=== PATIENT | female | born 1950 | race Caucasian/White ===

== ENCOUNTER → 2018-05-01 09:10 | Outpatient (CLI) | payer MEDICARE, OTHER, SELFPAY | PROVIDERS: Visit Provider Physician Assistant | DX: R30.0 Dysuria (principal) | CPT/HCPCS: 87077; 87086; 87186 ==

== ENCOUNTER → 2018-09-21 08:35 | Outpatient (CLI) | payer MEDICARE, OTHER, SELFPAY ==
[2018-09-21 09:13] LABS: Hemoglobin A1C% w Est Avg Glu 5.4 % (4.0-6.0)
[2018-09-21 09:36] LABS: BUN Creatinine Ratio 21.4 (6-22); Blood Urea Nitrogen 15 mg/dL (7-17); Calcium 9.8 mg/dL (8.4-10.2); Carbon Dioxide 29 mmol/L (22-32); Chloride 102 mmol/L (98-107); Cholesterol 143 mg/dL (140-199); Estimated Glomerular Filt Rate > 60.0 mL/min (>60); Glucose 124 mg/dL (80-110); HDL Cholesterol 60 mg/dL (40-60); HEMOLYSIS < 15 (0-50); LDL Cholesterol Calculated 63 mg/dL (<100); Potassium 4.6 mmol/L (3.4-5.1); Sodium 139 mmol/L (137-145); Triglycerides 102 mg/dL (35-150)
== END ==
PROVIDERS: PCP Internal Medicine; Visit Provider Internal Medicine
DX: E78.5 Hyperlipidemia, unspecified (principal); E11.9 Type 2 diabetes mellitus without complications; I10 Essential (primary) hypertension
CPT/HCPCS: 36415; 80048; 80061; 83036

== ENCOUNTER → 2018-10-27 18:25 | Outpatient (ROUT) | payer MEDICARE, OTHER, SELFPAY ==
[2018-10-27 18:32] LABS: Bacteria Urine None Seen
[2018-10-27 18:55] LABS: Appearance Urine UA CLEAR; Bilirubin Urine UA NEGATIVE (NEGATIVE); Color Urine UA YELLOW; Glucose Urine UA NEGATIVE (Negative); Ketones Urine UA NEGATIVE (NEGATIVE); Leukocyte Esterase Urine UA TRACE (NEGATIVE); Nitrite Urine UA NEGATIVE (Negative); Occult Blood Urine UA NEGATIVE (Negative); Protein Urine UA NEGATIVE (Negative); Urobilinogen Urine UA 0.2 E.U./dL (0.2)
[2018-10-27 19:42] LABS: RBC Urine 1-5/HPF (0-5/HPF); Renal Epithelial Cells Urine 0-1/HPF (0-1/HPF); Squamous Epithelial Cell Urine 1-5 /HPF (0-5/HPF); Transitional Epi Cells Urine 1-5/HPF (0-5/HPF); WBC Urine 1-5/HPF (0-5/HPF)
[2018-10-27 19:46] LABS: Calcium Oxalate Crystals Urine Moderate
[2018-10-27 20:23] LABS: Granular Casts Urine None seen; Hyaline Casts Urine None Seen; Other Casts Urine None Seen; Red Blood Cell Casts Urine None Seen; White Blood Cell Casts Urine None Seen
[2018-10-27 20:28] LABS: Urine Comments NOTE:
== END ==
PROVIDERS: PCP Internal Medicine; Visit Provider Internal Medicine
DX: B65.0 Schistosomiasis due to Schistosoma haematobium [urinary schistosomiasis] (principal); R30.0 Dysuria
CPT/HCPCS: 81001; 87086; 87177

== ENCOUNTER → 2018-10-28 12:56 | Outpatient (CLI) | payer MEDICARE, OTHER, SELFPAY ==
[2018-10-28 13:39] LABS: Add Manual Diff / Slide Review NO; Basophils Absolute Auto 0 /uL (0-100); Basophils Percent Auto 0.4 % (0-2); Eosinophils Absolute Auto 100 /uL (0-450); Eosinophils Percent Auto 1.5 % (2-4); Hematocrit 40.1 % (36-46); Hemoglobin 13.8 g/dL (12.0-16.0); Lymphocytes Absolute Auto 2000 /uL (1100-4500); Lymphocytes Percent Auto 22.5 % (25-40); Mean Corpuscular HGB Conc 34.4 % (30-36); Mean Corpuscular Hemoglobin 29.2 PG (26-34); Mean Corpuscular Volume 84.8 fL (80-100); Monocytes Absolute Auto 600 /uL (0-900); Monocytes Percent Auto 7.3 % (3-14); Neutrophils Absolute Auto 6000 /uL (1500-7000); Neutrophils Percent Auto 68.3 % (50-75); Platelet Count 276 X10^3/uL (150-400); Red Blood Cell Count 4.72 X10^6/uL (4.0-5.2); White Blood Cell Count 8.8 X10^3/uL (4.5-11.0)
== END ==
PROVIDERS: PCP Internal Medicine; Visit Provider Internal Medicine
DX: B65.0 Schistosomiasis due to Schistosoma haematobium [urinary schistosomiasis] (principal)
CPT/HCPCS: 36415; 85025

== ENCOUNTER → 2018-12-30 15:15 | Outpatient (CLI) | payer MEDICARE, OTHER, SELFPAY ==
--- NOTE | 2018-12-30 | DI.MG.S_ITS ---
BILATERAL DIGITAL SCREENING MAMMOGRAM 3D/2D WITH CAD: 12/30/2018 CLINICAL: Routine screening. Comparison is made to exams dated: 11/07/2014 mammogram, 02/11/2013 mammogram, and 10/17/2011 mammogram - [facility]. There are scattered fibroglandular elements in both breasts. Current study was also evaluated with a Computer Aided Detection (CAD) system. No significant masses, calcifications, or other findings are seen in either breast. There has been no significant interval change. IMPRESSION: NEGATIVE There is no mammographic evidence of malignancy. A 1 year screening mammogram is recommended. This exam was interpreted at Station ID: [id number]. NOTE: For mammograms, a report in lay terms will be sent to the patient. Approximately 15% of breast malignancies will not be visualized mammographically. In the management of a palpable breast mass, a negative mammogram must not discourage biopsy of a clinically suspicious lesion. Electronically Signed By: Holly townsend/felipe:12/30/2018 17:07:50 letter sent: Normal Exam ACR BI-RADS Category 1: Negative [id number]
== END ==
PROVIDERS: PCP Internal Medicine; Visit Provider Internal Medicine
DX: Z12.31 Encounter for screening mammogram for malignant neoplasm of breast (principal); Z13.820 Encounter for screening for osteoporosis; Z78.0 Asymptomatic menopausal state; Z82.62 Family history of osteoporosis
CPT/HCPCS: 77063; 77067; 77080

== ENCOUNTER → 2019-07-30 12:33 | Outpatient (CLI) | payer MEDICARE, OTHER, SELFPAY ==
--- NOTE | 2019-07-30 | DI.MRI.S_ITS ---
PROCEDURE: MR SHOULDER LT WO CON INDICATIONS: Unspecified disorder of synovium and tendon, left TECHNIQUE: Noncontrast oblique coronal T2 fast spin echo with fat saturation, oblique sagittal T1 spin echo and T2 fast spin echo with fat saturation, axial T1 spin echo and T2 fast spin echo with fat saturation through the shoulder. COMPARISON: None. FINDINGS: Image quality: Excellent. Rotator cuff: High-grade bursal sided partial-thickness slitlike tear of the supraspinatus tendon is seen, although no definite full-thickness involvement identified. Infraspinatus tendon appears grossly intact. Teres minor tendon appears intact. Subscapularis tendinopathy and thickening in keeping with interstitial tearing. No definite atrophy of the rotator cuff muscles Bones and bursae: No bone marrow contusions or fractures. Lateral downsloping appearance of the acromion Moderate acromioclavicular joint degeneration. Acromion demonstrates conventional anatomy, without an os acromiale. Mild subacromial-subdeltoid bursitis. Capsule and soft tissues: Labrum: Mild irregularity and fraying of the superior labrum without discrete tear, probably age-appropriate. A presumed posterior synovial fold incidentally noted image 03/07. Long head of the biceps tendon intact. The rotator interval appears normal, without fibrosis. Coracohumeral ligament intact. IMPRESSION: High-grade bursal sided slitlike partial-thickness tear of the supraspinatus tendon. No definite full-thickness defect Subscapularis tendinopathy and thickening. Mild subacromial-subdeltoid bursitis Lateral downsloping appearance of the acromion. Irregularity and fraying the superior labrum, probably age-appropriate, versus chronic tear with subsequent fibrosis and scarring. Dictated by: Satish Rock M.D. on 07/30/2019 at 14:06 Approved by: Satish Rock M.D. on 07/30/2019 at 14:32
== END ==
PROVIDERS: PCP Internal Medicine; Referring Provider Orthopaedic Surgery; Visit Provider Orthopaedic Surgery
DX: M67.912 Unspecified disorder of synovium and tendon, left shoulder (principal); M75.112 Incomplete rotator cuff tear or rupture of left shoulder, not specified as traumatic; M75.52 Bursitis of left shoulder
CPT/HCPCS: 73221

== ENCOUNTER → 2019-09-15 09:26 | Outpatient (CLI) | payer MEDICARE, OTHER, SELFPAY ==
[2019-09-15 10:22] LABS: Hemoglobin A1C% w Est Avg Glu 6.2 % (4.0-6.0)
[2019-09-15 10:35] LABS: BUN Creatinine Ratio 26.3 (6-22); Blood Urea Nitrogen 21 mg/dL (7-17); Calcium 9.5 mg/dL (8.4-10.2); Carbon Dioxide 26 mmol/L (22-32); Chloride 106 mmol/L (98-107); Cholesterol 235 mg/dL (140-199); Estimated Glomerular Filt Rate > 60.0 mL/min (>60); Glucose 128 mg/dL (80-110); HDL Cholesterol 73 mg/dL (40-60); HEMOLYSIS < 15 (0-50); LDL Cholesterol Calculated 121 mg/dL (<100); Potassium 4.5 mmol/L (3.4-5.1); Sodium 138 mmol/L (137-145); Triglycerides 206 mg/dL (35-150)
== END ==
PROVIDERS: PCP Internal Medicine; Referring Provider Internal Medicine; Visit Provider Internal Medicine
DX: I10 Essential (primary) hypertension (principal); E78.5 Hyperlipidemia, unspecified; E11.9 Type 2 diabetes mellitus without complications
CPT/HCPCS: 36415; 80048; 80061; 83036

== ENCOUNTER → 2020-01-21 08:56 | Outpatient (CLI) | payer MEDICARE, OTHER, SELFPAY ==
[2020-01-21 11:09] LABS: Hemoglobin A1C% w Est Avg Glu 6.2 % (4.0-6.0)
[2020-01-21 11:31] LABS: Alanine Aminotransferase 19 IU/L (<35); Albumin 4.2 g/dL (3.5-5.0); Albumin Globulin Ratio 1.4 (1.0-2.8); Alkaline Phosphatase 81 U/L (38-126); Aspartate Aminotransferase 24 IU/L (14-36); Bilirubin Total 1.1 mg/dL (0.2-1.3); Blood Urea Nitrogen 21 mg/dL (7-17); Calcium 9.3 mg/dL (8.4-10.2); Carbon Dioxide 27 mmol/L (22-32); Chloride 101 mmol/L (98-107); Cholesterol 272 mg/dL (140-199); Estimated Glomerular Filt Rate 55.3 mL/min (>60); Globulin 2.9 g/dL (1.7-4.1); Glucose 125 mg/dL (80-110); HDL Cholesterol 69 mg/dL (40-60); HEMOLYSIS < 15 (0-50); LDL Cholesterol Calculated 166 mg/dL (<100); Potassium 4.5 mmol/L (3.4-5.1); Sodium 136 mmol/L (137-145); Total Protein 7.1 g/dL (6.3-8.2); Triglycerides 187 mg/dL (35-150)
== END ==
PROVIDERS: PCP Internal Medicine; Referring Provider Internal Medicine; Visit Provider Internal Medicine
DX: I10 Essential (primary) hypertension (principal); E11.9 Type 2 diabetes mellitus without complications; E78.5 Hyperlipidemia, unspecified
CPT/HCPCS: 36415; 80053; 80061; 83036

== ENCOUNTER → 2020-07-01 15:12 | Outpatient (CLI) | payer MEDICARE, OTHER, SELFPAY ==
--- NOTE | 2020-07-01 15:14 | DI.MG.S_ITS ---
BILATERAL DIGITAL SCREENING MAMMOGRAM 3D/2D WITH CAD: 07/01/2020 CLINICAL: Routine screening. Comparison is made to exams dated: 12/30/2018 mammogram and 11/07/2014 mammogram - [facility]. There are scattered fibroglandular elements in both breasts. Current study was also evaluated with a Computer Aided Detection (CAD) system. No significant masses, calcifications, or other findings are seen in either breast. There has been no significant interval change. IMPRESSION: NEGATIVE There is no mammographic evidence of malignancy. A 1 year screening mammogram is recommended. This exam was interpreted at Station ID: [id number]. NOTE: For mammograms, a report in lay terms will be sent to the patient. Approximately 15% of breast malignancies will not be visualized mammographically. In the management of a palpable breast mass, a negative mammogram must not discourage biopsy of a clinically suspicious lesion. Electronically Signed By: Leonel bonilla/felipe:07/03/2020 09:27:19 letter sent: Normal Exam ACR BI-RADS Category 1: Negative [id number]
== END ==
PROVIDERS: PCP Internal Medicine; Referring Provider Internal Medicine; Visit Provider Internal Medicine
DX: Z12.31 Encounter for screening mammogram for malignant neoplasm of breast (principal)
CPT/HCPCS: 77063; 77067

== ENCOUNTER → 2020-09-05 19:16 | Outpatient (ROUT) | payer MEDICARE, OTHER, SELFPAY ==
[2020-09-05 20:22] LABS: BUN Creatinine Ratio 24.1 (6-22); Blood Urea Nitrogen 19 mg/dL (7-17); Calcium 9.5 mg/dL (8.4-10.2); Carbon Dioxide 23 mmol/L (22-32); Chloride 99 mmol/L (98-107); Estimated Glomerular Filt Rate > 60.0 mL/min (>60); Glucose 83 mg/dL (80-110); HEMOLYSIS < 15 (0-50); Magnesium 2.1 mg/dL (1.6-2.3); Potassium 4.4 mmol/L (3.4-5.1); Sodium 134 mmol/L (137-145)
== END ==
PROVIDERS: PCP Internal Medicine; Visit Provider Family Medicine
DX: R20.2 Paresthesia of skin (principal)
CPT/HCPCS: 80048; 83735

== ENCOUNTER → 2020-12-12 07:05 | Outpatient (CLI) | payer MEDICARE, OTHER, SELFPAY ==
[2020-12-12 08:16] LABS: Add Manual Diff / Slide Review NO; Basophils Absolute Auto 0 /uL (0-100); Basophils Percent Auto 0.5 % (0-2); Eosinophils Absolute Auto 200 /uL (0-450); Eosinophils Percent Auto 2.1 % (2-4); Hematocrit 41.1 % (36-46); Hemoglobin 13.8 g/dL (12.0-16.0); Lymphocytes Absolute Auto 1700 /uL (1100-4500); Lymphocytes Percent Auto 23.2 % (25-40); Mean Corpuscular HGB Conc 33.7 % (30-36); Mean Corpuscular Hemoglobin 28.8 PG (26-34); Mean Corpuscular Volume 85.4 fL (80-100); Monocytes Absolute Auto 600 /uL (0-900); Neutrophils Absolute Auto 4800 /uL (1500-7000); Neutrophils Percent Auto 66.2 % (50-75); Platelet Count 246 X10^3/uL (150-400); Red Blood Cell Count 4.81 X10^6/uL (4.0-5.2); Red Cell Distribution Width 14.6 % (11.6-14.8); White Blood Cell Count 7.3 X10^3/uL (4.5-11.0)
[2020-12-12 08:28] LABS: Hemoglobin A1C% w Est Avg Glu 5.2 % (4.0-6.0)
[2020-12-12 08:52] LABS: Alanine Aminotransferase 16 IU/L (<35); Albumin Globulin Ratio 1.7 (1.0-2.8); Alkaline Phosphatase 69 U/L (38-126); Aspartate Aminotransferase 24 IU/L (14-36); BUN Creatinine Ratio 18.3 (6-22); Bilirubin Total 0.8 mg/dL (0.2-1.3); Blood Urea Nitrogen 15 mg/dL (7-17); Calcium 9.6 mg/dL (8.4-10.2); Carbon Dioxide 29 mmol/L (22-32); Chloride 102 mmol/L (98-107); Cholesterol 136 mg/dL (140-199); Estimated Glomerular Filt Rate > 60.0 mL/min (>60); Globulin 2.4 g/dL (1.7-4.1); Glucose 90 mg/dL (80-110); HDL Cholesterol 66 mg/dL (40-60); HEMOLYSIS < 15 (0-50); LDL Cholesterol Calculated 55 mg/dL (<100); Potassium 4.5 mmol/L (3.4-5.1); Sodium 137 mmol/L (137-145); Total Protein 6.4 g/dL (6.3-8.2); Triglycerides 77 mg/dL (35-150)
[2020-12-12 08:53] LABS: Creatinine Urine Random 65.7 mg/dL
[2020-12-12 09:01] LABS: Microalbumin Urine Random < 0.6 mg/dL (0-1.6)
== END ==
PROVIDERS: PCP Student in an Organized Health Care Education/Training Program; Referring Provider Student in an Organized Health Care Education/Training Program; Visit Provider Student in an Organized Health Care Education/Training Program
DX: E11.9 Type 2 diabetes mellitus without complications (principal); E78.5 Hyperlipidemia, unspecified
CPT/HCPCS: 36415; 80053; 80061; 82043; 82570; 83036; 85025

== ENCOUNTER → 2021-02-16 12:08 | Outpatient (CLI) | payer MEDICARE, OTHER, SELFPAY ==
--- NOTE | 2021-02-16 | DI.RAD.S_ITS ---
PROCEDURE: XR DEXA AXIAL SKELETON INDICATIONS: Unspecified menopausal and perimenopausal disorder COMPARISON: None. FINDINGS: This blank DEXA report has been sent in error by the PACS system. The correct and complete report will be forthcoming in 1-2 days. Thank you for your patience and understanding. Dictated by: Leonel Rose M.D. on 02/16/2021 at 12:31 Approved by: Leonel Rose M.D. on 02/16/2021 at 12:31
== END ==
PROVIDERS: PCP Student in an Organized Health Care Education/Training Program; Referring Provider Student in an Organized Health Care Education/Training Program; Visit Provider Student in an Organized Health Care Education/Training Program
DX: N95.9 Unspecified menopausal and perimenopausal disorder (principal); M85.851 Other specified disorders of bone density and structure, right thigh
CPT/HCPCS: 77080

== ENCOUNTER → 2021-03-23 09:12 | Outpatient (CLI) | payer MEDICARE, OTHER, SELFPAY ==
[2021-03-23 10:48] LABS: COVID19 -Nasal RAPID Negative (Negative)
== END ==
PROVIDERS: PCP Student in an Organized Health Care Education/Training Program; Visit Provider Surgery
DX: Z01.812 Encounter for preprocedural laboratory examination (principal); Z20.822 Contact with and (suspected) exposure to COVID-19
CPT/HCPCS: 87635; C9803

== ENCOUNTER 2021-03-26 08:11 | Day surgery (SDC) | payer MEDICARE, OTHER, SELFPAY ==
[2021-03-26] VITALS (8 sets, daily range): BP systolic 114–139; BP diastolic 62–74; PULSE 57–66; RESP 10–16; TEMP 36.1–36.8; O2SAT 97–99; BMI 22.6
[2021-03-26] MEDS: LACTATED RINGERS 1,000 ML 200 ML IV (08:46)
--- NOTE | 2021-03-26 09:19 | PM.HP.1 ---
History of Present Illness History of Present Illness Date Patient Seen: 03/26/21 Time Patient Seen: 09:19 Chief complaint: SCREENING COLONOSCOPY Narrative: The patient presents for colorectal sreening. Previous colonoscopy 10 years ago normal. Her mother had a history of colon cancer. On further history denies any recent gastrointestinal symptoms. No nausea, vomiting, abdominal pain, loss of appetite, unexplained weight loss, change in bowel habits, diarrhea, constipation, melena, hematochezia, or bright red blood per rectum. Patient History Family & Social History Social History: household members spouse Tobacco & Substance use: Smoking Status Never smoker alcohol intake current Substance Use Type does not use Meds Home Medications and Allergies Home Medications Medication Instructions Recorded Confirmed Type sertraline 100 mg tablet 100 mg PO QDAY #0 04/22/11 03/10/19 History simvastatin 40 mg tablet 40 mg PO QDAY #0 04/22/11 03/10/19 History bupropion HCl PO 05/01/18 03/10/19 History amlodipine 5 mg tablet mg 03/26/21 History metformin 500 mg tablet,extended mg PO 03/26/21 History release 24 hr Allergies Allergy/AdvReac Type Severity Reaction Status Date / Time bacitracin Allergy Intermediate OINTMENT Verified 03/26/21 08:24 USED ON EYE AND CAUSED A RASH LOCALIZED neomycin Allergy Intermediate SKIN Verified 03/26/21 08:24 [From Neosporin + Pain HATFIELD AND Relief] BLISTERS polymyxin B Allergy Intermediate SKIN Verified 03/26/21 08:24 [From Neosporin + Pain HATFIELD AND Relief] BLISTERS pramoxine Allergy Intermediate SKIN Verified 03/26/21 08:24 [From Neosporin + Pain HATFIELD AND Relief] BLISTERS Exam Vital Signs (past 8 hours): - 03/26/21 08:31 Temperature 98.2 F Pulse Rate 62 Respiratory Rate 16 Blood Pressure 132/74 Pulse Oximetry 99 Oxygen Delivery Method Room Air Narrative Exam Narrative: Constitutional-She is oriented to person, place and time. No apparent distress Cardiovascular- regular rate, no peripheral edema Pulmonary-unlabored respiratory effort, no audible wheezing Abdominal-soft, non-tender, non-distended Musculoskeletal-no cyanosis or clubbing Neurological-nonfocal, normal strength throughout Skin-warm and dry Assessment & Plan Assessment & Plan narrative: The patient requires colorectal screening and colonoscopy is recommended. Technical details were discussed. Risks, benefits, alternatives explained. Risks including but not limited to myocardial infarction, aspiration, bleeding, pain, missed lesion, incomplete examination, need for further radiographic studies, colonic perforation, and need for major abdominal surgery were discussed. All questions were answered to their satisfaction, and they are in agreement with this plan. Time Spent With Patient Critical Care time: I spent a total of [] minutes of critical care time on this patient's care today; this time is exclusive of procedural time.
[2021-03-26] MEDS: fentaNYL 250 MCG/5 ML INJ IV (09:28)
[2021-03-26] MEDS: MIDAZOLAM 5 MG/5 ML VIAL IV (09:33)
--- NOTE | 2021-03-26 09:57 | PM.OP.COLON ---
Operative Date/Time/Diagnoses Date of procedure: 03/26/21 Time of procedure: 09:57 Pre-op diagnosis: Screening colonoscopy Post-op diagnosis: same Procedure & Clinicians Study performed: Colonoscopy Same procedure as scheduled: Yes Indications: Screening, family history of colon cancer Surgeon: Manuel Feliciano Procedure Notes Procedure in detail: Medications: Conscious sedation using 5 mg IV midazolam and 150 mcg IV of fentanyl The history and physical was performed/updated and the patient is ASA class is 2. The procedure was discussed in detail with the patient. Potential risks complications including infection, bleeding, missed diagnosis, perforation, need for surgery, and were explained. Their questions were answered and informed consent was obtained. Patient was brought to the procedure room and placed standard monitoring equipment. The patient's vital signs were monitored continuously throughout the entire procedure. Prior to starting time-out was performed. The patient was placed in the left lateral recumbent position. Procedural sedation was administered. Examination began with a thorough inspection of the perianal area there was no evidence of fissures, fistulae, external hemorrhoids or cutaneous malignancy. The colonoscopy scope was then placed into the anal canal and was advanced to the cecum, which was identified by the ileocecal valve, and the confluence of the taenia. The scope was then slowly withdrawn examining colon thoroughly in all directions, irrigating it of any residual stool. FINDINGS 1. No masses or polyps 2. Tortuous colon The patient tolerated the procedure well. They will be discharged once criteria are met. The prep was of good/excellent quality. The withdrawl time was 6 minutes. The sedation time was 27 minutes. Specimen(s): none sent Complications: none Impression: Normal colonoscopy Post-procedure Recommendations: Colonoscopy in 5 years Disposition: same day surgery
--- NOTE | 2021-03-26 10:54 | SUR.PHASEI ---
1040 report given to KIMBERLY Bay
== END 2021-03-26 11:00 | disposition home or self-care (01) ==
PROVIDERS: PCP Student in an Organized Health Care Education/Training Program; Referring Provider Surgery; Visit Provider Surgery
PROC: 0DJD8ZZ Inspection of Lower Intestinal Tract, Via Natural or Artificial Opening Endoscopic (ICD-10-PCS; CPT 45378; principal; 2021-03-26 09:15)
DX: Z12.11 Encounter for screening for malignant neoplasm of colon (principal); Z80.0 Family history of malignant neoplasm of digestive organs
CPT/HCPCS: G0105; 82962; 99152; 99153; J2250; J3010

== ENCOUNTER → 2021-06-06 15:08 | Outpatient (CLI) | payer MEDICARE, OTHER, SELFPAY ==
--- NOTE | 2021-06-06 15:13 | DI.RAD.S_ITS ---
PROCEDURE: XR CHEST 2V INDICATIONS: CHEST PAIN TECHNIQUE: 2 views of the chest were acquired. COMPARISON: [facility], CHEST 2 VIEW, 06/19/2017, 14:42. [facility], CHEST 1 VIEW, 04/22/2011, 3:22. FINDINGS: Surgical changes and devices: None. Lungs and pleura: Lungs are clear. No pleural effusions or pneumothorax. Mediastinum: Mediastinal contours are normal. Heart size is normal. Bones and chest wall: No suspicious bony abnormalities. Soft tissues appear unremarkable. IMPRESSION: No acute cardiopulmonary abnormality. Dictated by: Bishnu Grullon M.D. on 06/06/2021 at 16:30 Approved by: Bishnu Grullon M.D. on 06/06/2021 at 16:35
== END ==
PROVIDERS: PCP Student in an Organized Health Care Education/Training Program; Referring Provider Internal Medicine; Visit Provider Internal Medicine
DX: R07.1 Chest pain on breathing (principal)
CPT/HCPCS: 71046

== ENCOUNTER 2021-10-21 21:01 | Inpatient (IN) | payer MEDICARE, OTHER, SELFPAY ==
[2021-10-21 21:10] VITALS: BP 132/98; PULSE 100; RESP 18; TEMP 39.3; O2SAT 98; BMI 26.5
[2021-10-21 21:28] VITALS: BP 143/66; PULSE 93; O2SAT 96
[2021-10-21] MEDS: ONDANSETRON 4 MG/2 ML INJ IV (21:29)
[2021-10-21] MEDS: SODIUM CHLORIDE 0.9% 2,041.17 ML 680.39 ML IV (21:29)
[2021-10-21 21:30] VITALS: BP 130/60; PULSE 94; O2SAT 95
[2021-10-21] MEDS: levoFLOXacin 750 MG/150 ML PIGGYBACK 100 MG IV (21:41)
[2021-10-21 21:46] LABS: Lactate (Lactic Acid) 1.3 mmol/L (0.7-2.1)
[2021-10-21 21:47] LABS: Alanine Aminotransferase 15 IU/L (<35); Albumin 3.8 g/dL (3.5-5.0); Albumin Globulin Ratio 1.2 (1.0-2.8); Alkaline Phosphatase 80 U/L (38-126); Aspartate Aminotransferase 23 IU/L (14-36); BUN Creatinine Ratio 19.4 (6-22); Bilirubin Total 1.2 mg/dL (0.2-1.3); Blood Urea Nitrogen 24 mg/dL (7-17); Calcium 8.6 mg/dL (8.4-10.2); Carbon Dioxide 24 mmol/L (22-32); Chloride 99 mmol/L (98-107); Estimated Glomerular Filt Rate 47 mL/min (>60); Globulin 3.2 g/dL (1.7-4.1); Glucose 147 mg/dL (80-110); HEMOLYSIS < 15 (0-50); Hematocrit 34.8 % (36-46); Hemoglobin 11.9 g/dL (12.0-16.0); Lipase 172 U/L (23-300); Mean Corpuscular HGB Conc 34.2 % (30-36); Mean Corpuscular Hemoglobin 29.1 PG (26-34); Mean Corpuscular Volume 85.1 fL (80-100); Platelet Count 242 X10^3/uL (150-400); Potassium 4.2 mmol/L (3.4-5.1); Red Blood Cell Count 4.09 X10^6/uL (4.0-5.2); Red Cell Distribution Width 13.2 % (11.6-14.8); Sodium 131 mmol/L (137-145); White Blood Cell Count 16.7 X10^3/uL (4.5-11.0)
[2021-10-21 21:48] LABS: Add Manual Diff / Slide Review YES
--- NOTE | 2021-10-21 21:56 | ED.ABDPAIN ---
HPI - Abdominal Pain General Chief Complaint: Abdominal Pain Stated Complaint: FEVER 102f, abd PAIN TO LOWER BACK PAIN Time Seen by Provider: 10/21/21 21:27 Source: patient Mode of arrival: Ambulatory History of Present Illness HPI narrative: 71-year-old female nonsmoker with history of hypertension, hyperlipidemia and diabetes presents with her in the chief complaint of a sudden onset left lower quadrant pain that woke her from sleep yesterday morning and has resulted in multiple episodes of nausea and vomiting. She has had fever and shaking chills along with poor appetite and weakness. She has been mildly confused. She states her urine has been a bit cloudy but traditionally when she has urine infections she has more classic symptoms such as dysuria, frequency and urgency which were not the case this time around. She denies runny nose, sore throat or cough. She has no chest pain or shortness of breath. She denies any constipation but did have 1 episode of loose stool with an episode of vomiting yesterday. She states that her pain is worse when she moves and improves with rest. Related Data Home Medications Medication Instructions Recorded Confirmed sertraline 100 mg tablet 100 mg PO QDAY #0 04/22/11 03/10/19 simvastatin 40 mg tablet 40 mg PO QDAY #0 04/22/11 03/10/19 bupropion HCl PO 05/01/18 03/10/19 amlodipine 5 mg tablet mg 03/26/21 metformin 500 mg tablet,extended mg PO 03/26/21 release 24 hr Allergies Allergy/AdvReac Type Severity Reaction Status Date / Time bacitracin Allergy Intermediate OINTMENT Verified 10/21/21 21:10 USED ON EYE AND CAUSED A RASH LOCALIZED neomycin Allergy Intermediate SKIN Verified 10/21/21 21:10 [From Neosporin + Pain HATFIELD AND Relief] BLISTERS polymyxin B Allergy Intermediate SKIN Verified 10/21/21 21:10 [From Neosporin + Pain HATFIELD AND Relief] BLISTERS pramoxine Allergy Intermediate SKIN Verified 10/21/21 21:10 [From Neosporin + Pain HATFIELD AND Relief] BLISTERS Review of Systems Review of Systems Narrative: GENERAL: See HPI HEENT: Denies sinus pain, ear pain, sore throat, difficulty swallowing, dizziness. RESPIRATORY: Denies dyspnea, cough, wheezing, hemoptysis, sputum. CARDIOVASCULAR: Denies chest pain, palpitations, orthopnea, edema, GASTROINTESTINAL: See HPI : See HPI MUSCULOSKELETAL: denies weakness, joint pain, or bony pain SKIN: Denies rash, skin lesions, or other NEUROLOGIC: Denies weakness, headache, numbness, change in speech, confusion, seizures, incoordination. PSYCHIATRIC: No concerning psychosocial issues. 12 point review of systems is negative except for those stated above Patient History Social History household members: spouse Smoking Status: Never smoker alcohol intake: current Smoking Status: Never smoker Substance Use Type: does not use Exam Narrative Exam Narrative: GENERAL: [71] year old patient appears stated age. Well-developed patient, in moderate distress. HEAD: Atraumatic. Normocephalic. EYES: Pupils equal round and reactive. Extraocular motions intact. No scleral icterus. No injection or drainage. ENT: Nose without bleeding, purulent drainage. Throat without erythema, tonsillar hypertrophy or exudate. Airway patent. NECK: Trachea midline. Non tender CARDIOVASCULAR: Tachycardic and regular rhythm without murmurs, gallops, or rubs. RESPIRATORY: Clear to auscultation. Breath sounds equal bilaterally. No wheezes, rales, or rhonchi. GASTROINTESTINAL: Abdomen soft, left lower quadrant pain, no rebound nondistended. EXTREMITIES: No edema or joint tenderness. BACK: Nontender without deformity or crepitance. Left flank tender to palpation NEURO: AOx3. SKIN: No rash or erythema of visible areas Initial Vital Signs Initial Vital Signs: Vital Signs Temperature 102.7 F H 10/21/21 21:10 Pulse Rate 100 H 10/21/21 21:10 Respiratory Rate 18 10/21/21 21:10 Blood Pressure 132/98 H 10/21/21 21:10 Pulse Oximetry 98 10/21/21 21:10 Course Course Course Narrative: Sepsis Guideline Compliance It is my opinion that the patient DOES in fact have a likely infectious etiology for meeting Sepsis Criteria. SIRS Criteria: [ ] HR (2109:), [ ] BP (time:), [ 22] (2199) , [16.7 ] WBC (2124) Criteria for Severe Sepsis: [ ] Lactate > 2 [ ] BP < 90 [ ] Creat > 2.0 [ ] T. Bili > 2.0 [ x] No criteria for Severe Sepsis / Septic Shock in ED Time of Severe Sepsis / Septic Shock: [ ] Upon meeting sepsis criteria resuscitation according to Best Practice Statements and in accordance with this patient?s safety the following was initiated: Fluids: 30mL/kg of IV crystalloid fluid ordered to be given within the first 1 hour of meeting sepsis criteria. [ x] ABW used [ ] IBW (insert IBW) used due to BMI > 30 Antibiotics: IV antimicrobials be initiated as soon as possible after recognition and within one hour for both sepsis and septic shock Orders Ordered: ED Orders 10/21/21 21:25 Complete Blood Count AUTO DIFF Stat Comprehensive Metabolic Panel Stat Lactate (Lactic Acid) Stat Lipase Stat Procalcitonin Stat 10/21/21 21:37 Blood Culture Stat 10/21/21 21:41 Urine Culture Stat Urine Microscopic Stat 10/21/21 22:07 CT abdomen pelvis w con Stat 10/21/21 22:10 Chest [XR chest 1V] Stat 10/21/21 22:19 EKG-12 Lead Stat 10/21/21 22:39 COVID19 -Nasal RAPID/Pre-Proc Stat Sodium Chloride (Normal Saline 0.9%) 2,041.17 mls @ 680.39 mls/hr 30 ml/kg infuse over 3 hr (2041.17 ml) IV NOW ONE Stop: 10/22/21 00:26 Last Admin: 10/21/21 21:29 Dose: 680.39 mls/hr Documented by: PURVI Discontinued Medications Levofloxacin (Levaquin) 750 mg in 150 mls @ 100 mls/hr IV NOW ONE Stop: 10/21/21 22:56 Last Admin: 10/21/21 21:41 Dose: 100 mls/hr Documented by: MANA Ondansetron HCl (Ondansetron 4 Mg/2 Ml Inj) 4 mg IV NOW ONE Stop: 10/21/21 21:22 Last Admin: 10/21/21 21:29 Dose: 4 mg Documented by: PURVI Vital Signs Vital signs: Vital Signs - 8 hr 10/21/21 21:10 10/21/21 21:28 10/21/21 21:30 Temperature 102.7 F H Pulse Rate 100 H 93 H 94 H Respiratory Rate 18 Blood Pressure 132/98 H 143/66 H 130/60 Pulse Oximetry 98 96 95 10/21/21 22:00 10/21/21 22:38 Temperature Pulse Rate 96 H 97 H Respiratory Rate 22 23 Blood Pressure 129/62 Pulse Oximetry 97 98 MDM - Abdominal Pain Lab Data Result diagrams: 10/21/21 21:25 10/21/21 21:25 Labs: Lab Results 10/21/21 10/21/21 10/21/21 Range/Units 21:25 21:25 21:25 WBC 16.7 H (4.5-11.0) X10^3/uL RBC 4.09 (4.0-5.2) X10^6/uL Hgb 11.9 L (12.0-16.0) g/dL Hct 34.8 L (36-46) % MCV 85.1 (80-100) fL MCH 29.1 (26-34) PG MCHC 34.2 (30-36) % RDW 13.2 (11.6-14.8) % Plt Count 242 (150-400) X10^3/uL Neut % (Auto) Not Reportable Lymph % (Auto) Not Reportable [place] % (Auto) Not Reportable Eos % (Auto) Not Reportable Baso % (Auto) Not Reportable Lymph # (Auto) Not Reportable [place] # (Auto) Not Reportable Baso # (Auto) Not Reportable Total Counted 100 Seg Neutrophils % 86.0 H (38-70) % Band Neutrophils % 3.0 (3-7) % Lymphocytes % (Manual) 6.0 L (25-45) % Monocytes % (Manual) 5.0 (2-11) % Neutrophils # (Manual) 20618 H (8239-2286) /uL RBC Morphology Normal morphology Sodium 131 L (137-145) mmol/L Potassium 4.2 (3.4-5.1) mmol/L Chloride 99 (98-107) mmol/L Carbon Dioxide 24 (22-32) mmol/L BUN 24 H (7-17) mg/dL Creatinine 1.24 H (0.52-1.04) mg/dL Estimated GFR 47 L (>60) mL/min BUN/Creatinine Ratio 19.4 (6-22) Glucose 147 H (80-110) mg/dL Lactate 1.3 (0.7-2.1) mmol/L Calcium 8.6 (8.4-10.2) mg/dL Total Bilirubin 1.2 (0.2-1.3) mg/dL AST 23 (14-36) IU/L ALT 15 (<35) IU/L Alkaline Phosphatase 80 (38-126) U/L Total Protein 7.0 (6.3-8.2) g/dL Albumin 3.8 (3.5-5.0) g/dL Globulin 3.2 (1.7-4.1) g/dL Albumin/Globulin Ratio 1.2 (1.0-2.8) Lipase 172 (23-300) U/L Procalcitonin (<0.5) ng/mL Urine RBC (0-5/HPF) Urine WBC (0-5/HPF) Urine Bacteria (None) Ur Culture Indicated? Micro UA Comment SARS-CoV-2 (PCR) (Negative) 10/21/21 10/21/21 10/21/21 Range/Units 21:25 21:41 22:39 WBC (4.5-11.0) X10^3/uL RBC (4.0-5.2) X10^6/uL Hgb (12.0-16.0) g/dL Hct (36-46) % MCV (80-100) fL MCH (26-34) PG MCHC (30-36) % RDW (11.6-14.8) % Plt Count (150-400) X10^3/uL Neut % (Auto) Lymph % (Auto) [place] % (Auto) Eos % (Auto) Baso % (Auto) Lymph # (Auto) [place] # (Auto) Baso # (Auto) Total Counted Seg Neutrophils % (38-70) % Band Neutrophils % (3-7) % Lymphocytes % (Manual) (25-45) % Monocytes % (Manual) (2-11) % Neutrophils # (Manual) (3584-5177) /uL RBC Morphology Sodium (137-145) mmol/L Potassium (3.4-5.1) mmol/L Chloride (98-107) mmol/L Carbon Dioxide (22-32) mmol/L BUN (7-17) mg/dL Creatinine (0.52-1.04) mg/dL Estimated GFR (>60) mL/min BUN/Creatinine Ratio (6-22) Glucose (80-110) mg/dL Lactate (0.7-2.1) mmol/L Calcium (8.4-10.2) mg/dL Total Bilirubin (0.2-1.3) mg/dL AST (14-36) IU/L ALT (<35) IU/L Alkaline Phosphatase (38-126) U/L Total Protein (6.3-8.2) g/dL Albumin (3.5-5.0) g/dL Globulin (1.7-4.1) g/dL Albumin/Globulin Ratio (1.0-2.8) Lipase (23-300) U/L Procalcitonin 8.40 H (<0.5) ng/mL Urine RBC 1-5/hpf (0-5/HPF) Urine WBC 10-30/hpf H (0-5/HPF) Urine Bacteria Many (>30) H (None) Ur Culture Indicated? Specimen cultured Micro UA Comment * SARS-CoV-2 (PCR) Negative (Negative) Point of care testing: Urine Dip Bedside Urine Glucose Negative Bedside Urine Bilirubin - Negative Bedside Urine Ketone - Negative Urine Specific [place] 1.01 Bedside Urine Occult Blood +++ Bedside Urine pH 6.0 Bedside Urine Protein ++ 100 Bedside Urine Urobilinogen - Negative Bedside Urine Nitrite - Negative Bedside Urine Leukocytes ++ [address] scan - abdomen/pelvis: Radiologist's Impression: Launch?[place] [address] CT Scan Report Signed Patient: Amelie Tucker MR#: [id number] : 1950 Acct:[id number] Age/Sex: 71 / F Date of Service: 10/21/21 Loc: ED Accession Number: [id number] ?? Procedure: CT abdomen pelvis w con Ordering Provider: Grey Martinez D.O. PROCEDURE:? CT ABDOMEN PELVIS W CON ? INDICATIONS:? severe lower abdominal pain, sepsis ? TECHNIQUE:? After the administration of IV contrast, axial sections were acquired from the lung bases to the pubic symphysis.? Coronal and sagittal reformats were performed.? For radiation dose reduction, the following was used:? automated exposure control, adjustment of mA and/or kV according to patient size. ? COMPARISON:? None. ? FINDINGS:? Image quality:? Excellent.? ? Lung bases:? There is mild dependent atelectasis.? ? Heart:? Heart is normal in size.? There is a small hiatal hernia. ? ? ABDOMEN: Liver:? No mass lesion. Gallbladder:? Within normal limits without calcified gallstones.? ? Biliary ducts:? No biliary ductal dilatation.? ? Pancreas:? Unremarkable.? ? Spleen:? Normal in size.? ? Adrenal Glands:? No adrenal nodules.? ? Kidneys and Ureters:? There is heterogeneous enhancement of the left kidney suggestive of pyelonephritis.? No hydronephrosis.? There is mild urothelial thickening and enhancement in the left renal collecting system and proximal left ureter.? No renal stones.? No perinephric or intrarenal fluid collections to suggest abscess.? There is mild left perinephric stranding.? No right hydronephrosis or right urothelial thickening.? There are small hypodense foci within the kidneys which are too small to characterize but likely represent cysts.? ? Stomach and Bowel:? Stomach, small bowel loops, and colon are normal in caliber and wall thickness.? No pericecal inflammatory changes to suggest appendicitis.? There are a few colonic diverticula without acute diverticulitis.? Peritoneum:? No abnormal intraperitoneal fluid.? No free air.? ? Ventral Wall: ? No hernia.? Abdominal Nodes:? No retroperitoneal or mesenteric adenopathy by size criteria.? Vessels:? Aorta and inferior vena cava are normal in size.? ? PELVIS: Pelvic Organs:? Unremarkable.? ? Bladder:? Unremarkable.? ? Pelvic Nodes: No enlarged lymph nodes.? Miscellaneous: No inguinal hernias are seen. ? ? ? Bones:? Visualized osseous structures demonstrate no suspicious focal lesions. ? IMPRESSION:? ? 1.? Heterogeneous enhancement of the left kidney is nonspecific but is suggestive of pyelonephritis.? No hydronephrosis.? No perinephric or intrarenal abscess collections. ? 2. Mild asymmetric left urothelial thickening and enhancement in the left renal collecting system and proximal left ureter compatible with a urinary tract infection.? ? 3. No evidence of diverticulitis. ? ? Dictated by: Suhas Flanagan M.D. on 10/21/2021 at 23:01 ? ? Approved by: Suhas Flanagan M.D. on 10/21/2021 at 23:07 ? Discharge Plan Departure Patient Disposition: Admitted As Inpatient Clinical Impression: Acute pyelonephritis, Sepsis Admit Date/Time: 10/21/21 23:18
[2021-10-21 22:00] VITALS: BP 129/62; PULSE 96; RESP 22; O2SAT 97
--- NOTE | 2021-10-21 22:07 | DI.CT.S_ITS ---
PROCEDURE: CT ABDOMEN PELVIS W CON INDICATIONS: severe lower abdominal pain, sepsis TECHNIQUE: After the administration of IV contrast, axial sections were acquired from the lung bases to the pubic symphysis. Coronal and sagittal reformats were performed. For radiation dose reduction, the following was used: automated exposure control, adjustment of mA and/or kV according to patient size. COMPARISON: None. FINDINGS: Image quality: Excellent. Lung bases: There is mild dependent atelectasis. Heart: Heart is normal in size. There is a small hiatal hernia. ABDOMEN: Liver: No mass lesion. Gallbladder: Within normal limits without calcified gallstones. Biliary ducts: No biliary ductal dilatation. Pancreas: Unremarkable. Spleen: Normal in size. Adrenal Glands: No adrenal nodules. Kidneys and Ureters: There is heterogeneous enhancement of the left kidney suggestive of pyelonephritis. No hydronephrosis. There is mild urothelial thickening and enhancement in the left renal collecting system and proximal left ureter. No renal stones. No perinephric or intrarenal fluid collections to suggest abscess. There is mild left perinephric stranding. No right hydronephrosis or right urothelial thickening. There are small hypodense foci within the kidneys which are too small to characterize but likely represent cysts. Stomach and Bowel: Stomach, small bowel loops, and colon are normal in caliber and wall thickness. No pericecal inflammatory changes to suggest appendicitis. There are a few colonic diverticula without acute diverticulitis. Peritoneum: No abnormal intraperitoneal fluid. No free air. Ventral Wall: No hernia. Abdominal Nodes: No retroperitoneal or mesenteric adenopathy by size criteria. Vessels: Aorta and inferior vena cava are normal in size. PELVIS: Pelvic Organs: Unremarkable. Bladder: Unremarkable. Pelvic Nodes: No enlarged lymph nodes. Miscellaneous: No inguinal hernias are seen. Bones: Visualized osseous structures demonstrate no suspicious focal lesions. IMPRESSION: 1. Heterogeneous enhancement of the left kidney is nonspecific but is suggestive of pyelonephritis. No hydronephrosis. No perinephric or intrarenal abscess collections. 2. Mild asymmetric left urothelial thickening and enhancement in the left renal collecting system and proximal left ureter compatible with a urinary tract infection. 3. No evidence of diverticulitis. Dictated by: Suhas Flanagan M.D. on 10/21/2021 at 23:01 Approved by: Suhas Flanagan M.D. on 10/21/2021 at 23:07
--- NOTE | 2021-10-21 22:10 | DI.RAD.S_ITS ---
PROCEDURE: XR CHEST 1V INDICATIONS: sepsis TECHNIQUE: One view of the chest was acquired. COMPARISON: [facility], CR, XR CHEST 2V, 06/06/2021, 16:19. FINDINGS: Surgical changes and devices: None. Lungs and pleura: Lungs are clear. There is hyperinflation of the lungs with flattening of the hemidiaphragms compatible with COPD. No pleural effusions or pneumothorax. Mediastinum: Mediastinal contours appear normal. Heart size is normal. Bones and chest wall: No suspicious bony lesions. Overlying soft tissues appear unremarkable. IMPRESSION: 1. No acute cardiopulmonary disease. 2. Findings compatible with COPD redemonstrated. Dictated by: Suhas Flanagan M.D. on 10/21/2021 at 23:13 Approved by: Suhas Flanagan M.D. on 10/21/2021 at 23:14
[2021-10-21 22:13] LABS: Bacteria Urine Many (>30); Culture Indicated Urine Specimen Cultured; RBC Urine 1-5/HPF (0-5/HPF); WBC Urine 10-30/HPF (0-5/HPF)
[2021-10-21 22:38] VITALS: PULSE 97; RESP 23; O2SAT 98
[2021-10-21 23:02] LABS: COVID19 -Nasal RAPID Negative (Negative)
[2021-10-21 23:14] LABS: Neutrophils Absolute Manual 14863 /uL (3000-5900); RBC Morphology Normal Morphology; Total Cells Counted 100
[2021-10-21 23:42] VITALS: BP 117/44; PULSE 86; RESP 16; TEMP 37.7; O2SAT 97; BMI 27.6
[2021-10-22 01:01] VITALS: O2SAT 97
[2021-10-22 01:30] LABS: Hemoglobin A1C% w Est Avg Glu 5.7 % (4.0-6.0)
[2021-10-22] MEDS: SODIUM CHLORIDE 0.9% 1,000 ML 100 ML IV ×2 (01:42→13:00)
[2021-10-22] MEDS: cefTRIAXone 1,000 MG in SODIUM CHLORIDE 0.9% 100 ML 200 MG IV (01:42)
--- NOTE | 2021-10-22 02:21 | P.HP_ITS ---
History of Present Illness History of Present Illness Date Patient Seen: 10/22/21 Time Patient Seen: 01:30 Chief complaint: Sepsis secondary to acute pyelonephritis Narrative: Amelie Tucker is a 71-year-old female with diabetes type 2, hypertension, hyperlipidemia, developed pain in her lower abdomen 2 nights ago. She got up around 2:00 a.m. in the morning and had excruciating lower pelvic pain particularly worse on the left side. She was shaking and vomited multiple times and apparently this repeated self 4 more times that evening. On Friday morning on the day of admission her pain seemed to be improved. It seemed to be provoked only by taking a deep breath that she would get chart sharp pain. She has had a history of UTIs in the past and usually these are followed by urinary urgency and burning, she states this time this was different. Her daughter took her temperature and told her she had a fever but did not tell her what her temperature was. CT of the abdomen and pelvis ordered by the emergency department indicated ?heterogeneous enhancement of the left kidney, nonspecific but suggestive of pyelonephritis. It also noted that she had left urothelial thickening and enhancement in the left renal collecting system and a proximal left ureter compatible with a UTI. Patient's T-max on admission was 102.7 and currently it is 99.8. Patient does have an elevated white count of 16.7, she is mildly anemic with a hemoglobin and hematocrit of 11.9 and 34.8, platelet count 242, [place] [address], sodium is 131, creatinine 1.24 however does not known if this is her baseline, EGFR of 47, glucose 147, her A1c is 5.7, her liver enzymes were within normal limits, procalcitonin is markedly elevated 8.4, she has wbc's and bacteria in her urine, meeting criteria for urine culture and COVID-19 PCR is negative. Patient History Medical History Diabetes type 2, controlled Essential hypertension Hyperlipidemia Family & Social History Family History Father Kidney failure Mother Alzheimer's dementia Social History: household members spouse Prior Living Arrangements House Safety & Behavioral: Feels Safe in Current Yes Environment Been Physically Hurt or No Threatened By a Person Tobacco & Substance use: Smoking Status Never smoker alcohol intake current Substance Use Type does not use Meds Home Medications and Allergies Home Medications Medication Instructions Recorded Confirmed Type sertraline 100 mg tablet 100 mg PO QDAY #0 04/22/11 10/22/21 History simvastatin 40 mg tablet 40 mg PO QDAY #0 04/22/11 10/22/21 History amlodipine 5 mg tablet 5 mg PO DAILY 10/22/21 10/22/21 History bupropion HCl 300 mg 24 hr tablet, 300 mg PO QAM 10/22/21 10/22/21 History extended release metformin 500 mg tablet,extended 500 mg PO DAILY 10/22/21 10/22/21 History release 24 hr Allergies Allergy/AdvReac Type Severity Reaction Status Date / Time bacitracin Allergy Intermediate OINTMENT Verified 10/21/21 21:10 USED ON EYE AND CAUSED A RASH LOCALIZED neomycin Allergy Intermediate SKIN Verified 10/21/21 21:10 [From Neosporin + Pain HATFIELD AND Relief] BLISTERS polymyxin B Allergy Intermediate SKIN Verified 10/21/21 21:10 [From Neosporin + Pain HATFIELD AND Relief] BLISTERS pramoxine Allergy Intermediate SKIN Verified 10/21/21 21:10 [From Neosporin + Pain HATFIELD AND Relief] BLISTERS Review of Systems Review of Systems ROS: Yes All systems reviewed with the patient and are negative except as otherwise documented Exam Vital Signs (past 8 hours): - 10/21/21 21:10 10/21/21 21:28 10/21/21 21:30 Temperature 102.7 F H Pulse Rate 100 H 93 H 94 H Respiratory Rate 18 Blood Pressure 132/98 H 143/66 H 130/60 Pulse Oximetry 98 96 95 10/21/21 22:00 10/21/21 22:38 10/21/21 23:42 Temperature 99.8 F H Pulse Rate 96 H 97 H 86 Respiratory Rate 22 23 16 Blood Pressure 129/62 117/44 L Pulse Oximetry 97 98 97 10/22/21 01:01 Temperature Pulse Rate Respiratory Rate Blood Pressure Pulse Oximetry 97 Oxygen Delivery Method Room Air Oxygen Flow Rate 0 Narrative Exam Narrative: Gen: Alert, oriented, well-developed 71 y.o. female, flushed HEENT: normocephalic, atraumatic, conjunctiva clear, sclera non-icteric, oral mucosa pink and moist Neck: supple, full ROM, no JVD, trachea is midline Resp: Lungs CTA, non-labored breathing CV: tachy but regular, no murmur or rubs Abd: soft, tender in left lower quadrant, normoactive BTs Skin: no lesions or rashes, dry and intact Neuro: Alert and oriented X 4 w/no focal deficits. Speech clear and coherent. Extremities: moves all 4 extremities, is ambulatory, negative Lucian?s sign Psyche: normal mood and affect. Objective Labs Result Diagrams: 10/21/21 21:25 10/21/21 21:25 Labs: Laboratory Results - last 24 hr 10/21/21 10/21/21 10/21/21 21:20 21:25 21:25 WBC 16.7 H RBC 4.09 Hgb 11.9 L Hct 34.8 L MCV 85.1 MCH 29.1 MCHC 34.2 RDW 13.2 Plt Count 242 Neut % (Auto) Not Reportable Lymph % (Auto) Not Reportable [place] % (Auto) Not Reportable Eos % (Auto) Not Reportable Baso % (Auto) Not Reportable Lymph # (Auto) Not Reportable [place] # (Auto) Not Reportable Baso # (Auto) Not Reportable Total Counted 100 Seg Neutrophils % 86.0 H Band Neutrophils % 3.0 Lymphocytes % (Manual) 6.0 L Monocytes % (Manual) 5.0 Neutrophils # (Manual) 28774 H RBC Morphology Normal morphology Sodium 131 L Potassium 4.2 Chloride 99 Carbon Dioxide 24 BUN 24 H Creatinine 1.24 H Estimated GFR 47 L BUN/Creatinine Ratio 19.4 Glucose 147 H Hemoglobin A1c 5.7 Lactate Calcium 8.6 Total Bilirubin 1.2 AST 23 ALT 15 Alkaline Phosphatase 80 Total Protein 7.0 Albumin 3.8 Globulin 3.2 Albumin/Globulin Ratio 1.2 Lipase 172 Procalcitonin Urine RBC Urine WBC Urine Bacteria Ur Culture Indicated? Micro UA Comment SARS-CoV-2 (PCR) 10/21/21 10/21/21 10/21/21 21:25 21:25 21:41 WBC RBC Hgb Hct MCV MCH MCHC RDW Plt Count Neut % (Auto) Lymph % (Auto) [place] % (Auto) Eos % (Auto) Baso % (Auto) Lymph # (Auto) [place] # (Auto) Baso # (Auto) Total Counted Seg Neutrophils % Band Neutrophils % Lymphocytes % (Manual) Monocytes % (Manual) Neutrophils # (Manual) RBC Morphology Sodium Potassium Chloride Carbon Dioxide BUN Creatinine Estimated GFR BUN/Creatinine Ratio Glucose Hemoglobin A1c Lactate 1.3 Calcium Total Bilirubin AST ALT Alkaline Phosphatase Total Protein Albumin Globulin Albumin/Globulin Ratio Lipase Procalcitonin 8.40 H Urine RBC 1-5/hpf Urine WBC 10-30/hpf H Urine Bacteria Many (>30) H Ur Culture Indicated? Specimen cultured Micro UA Comment * SARS-CoV-2 (PCR) 10/21/21 22:39 WBC RBC Hgb Hct MCV MCH MCHC RDW Plt Count Neut % (Auto) Lymph % (Auto) [place] % (Auto) Eos % (Auto) Baso % (Auto) Lymph # (Auto) [place] # (Auto) Baso # (Auto) Total Counted Seg Neutrophils % Band Neutrophils % Lymphocytes % (Manual) Monocytes % (Manual) Neutrophils # (Manual) RBC Morphology Sodium Potassium Chloride Carbon Dioxide BUN Creatinine Estimated GFR BUN/Creatinine Ratio Glucose Hemoglobin A1c Lactate Calcium Total Bilirubin AST ALT Alkaline Phosphatase Total Protein Albumin Globulin Albumin/Globulin Ratio Lipase Procalcitonin Urine RBC Urine WBC Urine Bacteria Ur Culture Indicated? Micro UA Comment SARS-CoV-2 (PCR) Negative Assessment & Plan Assessment & Plan narrative: Amelie Tucker is admitted for sepsis secondary to acute pylonephritis. 1. Sepsis associated with acute pylonephritis, acute, present on admission * She was given 1 dose of IV Levaquin in the emergency department and will receive IV ceftriaxone 1 g daily starting tonight * IV fluids at 150 mL/hour normal saline * She will be closely monitored tonight for worsening development of sepsis 2. Essential hypertension, chronic and appears to be well controlled * Continue home dose of amlodipine 5 mg p.o. daily 3. Dyslipidemia, chronic * Continue home dose of simvastatin 40 mg p.o. daily 4. Diabetes type 2, well controlled * Metformin is being held currently * Low-dose correctional scale insulin at [facility] VTE Prophylaxis: Wells risk score 0 [X]Enoxaparin 40 mg subQ once daily Bilateral SCDs Patient is admitted to the inpatient service due to the severity of disease, risks of further disease progression and this stay is expected to exceed 2 midnights. FEN: IV fluids: NS at 150 ml/hour, diet: carb controlled, labs: CBC, C/BMP, liver enzymes, Mag, PT/INR Consultants None Dispo: Assume discharge to home Code status: Full Code as discussed with the patient who identifies her , Brandon her surrogate and POA. [X] I have utilized all available immediate resources to obtain, update, or review of the patient's current medications COVID-19 COVID-19 status: Negative Result date/Date tested (Pos, Neg/Pending): 10/22/21 Time Spent With Patient Critical Care time: I spent a total of [] minutes of critical care time on this patient's care today; this time is exclusive of procedural time. Scores Wells' Criteria for PE Clinical signs and symptoms of DVT: No PE is #1 Dx or equally likely: No Heart rate > 100: No Immobilization at least 3 days or surg in previous 4 weeks: No History of PE or DVT: No Hemoptysis: No Malignancy w/Treatment within 6 months or palliative: No Wells' PE Score total: 0 Quality VTE Deep Vein Thrombosis/Pulmonary Embolism Present on Admission: No MIPS - Admit I confirm the patient?s Advance Care Plan is present, Code status is documented, Surrogate decision maker is in patient?s record [If Yes, STOP here]: Yes MIPS - DC The patient has current or prior documentation of left ventricular ejection fraction (LVEF) less than 40%, or moderate or severely depressed left ventricular systolic function.: No
--- NOTE | 2021-10-22 02:42 | PC.NURSE ---
NS bolus order was d/c's at ED. Pt did not come to Acute care unit with saline lock.
[2021-10-22 04:05] VITALS: BP 122/52; PULSE 85; RESP 18; TEMP 37.5; O2SAT 97
[2021-10-22] MEDS: ACETAMINOPHEN 325 MG TABLET 650 MG PO ×3 (04:12→20:30)
[2021-10-22 04:47] LABS: Add Manual Diff / Slide Review NO; Basophils Absolute Auto 0 /uL (0-100); Basophils Percent Auto 0.3 % (0-2); Eosinophils Absolute Auto 0 /uL (0-450); Hematocrit 32.8 % (36-46); Hemoglobin 11.4 g/dL (12.0-16.0); Lymphocytes Absolute Auto 600 /uL (1100-4500); Lymphocytes Percent Auto 4.9 % (25-40); Mean Corpuscular HGB Conc 34.7 % (30-36); Mean Corpuscular Hemoglobin 29.5 PG (26-34); Monocytes Absolute Auto 1200 /uL (0-900); Monocytes Percent Auto 9.5 % (3-14); Neutrophils Absolute Auto 10800 /uL (1500-7000); Neutrophils Percent Auto 85.3 % (50-75); Platelet Count 183 X10^3/uL (150-400); Red Blood Cell Count 3.85 X10^6/uL (4.0-5.2); Red Cell Distribution Width 13.1 % (11.6-14.8); White Blood Cell Count 12.6 X10^3/uL (4.5-11.0)
[2021-10-22 04:55] LABS: Alanine Aminotransferase 14 IU/L (<35); Albumin 3.3 g/dL (3.5-5.0); Albumin Globulin Ratio 1.1 (1.0-2.8); Alkaline Phosphatase 60 U/L (38-126); Aspartate Aminotransferase 19 IU/L (14-36); BUN Creatinine Ratio 16.3 (6-22); Bilirubin Total 0.8 mg/dL (0.2-1.3); Bilirubin Unconjugated 0.8 mg/dL (0.0-1.1); Blood Urea Nitrogen 20 mg/dL (7-17); Calcium 7.8 mg/dL (8.4-10.2); Carbon Dioxide 25 mmol/L (22-32); Chloride 101 mmol/L (98-107); Estimated Glomerular Filt Rate 48 mL/min (>60); Glucose 149 mg/dL (80-110); HEMOLYSIS < 15 (0-50); Magnesium 1.9 mg/dL (1.6-2.3); Potassium 4.4 mmol/L (3.4-5.1); Sodium 134 mmol/L (137-145); Total Protein 6.3 g/dL (6.3-8.2)
[2021-10-22] MEDS: AMLODIPINE 5 MG TABLET PO (08:32)
[2021-10-22] MEDS: buPROPion XL 150 MG TAB 300 MG PO (08:32)
[2021-10-22] MEDS: SERTRALINE 50 MG TABLET 100 MG PO (08:32)
[2021-10-22] MEDS: ATORVASTATIN 20 MG TABLET PO (08:32)
[2021-10-22] MEDS: ENOXAPARIN 40 MG/0.4 ML SYRINGE SUBCUT (08:32)
--- NOTE | 2021-10-22 09:16 | CM.DANOTE ---
DCP: Payor: Medicare PCP: Aysha Fuller MD Pt is a 71 y/o F who is admitted with sepsis secondary to acute pyelonephritis and a with fevers. DCP met with pt this morning bedside. Pt was sitting up in bed and alert and oriented. Pt states that she lives in [facility] with her Spouse Brandon. They are both retired and still driving. DCP inquired about past SNF and Home Health and pt denied ever using any. Pt states she is feeling much better than yesterday. Pt denies any resources at this time. Whiteboard updated and instructed to call if any further questions. P: DCP to continue to follow. Anticipate discharge home with spouse POV. Belinda Garcia RN/LILLIAN Discharge Planning/Care Management Advanced directive, confirm from FAMILY Start: 10/21/21 23:51 Freq: Q24H Status: Active Protocol: Document 10/21/21 23:51 MW (Rec: 10/21/21 23:53 MW [id number]) Advance Directive, confirm on record Time 23:53 Person contacted pt Copy received No CM Discharge Assessment Start: 10/22/21 09:14 Freq: Status: Active Protocol: Document 10/22/21 09:14 AJ (Rec: 10/22/21 09:16 AJ [id number]) Discharge Planning Assessment Assigned End User Support Specialist Belinda Garcia RN/LILLIAN Advance Directives? Yes Advance Directives on File No History Provided By Patient Has Patient been admitted in last 30 No days? Prior Living Arrangements House Household Members spouse Type of transporation used prior to Drives own vehicle admit Independent with ADL's Yes Is patient alert and oriented? Yes Caregiver for Another No Barriers to Discharge No Discharge Plan Home Transportation Arrangement Spouse POV Referrals Initiated None needed Whiteboard Updated in Patient Room with Yes name and ext. # of End User Support Specialist Review Status In Process Please Provide Date Initial DC 10/22/21 Assessment Was Performed Next Review Type Continued Stay Review
[2021-10-22 11:45] LABS: Acinetobacter baumannii Not Detected (Not Detect); Candida albicans Not Detected (Not Detect); Candida glabrata Not Detected (Not Detect); Candida krusei Not Detected (Not Detect); Candida parapsilosis Not Detected (Not Detect); Candida tropicalis Not Detected (Not Detect); E. coli Detected (Not Detect); Enterobacter cloacae complex Not Detected (Not Detect); Enterobacteriaceae species Detected (Not Detect); Enterococcus species Not Detected (Not Detect); Haemophilus influenzae Not Detected (Not Detect); KPC (carbapenem-resist gene) Not Detected (Not Detect); Listeria monocytogenes Not Detected (Not Detect); Neisseria meningitidis Not Detected (Not Detect); Proteus species Not Detected (Not Detect); Pseudomonas aeruginosa Not Detected (Not Detect); Serratia marcescens Not Detected (Not Detect); Staphylococcus species Not Detected (Not Detect); Streptococcus agalactiae (Gr B Not Detected (Not Detect); Streptococcus pneumonia Not Detected (Not Detect); Streptococcus pyogenes (Gr A) Not Detected (Not Detect); Streptococcus species Not Detected (Not Detect)
[2021-10-22 12:00] VITALS: BP 126/58; PULSE 80; RESP 17; TEMP 37.2; O2SAT 95
[2021-10-22] MEDS: INSULIN LISPRO 100 UNIT/ML 3ML VIAL SUBCUT (12:08)
[2021-10-22 16:49] VITALS: BP 114/53; PULSE 78; RESP 16; TEMP 37.6; O2SAT 95
[2021-10-22 19:00] VITALS: O2SAT 96
[2021-10-22 20:09] VITALS: BP 131/55; PULSE 87; RESP 18; TEMP 37.7; O2SAT 93
[2021-10-23] VITALS (11 sets, daily range): BP systolic 110–125; BP diastolic 49–55; PULSE 63–88; RESP 18; TEMP 36.6–39.4; O2SAT 92–97
[2021-10-23] MEDS: cefTRIAXone 1,000 MG in SODIUM CHLORIDE 0.9% 100 ML 200 MG IV (00:54)
[2021-10-23] MEDS: ACETAMINOPHEN 325 MG TABLET 650 MG PO (04:30)
[2021-10-23 05:09] LABS: Add Manual Diff / Slide Review NO; Basophils Absolute Auto 0 /uL (0-100); Basophils Percent Auto 0.2 % (0-2); Eosinophils Absolute Auto 0 /uL (0-450); Eosinophils Percent Auto 0.1 % (2-4); Hematocrit 30.5 % (36-46); Hemoglobin 10.8 g/dL (12.0-16.0); Lymphocytes Absolute Auto 400 /uL (1100-4500); Lymphocytes Percent Auto 4.3 % (25-40); Mean Corpuscular HGB Conc 35.3 % (30-36); Mean Corpuscular Hemoglobin 30.2 PG (26-34); Mean Corpuscular Volume 85.4 fL (80-100); Monocytes Absolute Auto 900 /uL (0-900); Monocytes Percent Auto 9.3 % (3-14); Neutrophils Absolute Auto 8600 /uL (1500-7000); Neutrophils Percent Auto 86.1 % (50-75); Platelet Count 179 X10^3/uL (150-400); Red Blood Cell Count 3.57 X10^6/uL (4.0-5.2)
[2021-10-23 05:48] LABS: Alanine Aminotransferase 14 IU/L (<35); Albumin 3.2 g/dL (3.5-5.0); Albumin Globulin Ratio 1.1 (1.0-2.8); Alkaline Phosphatase 67 U/L (38-126); Aspartate Aminotransferase 22 IU/L (14-36); BUN Creatinine Ratio 15.2 (6-22); Bilirubin Total 0.7 mg/dL (0.2-1.3); Bilirubin Unconjugated 0.5 mg/dL (0.0-1.1); Blood Urea Nitrogen 16 mg/dL (7-17); Calcium 7.9 mg/dL (8.4-10.2); Carbon Dioxide 23 mmol/L (22-32); Chloride 106 mmol/L (98-107); Estimated Glomerular Filt Rate 58 mL/min (>60); Globulin 2.8 g/dL (1.7-4.1); Glucose 126 mg/dL (80-110); HEMOLYSIS < 15 (0-50); Magnesium 2.1 mg/dL (1.6-2.3); Potassium 3.8 mmol/L (3.4-5.1); Sodium 136 mmol/L (137-145)
[2021-10-23] MEDS: ENOXAPARIN 40 MG/0.4 ML SYRINGE SUBCUT (08:16)
[2021-10-23] MEDS: AMLODIPINE 5 MG TABLET PO (08:16)
[2021-10-23] MEDS: ATORVASTATIN 20 MG TABLET PO (08:16)
[2021-10-23] MEDS: SERTRALINE 50 MG TABLET 100 MG PO (08:16)
[2021-10-23] MEDS: buPROPion XL 150 MG TAB 300 MG PO (08:16)
--- NOTE | 2021-10-23 18:28 | PM.PN.1 ---
Subjective Subjective Date Patient Seen: 10/23/21 Interval history: THIS IS A PLEASANT 71-YEAR-OLD FEMALE BEING TREATED FOR ACUTE PYELONEPHRITIS SEPSIS NOTED ON ARRIVAL WITH SOURCE SUSPECTED TO BE DUE TO URINARY TRACT AND NOW URINE GROWING E COLI TODAY PATIENT REPORTED GENERALIZED WEAKNESS FEELING OF [place] REPORTED WELL NO FEVER OR CHILLS NO CHEST PAIN NO OTHER SIGNIFICANT ISSUES REPORTED OVERNIGHT BY NURSING SPOKE TO PATIENT'S AT BEDSIDE TODAY Exam Vital Signs (past 8 hours): - 10/23/21 13:35 Temperature 99.2 F Pulse Rate 74 Respiratory Rate 18 Blood Pressure 114/51 L Pulse Oximetry 95 Oxygen Delivery Method Room Air Oxygen Flow Rate 0 Narrative Exam Narrative: NO ACUTE DISTRESS. PATIENT IS ALERT ORIENTED X3. VITAL SIGNS STABLE HEAD ATRAUMATIC NORMOCEPHALIC NECK : SUPPLE WITHOUT ADENOPATHY NO CAROTID BRUITS EYE: EOMI, PERRLA, NORMAL CONJUNCTIVA; NO JAUNDICE CHEST: REGULAR RATE. NO RUBS. PMI IS NON DISPLACED. NO MURMURS; NORMAL S1-S2 PULMONARY: DECREASED BS OVER THE BASES. MILD BIBASILAR CRACKLES NOTED; NO INCREASED DULLNESS TO PERCUSSION ABDOMEN: SOFT. NONTENDER. NONDISTENDED. BOWEL SOUNDS ARE PRESENT IN ALL 4 QUADRANTS. NO MASS. EXTREMITIES: NO EDEMA.. NO CYANOSIS CLUBBING NOTED. NEURO: CRANIAL NERVES 2-12 GROSSLY INTACT. NO FOCAL NEUROLOGICAL DEFICIT NOTED. MSK: NORMAL RANGE OF MOTION FOR AGE. NO JOINT EFFUSION. SKIN: NORMAL FOR ETHNICITY; NO ECCHYMOSIS. NO LESION. GOOD TURGOR.; NO RASHES : NORMAL EXTERNAL GENITALIA. PSYCH : APPROPRIATE MOOD AND AFFECT. ALERT AWAKE ORIENTED X3 Objective Labs Result Diagrams: 10/23/21 04:40 10/23/21 04:40 Labs: Laboratory Results - last 24 hr 10/23/21 10/23/21 04:40 04:40 WBC 10.0 RBC 3.57 L Hgb 10.8 L Hct 30.5 L MCV 85.4 MCH 30.2 MCHC 35.3 RDW 13.0 Plt Count 179 Neut % (Auto) 86.1 H Lymph % (Auto) 4.[address] [place] % (Auto) 9.3 Eos % (Auto) 0.1 L Baso % (Auto) 0.2 Neut # (Auto) 8600 H Lymph # (Auto) [address] [place] [place] # (Auto) 900 Eos # (Auto) 0 Baso # (Auto) 0 Sodium 136 L Potassium 3.8 Chloride 106 Carbon Dioxide 23 BUN 16 Creatinine 1.05 H Estimated GFR 58 L BUN/Creatinine Ratio 15.2 Glucose 126 H Calcium 7.9 L Magnesium 2.1 Total Bilirubin 0.7 Conjugated Bilirubin 0.0 Unconjugated Bilirubin 0.5 AST 22 ALT 14 Alkaline Phosphatase 67 Total Protein 6.0 L Albumin 3.2 L Globulin 2.8 Albumin/Globulin Ratio 1.1 PFSH Medical History Diabetes type 2, controlled Essential hypertension Hyperlipidemia Family History Father Kidney failure Mother Alzheimer's dementia Social History household members: spouse Smoking Status: Never smoker alcohol intake: current Assessment & Plan Assessment & Plan narrative: IMPRESSION SEPSIS. PRESENT ON ARRIVAL. SOURCE IS LIKELY URINARY TRACT URINARY TRACT INFECTION / PYELONEPHRITIS. E COLI SUSPECTED.ON ROCEPHIN LEUKOCYTOSIS. RESOLVED HYPERTENSION PER HISTORY HYPERLIPIDEMIA PER HISTORY DEPRESSION / ANXIETY PER HISTORY TYPE 2 DIABETES PER HISTORY PLAN INITIAL CULTURE GROWING E COLI WILL CONTINUE TO FOLLOW CLOSELY. SENSITIVITY REPORT IS PENDING CONTINUE ROCEPHIN FOR NOW SWITCH TO ORAL TABLETS IN THE MORNING LIKELY CONTINUE TO MONITOR CLOSELY DAILY LAB TO FOLLOW WILL CONSULT PHYSICAL THERAPY TO EVALUATE AND TREAT INDICATED FALL PRECAUTION TO BE MAINTAINED AT ALL TIMES ANTI ASPIRATION PRECAUTIONS WELL INCENTIVE SPIROMETER TO BE USED WHILE AWAKE ADDITIONAL MANAGEMENT PER CLINICAL COURSE POSSIBLE DISCHARGE IN 24-48 HOURS TO HOME WITH HOME HEALTH Time Spent With Patient Critical Care time: I spent a total of [] minutes of critical care time on this patient's care today; this time is exclusive of procedural time. Quality VTE Deep Vein Thrombosis/Pulmonary Embolism Present on Admission: No
[2021-10-24] VITALS: BP 126/57; PULSE 77; RESP 18; TEMP 37.6; O2SAT 93
[2021-10-24 01:00] VITALS: O2SAT 93
[2021-10-24] MEDS: cefTRIAXone 1,000 MG in SODIUM CHLORIDE 0.9% 100 ML 200 MG IV (01:26)
[2021-10-24 04:00] VITALS: BP 115/56; PULSE 68; RESP 18; TEMP 37.4; O2SAT 95
[2021-10-24 04:40] LABS: Add Manual Diff / Slide Review NO; Basophils Absolute Auto 0 /uL (0-100); Basophils Percent Auto 0.3 % (0-2); Eosinophils Absolute Auto 100 /uL (0-450); Eosinophils Percent Auto 0.8 % (2-4); Hematocrit 27.4 % (36-46); Hemoglobin 9.5 g/dL (12.0-16.0); Lymphocytes Absolute Auto 1200 /uL (1100-4500); Lymphocytes Percent Auto 14.8 % (25-40); Mean Corpuscular HGB Conc 34.8 % (30-36); Mean Corpuscular Hemoglobin 29.5 PG (26-34); Mean Corpuscular Volume 84.7 fL (80-100); Monocytes Absolute Auto 1000 /uL (0-900); Monocytes Percent Auto 12.1 % (3-14); Neutrophils Absolute Auto 5700 /uL (1500-7000); Platelet Count 177 X10^3/uL (150-400); Red Blood Cell Count 3.23 X10^6/uL (4.0-5.2); Red Cell Distribution Width 13.1 % (11.6-14.8); White Blood Cell Count 7.9 X10^3/uL (4.5-11.0)
[2021-10-24 04:42] LABS: Alanine Aminotransferase 15 IU/L (<35); Alkaline Phosphatase 63 U/L (38-126); Aspartate Aminotransferase 21 IU/L (14-36); BUN Creatinine Ratio 15.5 (6-22); Bilirubin Total 0.5 mg/dL (0.2-1.3); Blood Urea Nitrogen 16 mg/dL (7-17); Carbon Dioxide 24 mmol/L (22-32); Chloride 106 mmol/L (98-107); Estimated Glomerular Filt Rate 59 mL/min (>60); Glucose 121 mg/dL (80-110); HEMOLYSIS < 15 (0-50); Magnesium 2.1 mg/dL (1.6-2.3); Phosphorous 2.4 mg/dL (2.8-4.1); Potassium 3.7 mmol/L (3.4-5.1); Sodium 135 mmol/L (137-145)
--- NOTE | 2021-10-24 07:59 | PT.IIE ---
Current Diagnoses Acute pyelonephritis (10/21/21) Medical History (Last Reviewed 10/22/21 @ 02:24 by ISABELLA Son) Diabetes type 2, controlled Essential hypertension Hyperlipidemia Physical Therapy Inpatient Evaluation/Re-Eval M1 PT/OT-IP Prior Functional Status Start: 10/24/21 07:50 Freq: NEEDED Status: Active Protocol: Document 10/24/21 07:51 [facility] (Rec: 10/24/21 07:59 [facility] [id number]) Medical Review Prior Functional Status Medical History Reviewed Yes Diet/Fluid Consistency Regular Communication WNL Mobility and Gait indep w/o AD, used to go to exercise classes but hasn't recently Activities of Daily Living and IADL's indep, helps w/cooking and cleanng at home Social History Household Members spouse Living Arrangements House Number of Floors (Floors) One Floor Number of Stairs To Enter/Railing? 0 Home Environment High Toilet,Walk in Shower Employment Status Retired M2 PT-IP Current Condition Start: 10/24/21 07:50 Freq: NEEDED Status: Active Protocol: Document 10/24/21 07:51 [facility] (Rec: 10/24/21 07:59 [facility] [id number]) Physical Therapy Current Condition Current Condition Evaluation Date 10/24/21 Treatment Diagnosis sepsis, weakness M3 PT-IP Subjective Start: 10/24/21 07:50 Freq: NEEDED Status: Active Protocol: Document 10/24/21 07:51 [facility] (Rec: 10/24/21 07:59 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 Has no concerns re: returning home M4 PT-IP Mobility and Gait Start: 10/24/21 07:50 Freq: NEEDED Status: Active Protocol: Document 10/24/21 07:51 [facility] (Rec: 10/24/21 07:59 [facility] [id number]) PT-Bed Mobility Assessment Rolling Level of Assist Independent Supine to Sit Supine to Sit Independent Scooting Scooting to Edge of Bed Independent PT-Transfer Assessment Sit to and From Stand Sit to and from Stand Independent,Use of Upper Extremities Equipment Transfer Assistive Device Gait Belt Comments Mobility Comments supine to sit indep and without difficulty, sit to stand indep w/o difficulty. Pt performed balance tests in room w/PT and then washed up indep at sink. She amb in gorman SBA w/o any signs of LOB. She was able to change speeds, turn head horizontally and vertically w/o LOB and was able turn corners and talk to PT during ambulation. Pt left with call light in reach in room. Informe dof indep and call if needs anythign. Gait Assessment Gait Gait Assistance Required: Standby Assistance Distance (Feet) 300 Able to Maintain Weight Bearing Status Yes During Gait Assistive Devices Assistive Device Gait Belt Gait Deviations General Gait Pattern Within Normal Limits Comments Gait Comments see above Stair Climbing Assessment Comments Stair Climbing Comments does not have stairs or need to access stairs PT-Balance Assessment Sitting Balance and Reactions Static Sitting Balance Ability Normal Dynamic Sitting Balance Ability Normal Standing Balance and Reactions Static Standing Balance Ability Normal Dynamic Standing Balance Ability Good Device Used none Balance Tests Single Limb Standing 4 sec L , 2 sec R Perez Balance Test Score 52/56 Query Text:Score Functional Assessments Functional Tests Tinetti Balance and Gait Assessment M5 PT-IP Objective Assessments Start: 10/24/21 07:50 Freq: NEEDED Status: Active Protocol: Document 10/24/21 07:51 [facility] (Rec: 10/24/21 07:59 [facility] [id number]) Orientation Orientation/Cognition Level of Alertness Alert Language Function Ability No Deficits Noted Safety Awareness Understands Safety Issues Memory Description No Deficits Noted Gross Range of Motion Lower Extremity ROM Assessment Within Functional Limits Strength Lower Extremity Strength Assessment Within Functional Limits M6 PT-IP Treatment Start: 10/24/21 07:50 Freq: NEEDED Status: Active Protocol: Document 10/24/21 07:51 [facility] (Rec: 10/24/21 07:59 [facility] [id number]) Physical Therapy Treatment Education Education Provided Safety M7 PT-IP Assessment and Plan Start: 10/24/21 07:50 Freq: NEEDED Status: Active Protocol: Document 10/24/21 07:51 [facility] (Rec: 10/24/21 07:59 [facility] [id number]) PT Summary Assessment and Plan Potential Rehabilitation Potential Excellent Status of Condition at Evaluation Stable Summary Assessment Summary Pt presents w/sepsis diagnosis w/pt noting she felt better today overall. She did well with all mobility and did not require assist or show signs of imbalance. She did well on tinnetti and PEREZ showing low risk for falls. Part of DGI were performed and pt did well with those tasks without LOB. Pt is DC from PT at this time d/t back to baseline. Encouraged pt to resume exercises classes when cleared by MD and to consider PT if she feels like she is weaker than usual upon return home Frequency of Treatment Frequency Of Treatment Discharge Weight Bearing Status Weight Bearing Status Full Weight Bearing Recommendations To Nursing Amount of Assist Needed Independent Discharge Recommendations PT Discharge Recommendations Home Transportation Needs at Discharge Private Vehicle
[2021-10-24 08:30] VITALS: BP 118/56; PULSE 69; RESP 18; TEMP 36.9; O2SAT 94
--- NOTE | 2021-10-24 08:40 | OT.IPNOTE ---
Went to talk to pt regarding OT eval. Pt states has been completely independent in the room and feel OT not needed. PT already saw pt and discharged her due to completely independent for mobility needs. Therefore discharge OT eval orders.
[2021-10-24] MEDS: ENOXAPARIN 40 MG/0.4 ML SYRINGE SUBCUT (08:43)
[2021-10-24] MEDS: INSULIN LISPRO 100 UNIT/ML 3ML VIAL SUBCUT (08:43)
[2021-10-24] MEDS: buPROPion XL 150 MG TAB 300 MG PO (08:43)
[2021-10-24] MEDS: SERTRALINE 50 MG TABLET 100 MG PO (08:43)
[2021-10-24] MEDS: ATORVASTATIN 20 MG TABLET PO (08:43)
[2021-10-24] MEDS: AMLODIPINE 5 MG TABLET PO (08:43)
[2021-10-24 08:50] VITALS: O2SAT 94
[2021-10-24 09:20] VITALS: PULSE 79; RESP 16; O2SAT 94
--- NOTE | 2021-10-24 12:12 | P.DS_ITS ---
History of Present Illness History of Present Illness Chief complaint: Sepsis secondary to acute pyelonephritis Narrative: History of Present Illness History of Present Illness Date Patient Seen: 10/22/21 Time Patient Seen: 01:30 Chief complaint: Sepsis secondary to acute pyelonephritis Narrative: Amelie Tucker is a 71-year-old female with diabetes type 2, hypertension, hyperlipidemia, developed pain in her lower abdomen 2 nights ago.? She got up around 2:00 a.m. in the morning and had excruciating lower pelvic pain particularly worse on the left side.? She was shaking and vomited multiple times and apparently this repeated self 4 more times that evening.? On Friday morning on the day of admission her pain seemed to be improved.? It seemed to be provoked only by taking a deep breath that she would get chart sharp pain.? She has had a history of UTIs in the past and usually these are followed by urinary urgency and burning, she states this time this was different.? Her daughter took her temperature and told her she had a fever but did not tell her what her temperature was. CT of the abdomen and pelvis ordered by the emergency department indicated ?heterogeneous enhancement of the left kidney, nonspecific but suggestive of pyelonephritis.? It also noted that she had left urothelial thickening and enhancement in the left renal collecting system and a proximal left ureter compatible with a UTI.? Patient's T-max on admission was 102.7 and currently it is 99.8.? Patient does have an elevated white count of 16.7, she is mildly anemic with a hemoglobin and hematocrit of 11.9 and 34.8, platelet count 242, [place] [address], sodium is 131, creatinine 1.24 however does not known if this is her baseline, EGFR of 47, glucose 147, her A1c is 5.7, her liver enzymes were within normal limits, procalcitonin is markedly elevated 8.4, she has wbc's and bacteria in her urine, meeting criteria for urine culture and COVID-19 PCR is negative. Discharge Providers Provider Date of admission: 10/21/21 23:18 Discharge Date: 10/24/21 Primary care physician: Aysha Fuller PA-C Consults: 10/23/21 11:47 Consult to Physical Therapy Evaluate & Treat Comment: Physician Instructions: Evaluate and Treat 10/23/21 18:33 Consult to Occupational Therapy Evaluate & Treat Comment: Physician Instructions: Evaluate and treat Consult to Physical Therapy Evaluate & Treat Comment: Physician Instructions: Evaluate and Treat 10/24/21 08:00 Consult to Physical Therapy Evaluate & Treat Comment: Physician Instructions: Evaluate and Treat Discharge provider: Sobia Caceres DO Summary Hospital Course Discharge Diagnosis: SEPSIS. PRESENT ON ARRIVAL.? SOURCE IS LIKELY? URINARY TRACT ?URINARY TRACT INFECTION / PYELONEPHRITIS.? E COLI ?LEUKOCYTOSIS.? RESOLVED ?HYPERTENSION PER HISTORY ?HYPERLIPIDEMIA PER HISTORY ?DEPRESSION / ANXIETY PER HISTORY ? TYPE 2 DIABETES PER HISTORY Hospital Course: THIS IS A VERY PLEASANT 71-YEAR-OLD FEMALE ADMITTED TO THE HOSPITAL WITH REPORTED WEAKNESS. THE WEAKNESS WAS DESCRIBED BEING NONFOCAL AND GENERALIZED IN NATURE. THIS WAS LIKELY DUE TO ONGOING INFECTIOUS PROCESS. PATIENT WAS TREATED FOR URINARY TRACT INFECTION HER URINE IS AT THIS TIME GROWING E COLI WHICH APPEARED TO BE PANSENSITIVE. PATIENT WILL BE DISCHARGED ON OMNICEF. IS INSTRUCTED TO EAT PLENTY OF YOGURT WHILE ON ANTIBIOTICS. PATIENT WILL NEED TO FOLLOW-UP FOR PRIMARY CARE PHYSICIAN WITHIN 10-14 DAYS IF NEEDED. ACTIVITIES WILL BE TOLERATED. REGULAR DIET RECOMMENDED. Status at Discharge Cognitive/behavioral status at discharge: oriented Functional status at discharge: independent ambulation Overall status at discharge: patient is back to baseline Time Spent with Patient Time spent: Greater than 30 minutes Exam Vital Signs (past 8 hours): - 10/24/21 08:30 10/24/21 09:20 Temperature 98.4 F Pulse Rate 69 79 Respiratory Rate 18 16 Blood Pressure 118/56 L Pulse Oximetry 94 94 Oxygen Delivery Method Room Air Oxygen Flow Rate 0 Narrative Exam Narrative: NO ACUTE DISTRESS. PATIENT IS ALERT ORIENTED X3. VITAL SIGNS STABLE HEAD ATRAUMATIC NORMOCEPHALIC NECK : SUPPLE WITHOUT ADENOPATHY NO CAROTID BRUITS EYE: EOMI, PERRLA, NORMAL CONJUNCTIVA; NO JAUNDICE CHEST: REGULAR RATE. NO RUBS. PMI IS NON DISPLACED. NO MURMURS; NORMAL S1- S2 PULMONARY: DECREASED BS OVER THE BASES. MILD BIBASILAR CRACKLES NOTED; NO INCREASED DULLNESS TO PERCUSSION ABDOMEN: SOFT. NONTENDER. NONDISTENDED. BOWEL SOUNDS ARE PRESENT IN ALL 4 QUADRANTS. NO MASS. EXTREMITIES: NO EDEMA.. NO CYANOSIS CLUBBING NOTED. NEURO: CRANIAL NERVES 2-12 GROSSLY INTACT. NO FOCAL NEUROLOGICAL DEFICIT NOTED. MSK: NORMAL RANGE OF MOTION FOR AGE. NO JOINT EFFUSION. SKIN: NORMAL FOR ETHNICITY; NO ECCHYMOSIS. NO LESION. GOOD TURGOR.; NO RASHES : NORMAL EXTERNAL GENITALIA. PSYCH : APPROPRIATE MOOD AND AFFECT. ALERT AWAKE ORIENTED X3 Objective Labs Result Diagrams: 10/24/21 04:05 10/24/21 04:05 Labs: Laboratory Results - last 24 hr 10/24/21 10/24/21 04:05 04:05 WBC 7.9 RBC 3.23 L Hgb 9.5 L Hct 27.4 L MCV 84.7 MCH 29.5 MCHC 34.8 RDW 13.1 Plt Count 177 Neut % (Auto) 72.0 Lymph % (Auto) 14.8 L [place] % (Auto) 12.1 Eos % (Auto) 0.8 L Baso % (Auto) 0.3 Neut # (Auto) 5700 Lymph # (Auto) 1200 [place] # (Auto) 1000 H Eos # (Auto) 100 Baso # (Auto) 0 Sodium 135 L Potassium 3.7 Chloride 106 Carbon Dioxide 24 BUN 16 Creatinine 1.03 Estimated GFR 59 L BUN/Creatinine Ratio 15.5 Glucose 121 H Calcium 8.0 L Phosphorus 2.4 L Magnesium 2.1 Total Bilirubin 0.5 AST 21 ALT 15 Alkaline Phosphatase 63 Total Protein 6.0 L Albumin 3.0 L Globulin 3.0 Albumin/Globulin Ratio 1.0 PFSH Medical History Diabetes type 2, controlled Essential hypertension Hyperlipidemia Family History Father Kidney failure Mother Alzheimer's dementia Social History household members: spouse Smoking Status: Never smoker alcohol intake: current Discharge Plan Discharge Plan Patient Disposition: Home Discharge orders & Medications Prescriptions: New cefdinir 300 mg capsule 300 mg PO Q12H 7 Days Qty: 14 0RF Acidophilus Capsule 2,000 mmu cells PO BID Qty: 30 0RF Continued simvastatin 40 MG tablet 40 mg PO QDAY Qty: 0 0RF sertraline 100 MG tablet 100 mg PO QDAY Qty: 0 0RF amlodipine 5 mg Tablet 5 mg PO DAILY 0RF metformin 500 mg Tablet Extended Release 24 Hr 500 mg PO DAILY 0RF bupropion HCl 300 mg Tablet Extended Release 24 Hr 300 mg PO QAM 0RF Follow up/Referrals: Aysha Fuller PA-C [Primary Care Provider] - Diet/Activity/Treatments Diet: Regular Activity: TOLERATED Discharge Data Primary Care Provider: Aysha Fuller Quality VTE Deep Vein Thrombosis/Pulmonary Embolism Present on Admission: No
[2021-10-24] MEDS: SODIUM,POTASSIUM PHOSPHATES PACKET 2 EACH PO (12:20)
--- NOTE | 2021-10-24 15:39 | CM.DPC ---
DCP: Per MD, pt medically stable for discharge. No needs identified upon discharge. Pt discharged home via POV. Belinda Garcia RN/DCP
== END 2021-10-24 13:30 | disposition home or self-care (01) | DRG 872 ==
LOC: ED 23:17 → AC 23:19
PROVIDERS: Hospitalist; Admitting Provider Nurse Practitioner Family; Emergency Provider Emergency Medicine; PCP Student in an Organized Health Care Education/Training Program; Referring Provider Nurse Practitioner Family; Visit Provider Nurse Practitioner Family
DX: A41.9 Sepsis, unspecified organism (principal); N10 Acute pyelonephritis; E78.5 Hyperlipidemia, unspecified; E11.9 Type 2 diabetes mellitus without complications; B96.20 Unspecified Escherichia coli [E. coli] as the cause of diseases classified elsewhere; F32.A Depression, unspecified; F41.9 Anxiety disorder, unspecified; Z20.822 Contact with and (suspected) exposure to COVID-19; Z79.84 Long term (current) use of oral hypoglycemic drugs
CPT/HCPCS: 36415; 71045; 74177; 80048; 80053; 80076; 81003; 81015; 82962; 83036; 83605; 83690; 83735; 84100; 84145; 85007; 85025; 87040; 87077; 87086; 87150; 87186; 87635; 93005; 94760; 96365; 96366; 96375; 97161; 99284; C9803; J0696; J1650; J1815; J1956; J2405

== ENCOUNTER 2021-11-10 14:55 | Emergency (ER) | payer MEDICARE, OTHER, SELFPAY ==
[2021-11-10] VITALS (8 sets, daily range): BP systolic 130–181; BP diastolic 63–74; PULSE 70–83; RESP 18; TEMP 36.8; O2SAT 97–98; BMI 26.5
[2021-11-10 15:18] LABS: Appearance Urine UA CLEAR; Bilirubin Urine UA NEGATIVE (NEGATIVE); Color Urine UA YELLOW; Glucose Urine UA NEGATIVE (Negative); Ketones Urine UA NEGATIVE (NEGATIVE); Leukocyte Esterase Urine UA TRACE (NEGATIVE); Nitrite Urine UA NEGATIVE (Negative); Occult Blood Urine UA TRACE-INTACT (Negative); Protein Urine UA NEGATIVE (Negative); Specific Gravity Urine UA <=1.005 (1.000-1.035); Urobilinogen Urine UA 0.2 E.U./dL (0.2)
[2021-11-10 15:24] LABS: Bacteria Urine Occasional (0-1); Culture Indicated Urine Specimen Cultured; RBC Urine 0-1/HPF (0-5/HPF); Renal Epithelial Cells Urine 0-1/HPF (0-1/HPF); Squamous Epithelial Cell Urine 1-5 /HPF (0-5/HPF); WBC Urine 1-5/HPF (0-5/HPF)
--- NOTE | 2021-11-10 15:42 | DI.CT.S_ITS ---
PROCEDURE: CT KIDNEY URETER BLADDER (KUB) INDICATIONS: left flank pain TECHNIQUE: Axial sections were acquired from the lung bases to the pubic symphysis. Coronal and sagittal reformats were performed. For radiation dose reduction, the following was used: automated exposure control, adjustment of mA and/or kV according to patient size. COMPARISON: None. FINDINGS: Image quality: Excellent. Lung bases: Unremarkable. A small hiatal hernia is incidentally noted. Heart: No significant findings. URINARY: Right Kidney: No stones or hydronephrosis. Right Ureter: No hydroureter. Left Kidney: No stones or hydronephrosis. The previously seen left-sided perinephric fat stranding has resolved. Left Ureter: No hydroureter. Bladder: Normal wall thickness. No stones. ABDOMEN: Liver: Unremarkable. Gallbladder: Unremarkable. Biliary ducts: Unremarkable. Pancreas: Unremarkable. Spleen: Unremarkable. Adrenal Glands: Unremarkable. Stomach and Bowel: Stomach, small bowel loops, and colon are unremarkable. There is a moderate amount of stool seen within the colon. Peritoneum: No abnormal intraperitoneal fluid. No free air. Ventral Wall: A tree periumbilical hernia is seen, containing fat. Abdominal Nodes: No enlarged retroperitoneal or mesenteric lymph nodes. Vessels: Aorta and inferior vena cava are normal in size. PELVIS: Pelvic Organs: The uterus appears normal for age. No adnexal masses are seen. Pelvic Nodes: Unremarkable. Miscellaneous: No inguinal hernias are seen. Pelvic phleboliths are incidentally noted. Bones: Mild levoconvex scoliotic curvature is noted. Moderate lumbar spine degenerative changes are seen. Milder degenerative changes are seen elsewhere. IMPRESSION: Negative for kidney stones or obstructive uropathy. Resolution of the previously seen left-sided perinephric fat stranding. There is a moderate amount of stool seen within the colon. Please correlate with an underlying history of constipation. Incidental note is made of: Small hiatal hernia Trace fat containing periumbilical hernia Levoconvex scoliotic curvature Moderate lumbar spine degenerative change Dictated by: Reji Lopez M.D. on 11/10/2021 at 15:21 Approved by: Reji Lopez M.D. on 11/10/2021 at 15:23
[2021-11-10] MEDS: ACETAMINOPHEN 325 MG TABLET 650 MG PO (15:53)
[2021-11-10] MEDS: KETOROLAC 30 MG/ML VIAL 15 MG IV (15:54)
[2021-11-10] MEDS: cefTRIAXone 1,000 MG in SODIUM CHLORIDE 0.9% 100 ML 200 MG IV (15:56)
--- NOTE | 2021-11-10 16:00 | ED.BACK ---
HPI - Back Pain/Injury <Rebeca Lomeli, [facility] - Last Filed: 11/10/21 19:41> General Chief Complaint: Back Pain/Injury Stated Complaint: Here 3 weeks ago, sepsis, back pain Time Seen by Provider: 11/10/21 15:10 Source: patient History of Present Illness HPI Narrative: This is a 71-year-old female who presents to the emergency department with onset of left flank pain early this morning and she states that similar to when she had pyelonephritis and was admitted to the hospital on 10/21/2021. Patient denies any dysuria, states that when she had pyelonephritis she did not have any urinary symptoms, she states that she does not have frequency or urgency and is without dysuria. Patient denies any altered mental status, fever, chills, nausea or vomiting, diarrhea, denies any chest pain or shortness of breath. She states that she did not want to get as sick as she did last time so she came in as soon as she had this symptom. She denies seeing any blood in her urine, states that she did have a CT when she was admitted but did not have any evidence of kidney stones at that time. Her urine culture grew out E coli and was susceptible to all tested antibiotics. Related Data Home Medications Medication Instructions Recorded Confirmed sertraline 100 mg tablet 100 mg PO QDAY ##0 04/22/11 10/22/21 simvastatin 40 mg tablet 40 mg PO QDAY ##0 04/22/11 10/22/21 amlodipine 5 mg tablet 5 mg PO DAILY 10/22/21 10/22/21 bupropion HCl 300 mg 24 hr tablet, 300 mg PO QAM 10/22/21 10/22/21 extended release metformin 500 mg tablet,extended 500 mg PO DAILY 10/22/21 10/22/21 release 24 hr Previous Rx's Medication Instructions Recorded Lactobacillus acidophilus 2,000 mmu cells PO BID #30 caps 10/24/21 (Acidophilus) ketorolac 10 mg tablet 10 mg PO Q8H PRN pain #14 tabs 11/10/21 ondansetron 4 mg disintegrating 4 mg PO Q8H PRN nausea and 11/10/21 tablet vomiting #10 tabs sulfamethoxazole 800 1 tab PO BID 10 days #20 tabs 11/10/21 mg-trimethoprim 160 mg tablet (Bactrim DS) Allergies Allergy/AdvReac Type Severity Reaction Status Date / Time bacitracin Allergy Intermediate OINTMENT Verified 10/21/21 21:10 USED ON EYE AND CAUSED A RASH LOCALIZED neomycin Allergy Intermediate SKIN Verified 10/21/21 21:10 [From Neosporin + Pain HATFIELD AND Relief] BLISTERS polymyxin B Allergy Intermediate SKIN Verified 10/21/21 21:10 [From Neosporin + Pain HATFIELD AND Relief] BLISTERS pramoxine Allergy Intermediate SKIN Verified 10/21/21 21:10 [From Neosporin + Pain HATFIELD AND Relief] BLISTERS Review of Systems <ISABELLA Lama - Last Filed: 11/10/21 19:41> Review of Systems Narrative: General: denies fever, chills, malaise, sweats, fatigue Head/Neck: denies headache, neck pain, dizziness Eyes: denies visual changes, eye pain Cardio: denies chest pain, palpitations, edema Respiratory: denies dyspnea, cough, orthopnea GI: denies abdominal pain, nausea, vomiting, or diarrhea : denies dysuria, hematuria, urinary retention, frequency or incontinence MSK: denies joint pain, muscle weakness, left-sided flank pain Skin: denies rash, itching, skin lesions or other Neuro: denies numbness, tingling Patient History <ISABELLA Lama - Last Filed: 11/10/21 19:41> Medical History Diabetes type 2, controlled Essential hypertension Hyperlipidemia Family History Father Kidney failure Mother Alzheimer's dementia Social History household members: spouse Smoking Status: Never smoker alcohol intake: current Smoking Status: Never smoker Substance Use Type: does not use Exam <ISABELLA Lama - Last Filed: 11/10/21 19:41> Narrative Exam Narrative: Independently reviewed vitals signs and nursing notes. General: cooperative, comfortable, in no acute distress, well groomed Head: atraumatic, symmetrical facial expressions Neck: supple Eyes: equal round and reactive, EOMI, conjunctiva normal Nose: nares patent, no rhinorrhea Mouth/Throat: moist mucus membranes Cardiovascular: regular rate and rhythm, no peripheral edema, warm extremities Respiratory: normal effort, able to speak in complete sentences, no audible wheezing, stridor, or rales. No retractions or tachypnea. GI: abdomen soft, nontender to palpation, nondistended, no masses, no exquisite tenderness with exam, without guarding or rebound. MSK: moves all extremities, neurovascularly intact, no weakness, normal tone, left CVA tenderness Skin: brisk capillary refill, no rash, no erythema Neuro: normal speech and cognition, A&O x3 Psych: mental status is grossly normal, congruent mood, normal affect, pleasant and cooperative Initial Vital Signs Initial Vital Signs: Vital Signs Pulse Rate 80 11/10/21 15:00 Blood Pressure 181/74 H 11/10/21 15:00 Pulse Oximetry 98 11/10/21 15:00 <Wendie Quinones DO - Last Filed: 11/11/21 07:41> Initial Vital Signs Initial Vital Signs: Vital Signs Pulse Rate 80 11/10/21 15:00 Blood Pressure 181/74 H 11/10/21 15:00 Pulse Oximetry 98 11/10/21 15:00 Course <ISABELLA Lama - Last Filed: 11/10/21 19:41> Orders Ordered: Discontinued Medications Acetaminophen (Acetaminophen 325 Mg Tablet) 325 mg PO NOW ONE Stop: 11/10/21 15:46 Last Admin: 11/10/21 16:02 Dose: Not Given Documented By: VAN Acetaminophen (Acetaminophen 325 Mg Tablet) 650 mg PO NOW ONE Stop: 11/10/21 15:50 Last Admin: 11/10/21 15:53 Dose: 650 mg Documented By: VAN Hydrocodone Bitart/Acetaminophen (Hydrocodone/Acet 5/325 Tablet) 1 tab PO NOW ONE Stop: 11/10/21 15:45 Last Admin: 11/10/21 16:02 Dose: Not Given Documented By: VAN Albuterol (Albuterol Hfa Prepack) 1 box MISC SEEINSTR ONE Stop: 11/10/21 17:19 Last Admin: 11/10/21 17:52 Dose: Not Given Documented By: VAN(2) Ceftriaxone Sodium 1,000 mg/ (Sodium Chloride) 100 mls @ 200 mls/hr IV NOW ONE Stop: 11/10/21 15:43 Last Infusion: 11/10/21 16:44 Dose: 0 mls/hr Documented By: Admin: 11/10/21 15:56 Dose: 200 mls/hr Documented By: VAN Lactated Ringer's (Lactated Ringers) 1,000 mls @ 1,000 mls/hr IV BOLUS ONE Stop: 11/10/21 17:46 Last Infusion: 11/10/21 18:10 Dose: 0 mls/hr Documented By: VAN(2) Admin: 11/10/21 16:55 Dose: 1,000 mls/hr Documented By: VAN Ketorolac Tromethamine (Ketorolac 30 Mg/Ml Vial) 15 mg IV NOW ONE Stop: 11/10/21 15:45 Last Admin: 11/10/21 15:54 Dose: 15 mg Documented By: VAN Vital Signs Vital signs: Vital Signs - 8 hr 11/10/21 15:02 11/10/21 15:00 11/10/21 15:00 Temperature 98.3 F Pulse Rate 83 80 Respiratory Rate 18 Blood Pressure 181/74 H 181/74 H Pulse Oximetry 97 98 Oxygen Delivery Method Room Air 11/10/21 15:06 11/10/21 15:06 11/10/21 15:30 Temperature Pulse Rate 83 73 Respiratory Rate Blood Pressure 144/65 H Pulse Oximetry 97 98 Oxygen Delivery Method 11/10/21 16:21 11/10/21 16:22 11/10/21 16:22 Temperature Pulse Rate 71 73 Respiratory Rate Blood Pressure 132/63 Pulse Oximetry 98 98 Oxygen Delivery Method 11/10/21 16:30 11/10/21 18:11 Temperature Pulse Rate 72 70 Respiratory Rate Blood Pressure 130/65 Pulse Oximetry 98 97 Oxygen Delivery Method Room Air <Wendie Quinones DO - Last Filed: 11/11/21 07:41> Orders Ordered: Discontinued Medications Acetaminophen (Acetaminophen 325 Mg Tablet) 325 mg PO NOW ONE Stop: 11/10/21 15:46 Last Admin: 11/10/21 16:02 Dose: Not Given Documented By: VAN Acetaminophen (Acetaminophen 325 Mg Tablet) 650 mg PO NOW ONE Stop: 11/10/21 15:50 Last Admin: 11/10/21 15:53 Dose: 650 mg Documented By: VAN Hydrocodone Bitart/Acetaminophen (Hydrocodone/Acet 5/325 Tablet) 1 tab PO NOW ONE Stop: 11/10/21 15:45 Last Admin: 11/10/21 16:02 Dose: Not Given Documented By: VAN Albuterol (Albuterol Hfa Prepack) 1 box MISC SEEINSTR ONE Stop: 11/10/21 17:19 Last Admin: 11/10/21 17:52 Dose: Not Given Documented By: VAN(2) Ceftriaxone Sodium 1,000 mg/ (Sodium Chloride) 100 mls @ 200 mls/hr IV NOW ONE Stop: 11/10/21 15:43 Last Infusion: 11/10/21 16:44 Dose: 0 mls/hr Documented By: Admin: 11/10/21 15:56 Dose: 200 mls/hr Documented By: VAN Lactated Ringer's (Lactated Ringers) 1,000 mls @ 1,000 mls/hr IV BOLUS ONE Stop: 11/10/21 17:46 Last Infusion: 11/10/21 18:10 Dose: 0 mls/hr Documented By: VAN(2) Admin: 11/10/21 16:55 Dose: 1,000 mls/hr Documented By: VAN Ketorolac Tromethamine (Ketorolac 30 Mg/Ml Vial) 15 mg IV NOW ONE Stop: 11/10/21 15:45 Last Admin: 11/10/21 15:54 Dose: 15 mg Documented By: VAN Vital Signs Vital signs: Vital Signs - 8 hr 11/10/21 15:02 11/10/21 15:00 11/10/21 15:00 Temperature 98.3 F Pulse Rate 83 80 Respiratory Rate 18 Blood Pressure 181/74 H 181/74 H Pulse Oximetry 97 98 Oxygen Delivery Method Room Air 11/10/21 15:06 11/10/21 15:06 11/10/21 15:30 Temperature Pulse Rate 83 73 Respiratory Rate Blood Pressure 144/65 H Pulse Oximetry 97 98 Oxygen Delivery Method 11/10/21 16:21 11/10/21 16:22 11/10/21 16:22 Temperature Pulse Rate 71 73 Respiratory Rate Blood Pressure 132/63 Pulse Oximetry 98 98 Oxygen Delivery Method 11/10/21 16:30 11/10/21 18:11 Temperature Pulse Rate 72 70 Respiratory Rate Blood Pressure 130/65 Pulse Oximetry 98 97 Oxygen Delivery Method Room Air MDM - Back Pain/Injury <Rebeca Pranav Crew, [facility] - Last Filed: 11/10/21 19:41> Lab Data Result diagrams: 11/10/21 16:19 11/10/21 16:19 Labs: Lab Results 11/10/21 11/10/21 11/10/21 Range/Units 15:00 16:19 16:19 WBC 7.1 (4.5-11.0) X10^3/uL RBC 4.10 (4.0-5.2) X10^6/uL Hgb 12.1 (12.0-16.0) g/dL Hct 34.1 L (36-46) % MCV 83.2 (80-100) fL MCH 29.5 (26-34) PG MCHC 35.4 (30-36) % RDW 13.6 (11.6-14.8) % Plt Count 348 (150-400) X10^3/uL Neut % (Auto) 62.1 (50-75) % Lymph % (Auto) 27.7 (25-40) % [place] % (Auto) 7.3 (3-14) % Eos % (Auto) 2.1 (2-4) % Baso % (Auto) 0.8 (0-2) % Neut # (Auto) 4400 (5242-7051) /uL Lymph # (Auto) 2000 (0865-7302) /uL [place] # (Auto) 500 (0-900) /uL Eos # (Auto) 100 (0-450) /uL Baso # (Auto) 100 (0-100) /uL Sodium 137 (137-145) mmol/L Potassium 3.9 (3.4-5.1) mmol/L Chloride 101 (98-107) mmol/L Carbon Dioxide 28 (22-32) mmol/L BUN 19 H (7-17) mg/dL Creatinine 0.88 (0.52-1.04) mg/dL Estimated GFR > 60 (>60) mL/min BUN/Creatinine Ratio 21.6 (6-22) Glucose 210 H (80-110) mg/dL Lactate (0.7-2.1) mmol/L Calcium 8.7 (8.4-10.2) mg/dL Total Bilirubin 0.5 (0.2-1.3) mg/dL AST 25 (14-36) IU/L ALT 17 (<35) IU/L Alkaline Phosphatase 90 (38-126) U/L Total Protein 7.3 (6.3-8.2) g/dL Albumin 4.0 (3.5-5.0) g/dL Globulin 3.3 (1.7-4.1) g/dL Albumin/Globulin Ratio 1.2 (1.0-2.8) Urine Color Yellow Urine Appearance Clear Urine pH 7.0 (4.5-8.0) Ur Specific [place] <=1.005 (1.000-1.035) Urine Protein Negative (Negative) Urine Glucose (UA) Negative (Negative) g/dL Urine Ketones Negative (NEGATIVE) Urine Occult Blood Trace-intact (Negative) Urine Nitrate Negative (Negative) Urine Bilirubin Negative (NEGATIVE) Urine Urobilinogen 0.2 (0.2) E.U./dL Ur Leukocyte Esterase Trace H (NEGATIVE) Urine RBC 0-1/hpf (0-5/HPF) Urine WBC 1-5/hpf (0-5/HPF) Ur Squamous Epith Cells 1-5 /hpf (0-5/HPF) Ur Renal Epithelial Cell 0-1/hpf (0-1/HPF) Urine Bacteria Occasional (0-1) D (None) Ur Culture Indicated? Specimen cultured 11/10/21 11/10/21 Range/Units 16:19 17:31 WBC (4.5-11.0) X10^3/uL RBC (4.0-5.2) X10^6/uL Hgb (12.0-16.0) g/dL Hct (36-46) % MCV (80-100) fL MCH (26-34) PG MCHC (30-36) % RDW (11.6-14.8) % Plt Count (150-400) X10^3/uL Neut % (Auto) (50-75) % Lymph % (Auto) (25-40) % [place] % (Auto) (3-14) % Eos % (Auto) (2-4) % Baso % (Auto) (0-2) % Neut # (Auto) (8114-5066) /uL Lymph # (Auto) (4013-2918) /uL [place] # (Auto) (0-900) /uL Eos # (Auto) (0-450) /uL Baso # (Auto) (0-100) /uL Sodium (137-145) mmol/L Potassium (3.4-5.1) mmol/L Chloride (98-107) mmol/L Carbon Dioxide (22-32) mmol/L BUN (7-17) mg/dL Creatinine (0.52-1.04) mg/dL Estimated GFR (>60) mL/min BUN/Creatinine Ratio (6-22) Glucose (80-110) mg/dL Lactate 2.3 H 1.6 (0.7-2.1) mmol/L Calcium (8.4-10.2) mg/dL Total Bilirubin (0.2-1.3) mg/dL AST (14-36) IU/L ALT (<35) IU/L Alkaline Phosphatase (38-126) U/L Total Protein (6.3-8.2) g/dL Albumin (3.5-5.0) g/dL Globulin (1.7-4.1) g/dL Albumin/Globulin Ratio (1.0-2.8) Urine Color Urine Appearance Urine pH (4.5-8.0) Ur Specific [place] (1.000-1.035) Urine Protein (Negative) Urine Glucose (UA) (Negative) g/dL Urine Ketones (NEGATIVE) Urine Occult Blood (Negative) Urine Nitrate (Negative) Urine Bilirubin (NEGATIVE) Urine Urobilinogen (0.2) E.U./dL Ur Leukocyte Esterase (NEGATIVE) Urine RBC (0-5/HPF) Urine WBC (0-5/HPF) Ur Squamous Epith Cells (0-5/HPF) Ur Renal Epithelial Cell (0-1/HPF) Urine Bacteria (None) Ur Culture Indicated? Urine Dip Bedside Urine Glucose Negative Bedside Urine Bilirubin - Negative Bedside Urine Ketone - Negative Urine Specific [place] 1.010 Bedside Urine Occult Blood - Negative Bedside Urine pH 6.5 Bedside Urine Protein - Negative Bedside Urine Urobilinogen - Negative Bedside Urine Nitrite - Negative Bedside Urine Leukocytes - Negative Esterase Imaging Data CT scan - abdomen/pelvis: Radiologist's Impression: PROCEDURE:? CT KIDNEY URETER BLADDER (KUB) ? INDICATIONS:? left flank pain ? TECHNIQUE:? Axial sections were acquired from the lung bases to the pubic symphysis.? Coronal and sagittal reformats were performed.? For radiation dose reduction, the following was used: ?automated exposure control, adjustment of mA and/or kV according to patient size.? ? COMPARISON:? None. ? FINDINGS:? Image quality:? Excellent.? ? Lung bases:? Unremarkable.? ? A small hiatal hernia is incidentally noted.? Heart:? No significant findings. ? URINARY: Right Kidney: ? No stones or hydronephrosis.? Right Ureter:? No hydroureter.? ? Left Kidney: ? No stones or hydronephrosis.? The previously seen left-sided perinephric fat stranding has resolved. Left Ureter:? No hydroureter.? ? Bladder:? Normal wall thickness. No stones. ? ? ? ABDOMEN: Liver:? Unremarkable.? ? Gallbladder:? Unremarkable.? ? Biliary ducts:? Unremarkable.? ? Pancreas:? Unremarkable.? ? Spleen:? Unremarkable.? ? Adrenal Glands:? Unremarkable.? ? ? Stomach and Bowel:? Stomach, small bowel loops, and colon are unremarkable.? There is a moderate amount of stool seen within the colon. Peritoneum:? No abnormal intraperitoneal fluid.? No free air.? ? Ventral Wall: ? A tree periumbilical hernia is seen, containing fat. ? Abdominal Nodes:? No enlarged retroperitoneal or mesenteric lymph nodes.? Vessels:? Aorta and inferior vena cava are normal in size.? ? PELVIS: Pelvic Organs: The uterus appears normal for age.? No adnexal masses are seen.? Pelvic Nodes: Unremarkable. Miscellaneous: No inguinal hernias are seen.? ? Pelvic phleboliths are incidentally noted. ? ? Bones:? Mild levoconvex scoliotic curvature is noted.? Moderate lumbar spine degenerative changes are seen.? Milder degenerative changes are seen elsewhere.? ? IMPRESSION:? ? Negative for kidney stones or obstructive uropathy. ? Resolution of the previously seen left-sided perinephric fat stranding. ? There is a moderate amount of stool seen within the colon. Please correlate with an underlying history of constipation.? ? Incidental note is made of: Small hiatal hernia Trace fat containing periumbilical hernia Levoconvex scoliotic curvature Moderate lumbar spine degenerative change ? ? Dictated by: Reji Lopez M.D. on 11/10/2021 at 15:21 ? ? Approved by: Reji Lopez M.D. on 11/10/2021 at 15:23 ? [facility] Narrative Medical decision making narrative: This is a 71-year-old female who presents to the emergency department with acute onset of left flank pain this morning when she woke up with a recent admission for pyelonephritis on 10/21/2021. Patient states that she finished her oral antibiotic after she was discharged on 11/01/2021, she was prescribed cefdinir. On review of her records, her blood and her urine cultures both grew out E coli and they were both pansensitive to all antibiotics. Today, she states that it she has not had any fever, any dysuria, no urgency or urinary frequency. She has a history of type 2 diabetes, hypertension, sepsis and pyelonephritis recently. She does not have any leukocytosis today,, her urine shows leukocyte esterase, sent down for microscopy which showed wbc's and squamous with some bacteria, it was sent for culture. CT KUB obtained for concern about infected nephrolith causing flank pain and ongoing pyelonephritis. CT KUB is negative for kidney stones or obstructive uropathy, resolution of the previously seen left-sided perinephric fat stranding. There is a moderate amount of stool seen within the colon and an incidental note of small hiatal hernia, trace fat containing periumbilical hernia, levoconvex scoliotic curvature and moderate lumbar spine degenerative changes. Patient's lactate is 2.3, she denied feeling dehydrated or having difficulty keeping fluids down. She denies any nausea vomiting today. She was given 1 L of lactated Ringer's after 1 g of ceftriaxone for acute complicated UTI. Patient's creatinine is 0.88, it was 1.03 on 10/24/2021. Repeat lactate is 1.6, down from 2.3. Patient will be discharged home on Bactrim for 10 days. She is encouraged to stay hydrated, return for any new or worsening symptoms, will follow-up on culture, she was given referral to Dr. Herrera if she has recurrence flank pain after antibiotics. Patient is appropriate and amenable to discharge home. Vital signs are stable on repeat examination is unremarkable. Patient has been informed of results. Patient has been given strict return to ER precautions for any new or worsening symptoms. Patient understands to follow up closely with outpatient providers as instructed. Patient understands plan and agrees to discharge home. All questions and concerns answered at this time. <Wendie C Mank, DO - Last Filed: 11/11/21 07:41> Lab Data Labs: Lab Results 11/10/21 11/10/21 11/10/21 Range/Units 15:00 16:19 16:19 WBC 7.1 (4.5-11.0) X10^3/uL RBC 4.10 (4.0-5.2) X10^6/uL Hgb 12.1 (12.0-16.0) g/dL Hct 34.1 L (36-46) % MCV 83.2 (80-100) fL MCH 29.5 (26-34) PG MCHC 35.4 (30-36) % RDW 13.6 (11.6-14.8) % Plt Count 348 (150-400) X10^3/uL Neut % (Auto) 62.1 (50-75) % Lymph % (Auto) 27.7 (25-40) % [place] % (Auto) 7.3 (3-14) % Eos % (Auto) 2.1 (2-4) % Baso % (Auto) 0.8 (0-2) % Neut # (Auto) 4400 (6420-0268) /uL Lymph # (Auto) 2000 (3686-2063) /uL [place] # (Auto) 500 (0-900) /uL Eos # (Auto) 100 (0-450) /uL Baso # (Auto) 100 (0-100) /uL Sodium 137 (137-145) mmol/L Potassium 3.9 (3.4-5.1) mmol/L Chloride 101 (98-107) mmol/L Carbon Dioxide 28 (22-32) mmol/L BUN 19 H (7-17) mg/dL Creatinine 0.88 (0.52-1.04) mg/dL Estimated GFR > 60 (>60) mL/min BUN/Creatinine Ratio 21.6 (6-22) Glucose 210 H (80-110) mg/dL Lactate (0.7-2.1) mmol/L Calcium 8.7 (8.4-10.2) mg/dL Total Bilirubin 0.5 (0.2-1.3) mg/dL AST 25 (14-36) IU/L ALT 17 (<35) IU/L Alkaline Phosphatase 90 (38-126) U/L Total Protein 7.3 (6.3-8.2) g/dL Albumin 4.0 (3.5-5.0) g/dL Globulin 3.3 (1.7-4.1) g/dL Albumin/Globulin Ratio 1.2 (1.0-2.8) Urine Color Yellow Urine Appearance Clear Urine pH 7.0 (4.5-8.0) Ur Specific [place] <=1.005 (1.000-1.035) Urine Protein Negative (Negative) Urine Glucose (UA) Negative (Negative) g/dL Urine Ketones Negative (NEGATIVE) Urine Occult Blood Trace-intact (Negative) Urine Nitrate Negative (Negative) Urine Bilirubin Negative (NEGATIVE) Urine Urobilinogen 0.2 (0.2) E.U./dL Ur Leukocyte Esterase Trace H (NEGATIVE) Urine RBC 0-1/hpf (0-5/HPF) Urine WBC 1-5/hpf (0-5/HPF) Ur Squamous Epith Cells 1-5 /hpf (0-5/HPF) Ur Renal Epithelial Cell 0-1/hpf (0-1/HPF) Urine Bacteria Occasional (0-1) D (None) Ur Culture Indicated? Specimen cultured 11/10/21 11/10/21 Range/Units 16:19 17:31 WBC (4.5-11.0) X10^3/uL RBC (4.0-5.2) X10^6/uL Hgb (12.0-16.0) g/dL Hct (36-46) % MCV (80-100) fL MCH (26-34) PG MCHC (30-36) % RDW (11.6-14.8) % Plt Count (150-400) X10^3/uL Neut % (Auto) (50-75) % Lymph % (Auto) (25-40) % [place] % (Auto) (3-14) % Eos % (Auto) (2-4) % Baso % (Auto) (0-2) % Neut # (Auto) (0109-7440) /uL Lymph # (Auto) (4079-7701) /uL [place] # (Auto) (0-900) /uL Eos # (Auto) (0-450) /uL Baso # (Auto) (0-100) /uL Sodium (137-145) mmol/L Potassium (3.4-5.1) mmol/L Chloride (98-107) mmol/L Carbon Dioxide (22-32) mmol/L BUN (7-17) mg/dL Creatinine (0.52-1.04) mg/dL Estimated GFR (>60) mL/min BUN/Creatinine Ratio (6-22) Glucose (80-110) mg/dL Lactate 2.3 H 1.6 (0.7-2.1) mmol/L Calcium (8.4-10.2) mg/dL Total Bilirubin (0.2-1.3) mg/dL AST (14-36) IU/L ALT (<35) IU/L Alkaline Phosphatase (38-126) U/L Total Protein (6.3-8.2) g/dL Albumin (3.5-5.0) g/dL Globulin (1.7-4.1) g/dL Albumin/Globulin Ratio (1.0-2.8) Urine Color Urine Appearance Urine pH (4.5-8.0) Ur Specific [place] (1.000-1.035) Urine Protein (Negative) Urine Glucose (UA) (Negative) g/dL Urine Ketones (NEGATIVE) Urine Occult Blood (Negative) Urine Nitrate (Negative) Urine Bilirubin (NEGATIVE) Urine Urobilinogen (0.2) E.U./dL Ur Leukocyte Esterase (NEGATIVE) Urine RBC (0-5/HPF) Urine WBC (0-5/HPF) Ur Squamous Epith Cells (0-5/HPF) Ur Renal Epithelial Cell (0-1/HPF) Urine Bacteria (None) Ur Culture Indicated? Urine Dip Bedside Urine Glucose Negative Bedside Urine Bilirubin - Negative Bedside Urine Ketone - Negative Urine Specific [place] 1.010 Bedside Urine Occult Blood - Negative Bedside Urine pH 6.5 Bedside Urine Protein - Negative Bedside Urine Urobilinogen - Negative Bedside Urine Nitrite - Negative Bedside Urine Leukocytes - Negative Esterase Discharge Plan Departure Patient Disposition: Home Clinical Impression: Acute pyelonephritis Instructions: DI for Kidney Infection, DI for Urinary Tract Infection (UTI) Activity Restrictions/Additional Instructions: *You have been diagnosed with a complicated urinary infection which is what we call pyelonephritis. Your CT does not show any calcifications or stones which could be infected or any obstruction of flow of urine from your kidney to your bladder. Please follow-up with Dr. Herrera if you have ongoing symptoms after your antibiotic is completed. Please follow-up with your provider Jonny at a follow up appointment sooner than in November. Please ask her for a follow-up from your emergency department visit from today when making an appointment. Please take your antibiotics for the next 10 days, focus on staying hydrated, take toradol every 8 hours as needed for pain with Tylenol. You may use Zofran as needed for nausea. Please return to the emergency department for any new or worsening symptoms, thank you for your patients and for your time today. I hope that you start feeling better soon. *What to do: *Please continue to take your regular medications as directed. [x ] New medication prescriptions sent to your pharmacy: [[facility] ] [ ] New medication written as a paper prescription [ ] No new medications given *Please follow up with your primary care provider in 2-3 days, call for an appointment. Let them know you were seen in the Emergency Department and that we asked that you be seen for follow-up. We will electronically transmit a record of today's note if your PCP is in our system *If you do not have a primary care provider please contact [phone] to establish care with one of the [facility] primary care providers. *Return to Emergency Department if you should have any new, worsening or concerning symptoms, such as [fever greater than 101F, chills, worsening pain, persistent vomiting or other bothersome symptoms] Prescriptions: New sulfamethoxazole-trimethoprim [Bactrim DS] 800-160 mg tablet 1 tab PO BID 10 Days Qty: 20 0RF ondansetron 4 mg tablet,disintegrating 4 mg PO Q8H PRN (Reason: nausea and vomiting) Qty: 10 0RF ketorolac 10 mg tablet 10 mg PO Q8H PRN (Reason: pain) Qty: 14 0RF Rx Instructions: Please take with food and water No Action simvastatin 40 MG tablet 40 mg PO QDAY Qty: 0 sertraline 100 MG tablet 100 mg PO QDAY Qty: 0 amlodipine 5 mg Tablet 5 mg PO DAILY metformin 500 mg Tablet Extended Release 24 Hr 500 mg PO DAILY bupropion HCl 300 mg Tablet Extended Release 24 Hr 300 mg PO QAM Acidophilus Capsule 2,000 mmu cells PO BID Qty: 30 0RF Referrals: Aysha Fuller PA-C [Primary Care Provider] - William Herrera MD [Physician] - Visit Report Forms: Patient Portal/API <Wendie Quinones DO - Last Filed: 11/11/21 07:41> Cosign ED Attending Cosmacyature Attestation: I was immediately available in the department for consultation. Documentation has been reviewed. Case was discussed agree with current plan.
[2021-11-10 16:29] LABS: Add Manual Diff / Slide Review NO; Basophils Absolute Auto 100 /uL (0-100); Basophils Percent Auto 0.8 % (0-2); Eosinophils Absolute Auto 100 /uL (0-450); Eosinophils Percent Auto 2.1 % (2-4); Hematocrit 34.1 % (36-46); Hemoglobin 12.1 g/dL (12.0-16.0); Lymphocytes Absolute Auto 2000 /uL (1100-4500); Lymphocytes Percent Auto 27.7 % (25-40); Mean Corpuscular HGB Conc 35.4 % (30-36); Mean Corpuscular Hemoglobin 29.5 PG (26-34); Mean Corpuscular Volume 83.2 fL (80-100); Monocytes Absolute Auto 500 /uL (0-900); Monocytes Percent Auto 7.3 % (3-14); Neutrophils Absolute Auto 4400 /uL (1500-7000); Neutrophils Percent Auto 62.1 % (50-75); Platelet Count 348 X10^3/uL (150-400); Red Cell Distribution Width 13.6 % (11.6-14.8); White Blood Cell Count 7.1 X10^3/uL (4.5-11.0)
[2021-11-10 16:38] LABS: Lactate (Lactic Acid) 2.3 mmol/L (0.7-2.1)
[2021-11-10 16:39] LABS: Alanine Aminotransferase 17 IU/L (<35); Albumin Globulin Ratio 1.2 (1.0-2.8); Alkaline Phosphatase 90 U/L (38-126); Aspartate Aminotransferase 25 IU/L (14-36); BUN Creatinine Ratio 21.6 (6-22); Bilirubin Total 0.5 mg/dL (0.2-1.3); Blood Urea Nitrogen 19 mg/dL (7-17); Calcium 8.7 mg/dL (8.4-10.2); Carbon Dioxide 28 mmol/L (22-32); Chloride 101 mmol/L (98-107); Estimated Glomerular Filt Rate > 60 mL/min (>60); Globulin 3.3 g/dL (1.7-4.1); Glucose 210 mg/dL (80-110); HEMOLYSIS < 15 (0-50); Potassium 3.9 mmol/L (3.4-5.1); Sodium 137 mmol/L (137-145); Total Protein 7.3 g/dL (6.3-8.2)
[2021-11-10] MEDS: LACTATED RINGERS 1,000 ML 1000 ML IV (16:55)
[2021-11-10 17:58] LABS: Lactate (Lactic Acid) 1.6 mmol/L (0.7-2.1)
[2021-11-10 18:25] LABS: Reflexed Lactate in 2 Hours Y
== END 2021-11-10 18:12 | disposition home or self-care (01) ==
PROVIDERS: Emergency Medicine; Emergency Provider Nurse Practitioner Critical Care Medicine; PCP Student in an Organized Health Care Education/Training Program
DX: N10 Acute pyelonephritis (principal)
CPT/HCPCS: 36415; 74176; 80053; 81001; 81003; 83605; 85025; 87086; 96361; 96365; 96375; 99284; J0696; J1885

== ENCOUNTER 2022-01-31 04:36 | Observation (INO) | payer MEDICARE, OTHER, SELFPAY ==
[2022-01-31] VITALS (35 sets, daily range): BP systolic 103–160; BP diastolic 53–74; PULSE 61–103; RESP 14–27; TEMP 36.6–36.8; O2SAT 96–99; BMI 27.4; BMI 29.4
--- NOTE | 2022-01-31 04:55 | ED_ITS ---
HPI - Chest Pain <Grey LandonDO lora - Last Filed: 02/01/22 03:45> General Chief Complaint: Chest Pain Stated Complaint: pain chest and back Time Seen by Provider: 01/31/22 04:54 Source: patient Mode of arrival: Ambulatory Limitations: no limitations History of Present Illness HPI narrative: 71-year-old female nonsmoker with history of hypertension and a relatively recent hospitalization for UTI with sepsis presents with her in the chief complaint of a retrosternal chest pain that woke her up at 1:00 a.m.. She states that at its most intense it was a 7/10 and currently is a 5/10. She states it radiates up into her neck and also into her back. She states that deep breath seems to possibly exacerbate her symptoms. She denies any obvious palliation. She is not dizzy nor weak or lightheaded. She has no shortness of breath, cough nor nausea, vomiting or unexplained diaphoresis. She states that she was in her normal state of health yesterday and went to bed feeling fine. She denies any exercise intolerance or recent unexplained fatigue. She is had no recent long distance travel, history of blood clot or known cancer. Related Data Home Medications Medication Instructions Recorded Confirmed sertraline 100 mg tablet 100 mg PO QDAY ##0 04/22/11 01/31/22 simvastatin 40 mg tablet 40 mg PO QDAY ##0 04/22/11 01/31/22 amlodipine 5 mg tablet 5 mg PO DAILY 10/22/21 01/31/22 bupropion HCl 300 mg 24 hr tablet, 300 mg PO QAM 10/22/21 01/31/22 extended release metformin 500 mg tablet,extended 500 mg PO DAILY 10/22/21 01/31/22 release 24 hr Previous Rx's Medication Instructions Recorded pantoprazole 20 mg tablet,delayed 20 mg PO DAILY 30 days #30 tabs 01/31/22 release Allergies Allergy/AdvReac Type Severity Reaction Status Date / Time bacitracin Allergy Intermediate OINTMENT Verified 01/31/22 11:31 USED ON EYE AND CAUSED A RASH LOCALIZED neomycin Allergy Intermediate SKIN Verified 01/31/22 11:31 [From Neosporin + Pain HATFIELD AND Relief] BLISTERS polymyxin B Allergy Intermediate SKIN Verified 01/31/22 11:31 [From Neosporin + Pain HATFIELD AND Relief] BLISTERS pramoxine Allergy Intermediate SKIN Verified 01/31/22 11:31 [From Neosporin + Pain HATFIELD AND Relief] BLISTERS Review of Systems <Grey Martinez DO - Last Filed: 02/01/22 03:45> Review of Systems Narrative: GENERAL: Denies chills, fatigue, malaise, fever, sweats. HEENT: Denies sinus pain, ear pain, sore throat, difficulty swallowing, dizziness. RESPIRATORY: Denies dyspnea, cough, wheezing, hemoptysis, sputum. CARDIOVASCULAR: See HPI GASTROINTESTINAL: Denies nausea, vomiting, abdominal pain, diarrhea, constipation, melena. : Denies dysuria, frequency, incontinence, hematuria, urinary retention. MUSCULOSKELETAL: denies weakness, joint pain, or bony pain SKIN: Denies rash, skin lesions, or other NEUROLOGIC: Denies weakness, headache, numbness, change in speech, confusion, seizures, incoordination. PSYCHIATRIC: No concerning psychosocial issues. 12 point review of systems is negative except for those stated above Patient History <Grey Martinez DO - Last Filed: 02/01/22 03:45> Medical History Diabetes type 2, controlled Essential hypertension Hyperlipidemia Surgical History No pertinent past surgical history Family History Father Kidney failure CAD (coronary artery disease) Mother Alzheimer's dementia Brother CAD (coronary artery disease) Social History household members: spouse Smoking Status: Never smoker alcohol intake: current Smoking Status: Never smoker Substance Use Type: does not use Exam <Grey Martinez DO - Last Filed: 02/01/22 03:45> Narrative Exam Narrative: GENERAL: [71] year old patient appears stated age. Well-developed patient, in mild distress. HEAD: Atraumatic. Normocephalic. EYES: Pupils equal round and reactive. Extraocular motions intact. No scleral icterus. No injection or drainage. ENT: Nose without bleeding, purulent drainage. Throat without erythema, tonsillar hypertrophy or exudate. Airway patent. NECK: Trachea midline. Non tender CARDIOVASCULAR: Regular rate and rhythm without murmurs, gallops, or rubs. RESPIRATORY: Clear to auscultation. Breath sounds equal bilaterally. No wheezes, rales, or rhonchi. GASTROINTESTINAL: Abdomen soft, non-tender, nondistended. EXTREMITIES: No edema or joint tenderness. BACK: Nontender without deformity or crepitance. No flank tenderness. NEURO: AOx3. SKIN: No rash or erythema of visible areas Initial Vital Signs Initial Vital Signs: Vital Signs Temperature 98.3 F 01/31/22 04:35 Pulse Rate 103 H 01/31/22 04:35 Respiratory Rate 01/31/22 04:35 Blood Pressure 103/55 L 01/31/22 04:35 Pulse Oximetry 98 01/31/22 04:35 Oxygen Delivery Method 01/31/22 04:35 <Ailyn Louise DO - Last Filed: 01/31/22 11:13> Initial Vital Signs Initial Vital Signs: Vital Signs Temperature 98.3 F 01/31/22 04:35 Pulse Rate 103 H 01/31/22 04:35 Respiratory Rate 01/31/22 04:35 Blood Pressure 103/55 L 01/31/22 04:35 Pulse Oximetry 98 01/31/22 04:35 Oxygen Delivery Method 01/31/22 04:35 Scores <DO Carmen Mancini Last Filed: 02/01/22 03:45> HEART Score Heart Score history: Moderately Suspicious Heart Score EKG: Non-Specific repolarization disturbance Heart Score Age: > or = 65 years old Heart Score risk factors: 1-2 risk factors Heart Score troponin: < or = to normal limit Heart Score Total: 5 <DO Carmen Dihn Last Filed: 01/31/22 11:13> HEART Score Heart Score Total: 5 Course <DO Carmen Mancini Last Filed: 02/01/22 03:45> Orders Ordered: Discontinued Medications Acetaminophen (Acetaminophen 325 Mg Tablet) 650 mg PO Q6HR PRN PRN Reason: Fever/Mild Pain (1-3) Aspirin (Aspirin 81 Mg Chew Tab) 324 mg PO NOW ONE Stop: 01/31/22 04:56 Last Admin: 01/31/22 05:03 Dose: 324 mg Documented By: CYNTHIA Calcium Carbonate (Calcium Carbonate 500 Mg Tab) 1,000 mg PO Q4HR PRN PRN Reason: Dyspepsia Sodium Chloride (Normal Saline 0.9%) 1,000 mls @ 150 mls/hr IV CONT SUE Last Infusion: 01/31/22 09:41 Dose: 0 mls/hr Documented By: Admin: 01/31/22 05:03 Dose: 150 mls/hr Documented By: CYNTHIA Nitroglycerin (Nitroglycerin 0.4 Mg Sl Tab) 0.4 mg SL [id number] PRN PRN Reason: Chest Pain Last Admin: 01/31/22 05:23 Dose: 0.4 mg Documented By: Admin: 01/31/22 05:11 Dose: 0.4 mg Documented By: Admin: 01/31/22 05:06 Dose: 0.4 mg Documented By: CYNTHIA Ondansetron HCl (Ondansetron 4 Mg Odt) 4 mg PO Q8HR PRN PRN Reason: Nausea And Vomiting Pantoprazole Sodium (Pantoprazole 40 Mg Vial) 40 mg IV NOW ONE Stop: 01/31/22 07:56 Last Admin: 01/31/22 08:01 Dose: 40 mg Documented By: IVY Pantoprazole Sodium (Pantoprazole Dr 20 Mg Tablet) 20 mg PO 0600 [facility] Reevaluation(s) Reevaluation #1: pain free after 3rd nitro Vital Signs Vital signs: Vital Signs - 8 hr 01/31/22 04:35 01/31/22 04:42 01/31/22 05:06 Temperature 98.3 F Pulse Rate 103 H 68 71 Respiratory Rate 20 20 Blood Pressure 103/55 L 160/68 H Pulse Oximetry 98 99 Oxygen Delivery Method Room Air 01/31/22 05:11 01/31/22 05:23 01/31/22 05:00 Temperature Pulse Rate 73 65 Respiratory Rate Blood Pressure 131/63 117/61 160/68 H Pulse Oximetry Oxygen Delivery Method 01/31/22 05:00 01/31/22 05:10 01/31/22 05:10 Temperature Pulse Rate 65 76 Respiratory Rate 18 22 Blood Pressure 131/63 Pulse Oximetry 98 97 Oxygen Delivery Method 01/31/22 05:15 01/31/22 05:15 01/31/22 05:20 Temperature Pulse Rate 73 Respiratory Rate 20 Blood Pressure 111/57 L 117/61 Pulse Oximetry 97 Oxygen Delivery Method 01/31/22 05:20 01/31/22 05:25 01/31/22 05:25 Temperature Pulse Rate 69 66 Respiratory Rate 21 22 Blood Pressure 134/61 Pulse Oximetry 96 97 Oxygen Delivery Method 01/31/22 05:30 01/31/22 05:30 01/31/22 05:35 Temperature Pulse Rate 73 Respiratory Rate 21 Blood Pressure 117/53 L 115/57 L Pulse Oximetry 97 Oxygen Delivery Method 01/31/22 05:35 01/31/22 05:40 01/31/22 05:40 Temperature Pulse Rate 67 66 Respiratory Rate 25 H 20 Blood Pressure 119/67 Pulse Oximetry 97 98 Oxygen Delivery Method 01/31/22 05:45 01/31/22 05:45 01/31/22 06:06 Temperature Pulse Rate 65 81 Respiratory Rate 22 Blood Pressure 121/62 Pulse Oximetry 97 98 Oxygen Delivery Method 01/31/22 06:07 01/31/22 06:07 01/31/22 06:10 Temperature Pulse Rate 71 Respiratory Rate 16 Blood Pressure 153/70 H 142/66 H Pulse Oximetry 99 Oxygen Delivery Method 01/31/22 06:10 01/31/22 06:15 01/31/22 06:15 Temperature Pulse Rate 65 63 Respiratory Rate 17 18 Blood Pressure 128/64 Pulse Oximetry 99 99 Oxygen Delivery Method 01/31/22 06:20 01/31/22 06:20 01/31/22 06:25 Temperature Pulse Rate 62 Respiratory Rate 17 Blood Pressure 140/69 135/68 Pulse Oximetry 97 Oxygen Delivery Method 01/31/22 06:25 01/31/22 06:30 01/31/22 06:30 Temperature Pulse Rate 61 61 Respiratory Rate 17 15 Blood Pressure 136/74 Pulse Oximetry 97 97 Oxygen Delivery Method 01/31/22 06:35 01/31/22 06:35 01/31/22 06:40 Temperature Pulse Rate 62 Respiratory Rate 16 Blood Pressure 137/70 132/67 Pulse Oximetry 97 Oxygen Delivery Method 01/31/22 06:40 01/31/22 06:45 01/31/22 06:45 Temperature Pulse Rate 61 61 Respiratory Rate 15 15 Blood Pressure 138/68 Pulse Oximetry 97 97 Oxygen Delivery Method 01/31/22 06:50 01/31/22 06:50 01/31/22 06:55 Temperature Pulse Rate 61 Respiratory Rate 14 Blood Pressure 137/67 147/68 H Pulse Oximetry 98 Oxygen Delivery Method 01/31/22 06:55 01/31/22 07:00 01/31/22 07:00 Temperature Pulse Rate 61 63 Respiratory Rate 16 19 Blood Pressure 127/67 Pulse Oximetry 98 99 Oxygen Delivery Method 01/31/22 07:52 01/31/22 08:00 01/31/22 08:30 Temperature Pulse Rate 65 63 62 Respiratory Rate 27 H 16 Blood Pressure Pulse Oximetry 99 99 98 Oxygen Delivery Method 01/31/22 09:00 Temperature Pulse Rate 61 Respiratory Rate Blood Pressure Pulse Oximetry 98 Oxygen Delivery Method <Ailyn Louise, - Last Filed: 01/31/22 11:13> Orders Ordered: Discontinued Medications Acetaminophen (Acetaminophen 325 Mg Tablet) 650 mg PO Q6HR PRN PRN Reason: Fever/Mild Pain (1-3) Aspirin (Aspirin 81 Mg Chew Tab) 324 mg PO NOW ONE Stop: 01/31/22 04:56 Last Admin: 01/31/22 05:03 Dose: 324 mg Documented By: CYNTHIA Calcium Carbonate (Calcium Carbonate 500 Mg Tab) 1,000 mg PO Q4HR PRN PRN Reason: Dyspepsia Sodium Chloride (Normal Saline 0.9%) 1,000 mls @ 150 mls/hr IV CONT SUE Last Infusion: 01/31/22 09:41 Dose: 0 mls/hr Documented By: Admin: 01/31/22 05:03 Dose: 150 mls/hr Documented By: CYNTHIA Nitroglycerin (Nitroglycerin 0.4 Mg Sl Tab) 0.4 mg SL [id number] PRN PRN Reason: Chest Pain Last Admin: 01/31/22 05:23 Dose: 0.4 mg Documented By: Admin: 01/31/22 05:11 Dose: 0.4 mg Documented By: Admin: 01/31/22 05:06 Dose: 0.4 mg Documented By: CYNTHIA Ondansetron HCl (Ondansetron 4 Mg Odt) 4 mg PO Q8HR PRN PRN Reason: Nausea And Vomiting Pantoprazole Sodium (Pantoprazole 40 Mg Vial) 40 mg IV NOW ONE Stop: 01/31/22 07:56 Last Admin: 01/31/22 08:01 Dose: 40 mg Documented By: IVY Pantoprazole Sodium (Pantoprazole Dr 20 Mg Tablet) 20 mg PO 0600 [facility] Vital Signs Vital signs: Vital Signs - 8 hr 09/01/22 04:35 01/31/22 04:42 01/31/22 05:06 Temperature 98.3 F Pulse Rate 103 H 68 71 Respiratory Rate 20 20 Blood Pressure 103/55 L 160/68 H Pulse Oximetry 98 99 Oxygen Delivery Method Room Air 01/31/22 05:11 01/31/22 05:23 01/31/22 05:00 Temperature Pulse Rate 73 65 Respiratory Rate Blood Pressure 131/63 117/61 160/68 H Pulse Oximetry Oxygen Delivery Method 01/31/22 05:00 01/31/22 05:10 01/31/22 05:10 Temperature Pulse Rate 65 76 Respiratory Rate 18 22 Blood Pressure 131/63 Pulse Oximetry 98 97 Oxygen Delivery Method 01/31/22 05:15 01/31/22 05:15 01/31/22 05:20 Temperature Pulse Rate 73 Respiratory Rate 20 Blood Pressure 111/57 L 117/61 Pulse Oximetry 97 Oxygen Delivery Method 01/31/22 05:20 01/31/22 05:25 01/31/22 05:25 Temperature Pulse Rate 69 66 Respiratory Rate 21 22 Blood Pressure 134/61 Pulse Oximetry 96 97 Oxygen Delivery Method 01/31/22 05:30 01/31/22 05:30 01/31/22 05:35 Temperature Pulse Rate 73 Respiratory Rate 21 Blood Pressure 117/53 L 115/57 L Pulse Oximetry 97 Oxygen Delivery Method 01/31/22 05:35 01/31/22 05:40 01/31/22 05:40 Temperature Pulse Rate 67 66 Respiratory Rate 25 H 20 Blood Pressure 119/67 Pulse Oximetry 97 98 Oxygen Delivery Method 01/31/22 05:45 01/31/22 05:45 01/31/22 06:06 Temperature Pulse Rate 65 81 Respiratory Rate 22 Blood Pressure 121/62 Pulse Oximetry 97 98 Oxygen Delivery Method 01/31/22 06:07 01/31/22 06:07 01/31/22 06:10 Temperature Pulse Rate 71 Respiratory Rate 16 Blood Pressure 153/70 H 142/66 H Pulse Oximetry 99 Oxygen Delivery Method 01/31/22 06:10 01/31/22 06:15 01/31/22 06:15 Temperature Pulse Rate 65 63 Respiratory Rate 17 18 Blood Pressure 128/64 Pulse Oximetry 99 99 Oxygen Delivery Method 01/31/22 06:20 01/31/22 06:20 01/31/22 06:25 Temperature Pulse Rate 62 Respiratory Rate 17 Blood Pressure 140/69 135/68 Pulse Oximetry 97 Oxygen Delivery Method 01/31/22 06:25 01/31/22 06:30 01/31/22 06:30 Temperature Pulse Rate 61 61 Respiratory Rate 17 15 Blood Pressure 136/74 Pulse Oximetry 97 97 Oxygen Delivery Method 01/31/22 06:35 01/31/22 06:35 01/31/22 06:40 Temperature Pulse Rate 62 Respiratory Rate 16 Blood Pressure 137/70 132/67 Pulse Oximetry 97 Oxygen Delivery Method 01/31/22 06:40 01/31/22 06:45 01/31/22 06:45 Temperature Pulse Rate 61 61 Respiratory Rate 15 15 Blood Pressure 138/68 Pulse Oximetry 97 97 Oxygen Delivery Method 01/31/22 06:50 01/31/22 06:50 01/31/22 06:55 Temperature Pulse Rate 61 Respiratory Rate 14 Blood Pressure 137/67 147/68 H Pulse Oximetry 98 Oxygen Delivery Method 01/31/22 06:55 01/31/22 07:00 01/31/22 07:00 Temperature Pulse Rate 61 63 Respiratory Rate 16 19 Blood Pressure 127/67 Pulse Oximetry 98 99 Oxygen Delivery Method 01/31/22 07:52 01/31/22 08:00 01/31/22 08:30 Temperature Pulse Rate 65 63 62 Respiratory Rate 27 H 16 Blood Pressure Pulse Oximetry 99 99 98 Oxygen Delivery Method 01/31/22 09:00 Temperature Pulse Rate 61 Respiratory Rate Blood Pressure Pulse Oximetry 98 Oxygen Delivery Method MDM - Chest Pain <Grey Martinez, DO - Last Filed: 02/01/22 03:45> Lab Data Result diagrams: 01/31/22 04:45 01/31/22 04:45 Labs: Lab Results 01/31/22 01/31/22 01/31/22 Range/Units 04:45 04:45 04:45 WBC 10.1 (4.5-11.0) X10^3/uL RBC 4.58 (4.0-5.2) X10^6/uL Hgb 13.4 (12.0-16.0) g/dL Hct 38.1 (36-46) % MCV 83.3 (80-100) fL MCH 29.2 (26-34) PG MCHC 35.1 (30-36) % RDW 13.6 (11.6-14.8) % Plt Count 244 (150-400) X10^3/uL Neut % (Auto) 75.2 H (50-75) % Lymph % (Auto) 14.8 L (25-40) % [place] % (Auto) 7.0 (3-14) % Eos % (Auto) 1.6 L (2-4) % Baso % (Auto) 1.4 (0-2) % Neut # (Auto) 7600 H (4343-9177) /uL Lymph # (Auto) 1500 (9636-3017) /uL [place] # (Auto) 700 (0-900) /uL Eos # (Auto) 200 (0-450) /uL Baso # (Auto) 100 (0-100) /uL ESR (0-20) MM/HR PT 10.5 (10.1-12.7) SECONDS INR 0.9 (0.9-1.3) APTT 35 (26-36) SECONDS D-Dimer < 215 (<500) ng/ml Sodium 136 L (137-145) mmol/L Potassium 4.0 (3.4-5.1) mmol/L Chloride 103 (98-107) mmol/L Carbon Dioxide 27 (22-32) mmol/L BUN 17 (7-17) mg/dL Creatinine 0.82 (0.52-1.04) mg/dL Estimated GFR > 60 (>60) mL/min BUN/Creatinine Ratio 20.7 (6-22) Glucose 146 H (80-110) mg/dL Calcium 9.1 (8.4-10.2) mg/dL Total Bilirubin 0.4 (0.2-1.3) mg/dL AST 23 (14-36) IU/L ALT 18 (<35) IU/L Alkaline Phosphatase 100 (38-126) U/L Total Creatine Kinase 82 (30-135) U/L CK-MB (CK-2) TNP CK-MB (CK-2) Rel Index TNP Troponin I < 0.012 (0.01-0.034) ng/mL C-Reactive Protein (<1.0) mg/dL NT-Pro-B Natriuret Pep (<125) pg/mL Total Protein 7.2 (6.3-8.2) g/dL Albumin 4.1 (3.5-5.0) g/dL Globulin 3.1 (1.7-4.1) g/dL Albumin/Globulin Ratio 1.3 (1.0-2.8) Lipase 105 (23-300) U/L SARS-CoV-2 (PCR) (Negative) 01/31/22 01/31/22 01/31/22 Range/Units 04:45 04:45 04:45 WBC (4.5-11.0) X10^3/uL RBC (4.0-5.2) X10^6/uL Hgb (12.0-16.0) g/dL Hct (36-46) % MCV (80-100) fL MCH (26-34) PG MCHC (30-36) % RDW (11.6-14.8) % Plt Count (150-400) X10^3/uL Neut % (Auto) (50-75) % Lymph % (Auto) (25-40) % Kemper % (Auto) (3-14) % Eos % (Auto) (2-4) % Baso % (Auto) (0-2) % Neut # (Auto) (1990-2766) /uL Lymph # (Auto) (6863-8571) /uL Kemper # (Auto) (0-900) /uL Eos # (Auto) (0-450) /uL Baso # (Auto) (0-100) /uL ESR 19 (0-20) MM/HR PT (10.1-12.7) SECONDS INR (0.9-1.3) APTT (26-36) SECONDS D-Dimer (<500) ng/ml Sodium (137-145) mmol/L Potassium (3.4-5.1) mmol/L Chloride (98-107) mmol/L Carbon Dioxide (22-32) mmol/L BUN (7-17) mg/dL Creatinine (0.52-1.04) mg/dL Estimated GFR (>60) mL/min BUN/Creatinine Ratio (6-22) Glucose (80-110) mg/dL Calcium (8.4-10.2) mg/dL Total Bilirubin (0.2-1.3) mg/dL AST (14-36) IU/L ALT (<35) IU/L Alkaline Phosphatase (38-126) U/L Total Creatine Kinase (30-135) U/L CK-MB (CK-2) CK-MB (CK-2) Rel Index Troponin I (0.01-0.034) ng/mL C-Reactive Protein < 0.5 (<1.0) mg/dL NT-Pro-B Natriuret Pep 220 H (<125) pg/mL Total Protein (6.3-8.2) g/dL Albumin (3.5-5.0) g/dL Globulin (1.7-4.1) g/dL Albumin/Globulin Ratio (1.0-2.8) Lipase (23-300) U/L SARS-CoV-2 (PCR) (Negative) 01/31/22 01/31/22 Range/Units 07:55 09:19 WBC (4.5-11.0) X10^3/uL RBC (4.0-5.2) X10^6/uL Hgb (12.0-16.0) g/dL Hct (36-46) % MCV (80-100) fL MCH (26-34) PG MCHC (30-36) % RDW (11.6-14.8) % Plt Count (150-400) X10^3/uL Neut % (Auto) (50-75) % Lymph % (Auto) (25-40) % Kemper % (Auto) (3-14) % Eos % (Auto) (2-4) % Baso % (Auto) (0-2) % Neut # (Auto) (9304-4061) /uL Lymph # (Auto) (7275-7016) /uL Kemper # (Auto) (0-900) /uL Eos # (Auto) (0-450) /uL Baso # (Auto) (0-100) /uL ESR (0-20) MM/HR PT (10.1-12.7) SECONDS INR (0.9-1.3) APTT (26-36) SECONDS D-Dimer (<500) ng/ml Sodium (137-145) mmol/L Potassium (3.4-5.1) mmol/L Chloride (98-107) mmol/L Carbon Dioxide (22-32) mmol/L BUN (7-17) mg/dL Creatinine (0.52-1.04) mg/dL Estimated GFR (>60) mL/min BUN/Creatinine Ratio (6-22) Glucose (80-110) mg/dL Calcium (8.4-10.2) mg/dL Total Bilirubin (0.2-1.3) mg/dL AST (14-36) IU/L ALT (<35) IU/L Alkaline Phosphatase (38-126) U/L Total Creatine Kinase (30-135) U/L CK-MB (CK-2) CK-MB (CK-2) Rel Index Troponin I < 0.012 (0.01-0.034) ng/mL C-Reactive Protein (<1.0) mg/dL NT-Pro-B Natriuret Pep (<125) pg/mL Total Protein (6.3-8.2) g/dL Albumin (3.5-5.0) g/dL Globulin (1.7-4.1) g/dL Albumin/Globulin Ratio (1.0-2.8) Lipase (23-300) U/L SARS-CoV-2 (PCR) Negative (Negative) Urine Dip Bedside Urine Glucose Negative Bedside Urine Bilirubin - Negative Bedside Urine Ketone - Negative Urine Specific [place] 1.010 Bedside Urine Occult Blood - Negative Bedside Urine pH 6.0 Bedside Urine Protein - Negative Bedside Urine Urobilinogen - Negative Bedside Urine Nitrite - Negative Bedside Urine Leukocytes - Negative Esterase Imaging Data CT scan - chest: Radiologist's Impression: No aortic aneurysm or dissection. No pulmonary embolism. Trace pericardial effusion ECG Data Interpretation: [0443] EKG is normal sinus rhythm rate [66 ] and free of any signs of ischemia or ectopy. No ST segmental elevation or depression. No T wave inversions <Ailyn Louise DO - Last Filed: 01/31/22 11:13> Lab Data Labs: Lab Results 01/31/22 01/31/22 01/31/22 Range/Units 04:45 04:45 04:45 WBC 10.1 (4.5-11.0) X10^3/uL RBC 4.58 (4.0-5.2) X10^6/uL Hgb 13.4 (12.0-16.0) g/dL Hct 38.1 (36-46) % MCV 83.3 (80-100) fL MCH 29.2 (26-34) PG MCHC 35.1 (30-36) % RDW 13.6 (11.6-14.8) % Plt Count 244 (150-400) X10^3/uL Neut % (Auto) 75.2 H (50-75) % Lymph % (Auto) 14.8 L (25-40) % Kemper % (Auto) 7.0 (3-14) % Eos % (Auto) 1.6 L (2-4) % Baso % (Auto) 1.4 (0-2) % Neut # (Auto) 7600 H (6271-8688) /uL Lymph # (Auto) 1500 (0830-3326) /uL Kemper # (Auto) 700 (0-900) /uL Eos # (Auto) 200 (0-450) /uL Baso # (Auto) 100 (0-100) /uL ESR (0-20) MM/HR PT 10.5 (10.1-12.7) SECONDS INR 0.9 (0.9-1.3) APTT 35 (26-36) SECONDS D-Dimer < 215 (<500) ng/ml Sodium 136 L (137-145) mmol/L Potassium 4.0 (3.4-5.1) mmol/L Chloride 103 (98-107) mmol/L Carbon Dioxide 27 (22-32) mmol/L BUN 17 (7-17) mg/dL Creatinine 0.82 (0.52-1.04) mg/dL Estimated GFR > 60 (>60) mL/min BUN/Creatinine Ratio 20.7 (6-22) Glucose 146 H (80-110) mg/dL Calcium 9.1 (8.4-10.2) mg/dL Total Bilirubin 0.4 (0.2-1.3) mg/dL AST 23 (14-36) IU/L ALT 18 (<35) IU/L Alkaline Phosphatase 100 (38-126) U/L Total Creatine Kinase 82 (30-135) U/L CK-MB (CK-2) TNP CK-MB (CK-2) Rel Index TNP Troponin I < 0.012 (0.01-0.034) ng/mL C-Reactive Protein (<1.0) mg/dL NT-Pro-B Natriuret Pep (<125) pg/mL Total Protein 7.2 (6.3-8.2) g/dL Albumin 4.1 (3.5-5.0) g/dL Globulin 3.1 (1.7-4.1) g/dL Albumin/Globulin Ratio 1.3 (1.0-2.8) Lipase 105 (23-300) U/L SARS-CoV-2 (PCR) (Negative) 01/31/22 01/31/22 01/31/22 Range/Units 04:45 04:45 04:45 WBC (4.5-11.0) X10^3/uL RBC (4.0-5.2) X10^6/uL Hgb (12.0-16.0) g/dL Hct (36-46) % MCV (80-100) fL MCH (26-34) PG MCHC (30-36) % RDW (11.6-14.8) % Plt Count (150-400) X10^3/uL Neut % (Auto) (50-75) % Lymph % (Auto) (25-40) % Kemper % (Auto) (3-14) % Eos % (Auto) (2-4) % Baso % (Auto) (0-2) % Neut # (Auto) (0070-9733) /uL Lymph # (Auto) (6283-9430) /uL Kemper # (Auto) (0-900) /uL Eos # (Auto) (0-450) /uL Baso # (Auto) (0-100) /uL ESR 19 (0-20) MM/HR PT (10.1-12.7) SECONDS INR (0.9-1.3) APTT (26-36) SECONDS D-Dimer (<500) ng/ml Sodium (137-145) mmol/L Potassium (3.4-5.1) mmol/L Chloride (98-107) mmol/L Carbon Dioxide (22-32) mmol/L BUN (7-17) mg/dL Creatinine (0.52-1.04) mg/dL Estimated GFR (>60) mL/min BUN/Creatinine Ratio (6-22) Glucose (80-110) mg/dL Calcium (8.4-10.2) mg/dL Total Bilirubin (0.2-1.3) mg/dL AST (14-36) IU/L ALT (<35) IU/L Alkaline Phosphatase (38-126) U/L Total Creatine Kinase (30-135) U/L CK-MB (CK-2) CK-MB (CK-2) Rel Index Troponin I (0.01-0.034) ng/mL C-Reactive Protein < 0.5 (<1.0) mg/dL NT-Pro-B Natriuret Pep 220 H (<125) pg/mL Total Protein (6.3-8.2) g/dL Albumin (3.5-5.0) g/dL Globulin (1.7-4.1) g/dL Albumin/Globulin Ratio (1.0-2.8) Lipase (23-300) U/L SARS-CoV-2 (PCR) (Negative) 01/31/22 01/31/22 Range/Units 07:55 09:19 WBC (4.5-11.0) X10^3/uL RBC (4.0-5.2) X10^6/uL Hgb (12.0-16.0) g/dL Hct (36-46) % MCV (80-100) fL MCH (26-34) PG MCHC (30-36) % RDW (11.6-14.8) % Plt Count (150-400) X10^3/uL Neut % (Auto) (50-75) % Lymph % (Auto) (25-40) % [place] % (Auto) (3-14) % Eos % (Auto) (2-4) % Baso % (Auto) (0-2) % Neut # (Auto) (4557-5520) /uL Lymph # (Auto) (8438-2140) /uL [place] # (Auto) (0-900) /uL Eos # (Auto) (0-450) /uL Baso # (Auto) (0-100) /uL ESR (0-20) MM/HR PT (10.1-12.7) SECONDS INR (0.9-1.3) APTT (26-36) SECONDS D-Dimer (<500) ng/ml Sodium (137-145) mmol/L Potassium (3.4-5.1) mmol/L Chloride (98-107) mmol/L Carbon Dioxide (22-32) mmol/L BUN (7-17) mg/dL Creatinine (0.52-1.04) mg/dL Estimated GFR (>60) mL/min BUN/Creatinine Ratio (6-22) Glucose (80-110) mg/dL Calcium (8.4-10.2) mg/dL Total Bilirubin (0.2-1.3) mg/dL AST (14-36) IU/L ALT (<35) IU/L Alkaline Phosphatase (38-126) U/L Total Creatine Kinase (30-135) U/L CK-MB (CK-2) CK-MB (CK-2) Rel Index Troponin I < 0.012 (0.01-0.034) ng/mL C-Reactive Protein (<1.0) mg/dL NT-Pro-B Natriuret Pep (<125) pg/mL Total Protein (6.3-8.2) g/dL Albumin (3.5-5.0) g/dL Globulin (1.7-4.1) g/dL Albumin/Globulin Ratio (1.0-2.8) Lipase (23-300) U/L SARS-CoV-2 (PCR) Negative (Negative) Urine Dip Bedside Urine Glucose Negative Bedside Urine Bilirubin - Negative Bedside Urine Ketone - Negative Urine Specific [place] 1.010 Bedside Urine Occult Blood - Negative Bedside Urine pH 6.0 Bedside Urine Protein - Negative Bedside Urine Urobilinogen - Negative Bedside Urine Nitrite - Negative Bedside Urine Leukocytes - Negative Esterase MDM Narrative Medical decision making narrative: Patient signed out to me by Dr. Martinez. If seen evaluated patient myself. A complete like esophageal discomfort. She says this is different from the chest pain that she was experiencing earlier. But she is overall comfortable without chest pain. She has 2- troponins no EKG changes. High heart score symptoms are concerning. Dr. Wagner, updated on patient's symptoms test results, accepts patient for observation and stress test today Discharge Plan Departure Patient Disposition: Admitted as Observation Clinical Impression: Chest pain Admit Date/Time: 01/31/22 09:20 Admit Provider: Gary Wagner
--- NOTE | 2022-01-31 04:55 | DI.RAD.S_ITS ---
PROCEDURE: XR CHEST 1V INDICATIONS: chest pain TECHNIQUE: One view of the chest was acquired. COMPARISON: [facility], CT, CT ANGIO CHEST ABDOMEN PELVIS, 01/31/2022, 5:49. [facility], CR, XR CHEST 1V, 10/21/2021, 22:04. [facility], CR, XR CHEST 2V, 06/06/2021, 16:19. FINDINGS: Surgical changes and devices: None. Lungs and pleura: Lungs are clear. No pleural effusions or pneumothorax. Mediastinum: Mediastinal contours appear normal. Heart size is normal. Bones and chest wall: No suspicious bony lesions. Overlying soft tissues appear unremarkable. IMPRESSION: No acute cardiopulmonary abnormality. This report is concordant with the overnight preliminary interpretation. Dictated by: Bishnu Grullon M.D. on 01/31/2022 at 7:32 Approved by: Bishnu Grullon M.D. on 01/31/2022 at 7:34
[2022-01-31] MEDS: SODIUM CHLORIDE 0.9% 1,000 ML 150 ML IV (05:03)
[2022-01-31] MEDS: ASPIRIN 81 MG CHEW TAB 324 MG PO (05:03)
[2022-01-31] MEDS: NITROGLYCERIN 0.4 MG SL TAB SL ×3 (05:06→05:23)
[2022-01-31 05:17] LABS: Add Manual Diff / Slide Review NO; Basophils Absolute Auto 100 /uL (0-100); Basophils Percent Auto 1.4 % (0-2); Eosinophils Absolute Auto 200 /uL (0-450); Eosinophils Percent Auto 1.6 % (2-4); Hematocrit 38.1 % (36-46); Hemoglobin 13.4 g/dL (12.0-16.0); Lymphocytes Absolute Auto 1500 /uL (1100-4500); Lymphocytes Percent Auto 14.8 % (25-40); Mean Corpuscular HGB Conc 35.1 % (30-36); Mean Corpuscular Hemoglobin 29.2 PG (26-34); Mean Corpuscular Volume 83.3 fL (80-100); Monocytes Absolute Auto 700 /uL (0-900); Neutrophils Absolute Auto 7600 /uL (1500-7000); Neutrophils Percent Auto 75.2 % (50-75); Platelet Count 244 X10^3/uL (150-400); Red Blood Cell Count 4.58 X10^6/uL (4.0-5.2); Red Cell Distribution Width 13.6 % (11.6-14.8); White Blood Cell Count 10.1 X10^3/uL (4.5-11.0)
[2022-01-31 05:22] LABS: Alanine Aminotransferase 18 IU/L (<35); Albumin 4.1 g/dL (3.5-5.0); Albumin Globulin Ratio 1.3 (1.0-2.8); Alkaline Phosphatase 100 U/L (38-126); Aspartate Aminotransferase 23 IU/L (14-36); BUN Creatinine Ratio 20.7 (6-22); Bilirubin Total 0.4 mg/dL (0.2-1.3); Blood Urea Nitrogen 17 mg/dL (7-17); Calcium 9.1 mg/dL (8.4-10.2); Carbon Dioxide 27 mmol/L (22-32); Chloride 103 mmol/L (98-107); Creatine Kinase 82 U/L (30-135); Estimated Glomerular Filt Rate > 60 mL/min (>60); Globulin 3.1 g/dL (1.7-4.1); Glucose 146 mg/dL (80-110); HEMOLYSIS < 15 (0-50); Lipase 105 U/L (23-300); Sodium 136 mmol/L (137-145); Total Protein 7.2 g/dL (6.3-8.2)
[2022-01-31 05:23] LABS: INR 0.9 (0.9-1.3); Prothrombin Time 10.5 SECONDS (10.1-12.7)
[2022-01-31 05:26] LABS: PTT Partial Thromboplastin Tim 35 SECONDS (26-36)
[2022-01-31 05:29] LABS: D Dimer < 215 ng/ml (<500)
[2022-01-31 05:31] LABS: NT-proBNP (BNP-Adult 18+) 220 pg/mL (<125)
[2022-01-31 05:34] LABS: Troponin I < 0.012 ng/mL (0.01-0.034)
--- NOTE | 2022-01-31 05:37 | DI.CT.S_ITS ---
PROCEDURE: CT ANGIO CHEST ABDOMEN PELVIS INDICATIONS: chest pain, radiation to neck/back, dissection protocol TECHNIQUE: Precontrast 5 mm thick sections acquired from the lung apices to the iliac crests. After the administration of intravenous contrast, 2.5 mm thick sections again acquired from the lung apices to the iliac crests. Maximum intensity projection (MIP) oblique sagittal and coronal reformats were then acquired. For radiation dose reduction, the following was used: automated exposure control. COMPARISON: [facility], CT, CT KIDNEY URETER BLADDER (KUB), 11/10/2021, 15:53. FINDINGS: Image quality: Excellent. AORTA: No acute aortic syndrome. No aortic dissection. No aneurysm. Mild calcified plaque at the aortic arch. CHEST: Lungs and pleura: No acute airspace opacities. Right middle lobe pulmonary nodule measuring 0.3 cm, (5/38). No pleural effusions or pneumothorax. Central and peripheral airways are patent and normal in caliber. Mediastinum: Heart size is normal. Trace pericardial effusion. No mediastinal or hilar adenopathy by size criteria. Central pulmonary arteries are normal in size. No pulmonary embolism. Esophagus is normal in caliber. Small hiatal hernias. Bones and chest wall: No axillary adenopathy by size criteria. Subcentimeter thyroid nodules. Right thyroid nodule measuring 0.8 cm with calcifications. No suspicious bony lesions. No vertebral body compression fractures. ABDOMEN: Vasculature: Celiac trunk and mesenteric arteries are patent. 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 Mild calcified plaque in the abdominal aorta. Solid organs: Liver is normal in size and enhancement. Gallbladder is unremarkable. Biliary system is non dilated. Pancreas enhances normally. Spleen is normal in size and enhancement. No adrenal nodules. Both kidneys are normal in size and enhancement, without hydronephrosis. Peritoneum and bowel: No free fluid or air. Bowel loops are normal in caliber and wall thickness. Small duodenal diverticulum. The appendix is not identified. Nodes and vessels: No retroperitoneal or mesenteric adenopathy by size criteria. Inferior vena cava is normal in morphology. Miscellaneous: No ventral hernias. PELVIS: Genitourinary: Bladder wall thickness is normal. Anteverted uterus. Miscellaneous: No inguinal hernias or adenopathy. No ventral hernias. Bones: No suspicious bony lesions. No vertebral body compression fractures. Moderate DDD. Mild scoliosis. Degenerative change at the pubic symphysis. IMPRESSION: 1. No aortic dissection. No pulmonary embolism. 2. Trace pericardial effusion. 3. No free fluid in the abdomen or pelvis. This report is concordant with the overnight preliminary interpretation Dictated by: Bishnu Grullon M.D. on 01/31/2022 at 7:34 Approved by: Bishnu Grullon M.D. on 01/31/2022 at 7:49
[2022-01-31 05:47] LABS: C-Reactive Protein Quant < 0.5 mg/dL (<1.0)
[2022-01-31 05:58] LABS: Erythrocyte Sedimentation Rate 19 MM/HR (0-20)
[2022-01-31] MEDS: PANTOPRAZOLE 40 MG VIAL IV (08:01)
[2022-01-31 08:31] LABS: Troponin I < 0.012 ng/mL (0.01-0.034)
[2022-01-31 10:07] LABS: COVID19 -Nasal RAPID Negative (Negative)
--- NOTE | 2022-01-31 11:09 | P.HP_ITS ---
History of Present Illness History of Present Illness Date Patient Seen: 01/31/22 Time Patient Seen: 11:09 Date of Onset of Symptoms: 01/31/22 Chief complaint: pain chest and back Narrative: 71 F with PMH of DM2, HTN, HLD who presented to the ER with chest pain. Her pain was substernal and pressure like, constant. Nothing seemed to make it better or worse until arrival in the ER around 4:30 AM with improvement after nitro. There was radiation into her back and neck, but no arm pain. She denied palpitations, nausea, vomiting, diaphoresis. She denies any recent fever, chills, sore throat, nasal congestion, runny nose, decreased smell or taste. She does have some prior GERD in the past, no longer takes PPI. In the ER, patient had negative troponins x2. BP was borderline high but remainder of vitals were unremarakble. CXR was unremarkable. CTA chest for possible dissection was also unremarkable. EKG showed non-specific T-wave inv ersion only in aVL stable on repeat without dynamic changes. HEART score placed patient at intermediate risk. Patient was admitted for stress testing. Patient History Medical History Diabetes type 2, controlled Essential hypertension Hyperlipidemia Surgical History No pertinent past surgical history Family & Social History Family History Father Kidney failure CAD (coronary artery disease) Mother Alzheimer's dementia Brother CAD (coronary artery disease) Social History: household members spouse Safety & Behavioral: Feels Safe in Current Yes Environment Tobacco & Substance use: Smoking Status Never smoker alcohol intake current Substance Use Type does not use Meds Home Medications and Allergies Home Medications Medication Instructions Recorded Confirmed Type sertraline 100 mg tablet 100 mg PO QDAY ##0 04/22/11 01/31/22 History simvastatin 40 mg tablet 40 mg PO QDAY ##0 04/22/11 01/31/22 History amlodipine 5 mg tablet 5 mg PO DAILY 10/22/21 01/31/22 History bupropion HCl 300 mg 24 hr tablet, 300 mg PO QAM 10/22/21 01/31/22 History extended release metformin 500 mg tablet,extended 500 mg PO DAILY 10/22/21 01/31/22 History release 24 hr pantoprazole 20 mg tablet,delayed 20 mg PO DAILY 30 days #30 tabs 01/31/22 Rx release Allergies Allergy/AdvReac Type Severity Reaction Status Date / Time bacitracin Allergy Intermediate OINTMENT Verified 01/31/22 11:31 USED ON EYE AND CAUSED A RASH LOCALIZED neomycin Allergy Intermediate SKIN Verified 01/31/22 11:31 [From Neosporin + Pain HATFIELD AND Relief] BLISTERS polymyxin B Allergy Intermediate SKIN Verified 01/31/22 11:31 [From Neosporin + Pain HATFIELD AND Relief] BLISTERS pramoxine Allergy Intermediate SKIN Verified 01/31/22 11:31 [From Neosporin + Pain HATFIELD AND Relief] BLISTERS Review of Systems Review of Systems Narrative: All other systems reviewed with the patient and are negative unless otherwise stated. Exam Vital Signs (past 8 hours): - 01/31/22 04:35 01/31/22 04:42 01/31/22 05:06 Temperature 98.3 F Pulse Rate 103 H 68 71 Respiratory Rate 20 20 Blood Pressure 103/55 L 160/68 H Pulse Oximetry 98 99 Oxygen Delivery Method Room Air Oxygen Flow Rate 01/31/22 05:11 01/31/22 05:23 01/31/22 05:00 Temperature Pulse Rate 73 65 Respiratory Rate Blood Pressure 131/63 117/61 160/68 H Pulse Oximetry Oxygen Delivery Method Oxygen Flow Rate 01/31/22 05:00 01/31/22 05:10 01/31/22 05:10 Temperature Pulse Rate 65 76 Respiratory Rate 18 22 Blood Pressure 131/63 Pulse Oximetry 98 97 Oxygen Delivery Method Oxygen Flow Rate 01/31/22 05:15 01/31/22 05:15 01/31/22 05:20 Temperature Pulse Rate 73 Respiratory Rate 20 Blood Pressure 111/57 L 117/61 Pulse Oximetry 97 Oxygen Delivery Method Oxygen Flow Rate 01/31/22 05:20 01/31/22 05:25 01/31/22 05:25 Temperature Pulse Rate 69 66 Respiratory Rate 21 22 Blood Pressure 134/61 Pulse Oximetry 96 97 Oxygen Delivery Method Oxygen Flow Rate 01/31/22 05:30 01/31/22 05:30 01/31/22 05:35 Temperature Pulse Rate 73 Respiratory Rate 21 Blood Pressure 117/53 L 115/57 L Pulse Oximetry 97 Oxygen Delivery Method Oxygen Flow Rate 01/31/22 05:35 01/31/22 05:40 01/31/22 05:40 Temperature Pulse Rate 67 66 Respiratory Rate 25 H 20 Blood Pressure 119/67 Pulse Oximetry 97 98 Oxygen Delivery Method Oxygen Flow Rate 01/31/22 05:45 01/31/22 05:45 01/31/22 06:06 Temperature Pulse Rate 65 81 Respiratory Rate 22 Blood Pressure 121/62 Pulse Oximetry 97 98 Oxygen Delivery Method Oxygen Flow Rate 01/31/22 06:07 01/31/22 06:07 01/31/22 06:10 Temperature Pulse Rate 71 Respiratory Rate 16 Blood Pressure 153/70 H 142/66 H Pulse Oximetry 99 Oxygen Delivery Method Oxygen Flow Rate 01/31/22 06:10 01/31/22 06:15 01/31/22 06:15 Temperature Pulse Rate 65 63 Respiratory Rate 17 18 Blood Pressure 128/64 Pulse Oximetry 99 99 Oxygen Delivery Method Oxygen Flow Rate 01/31/22 06:20 01/31/22 06:20 01/31/22 06:25 Temperature Pulse Rate 62 Respiratory Rate 17 Blood Pressure 140/69 135/68 Pulse Oximetry 97 Oxygen Delivery Method Oxygen Flow Rate 01/31/22 06:25 01/31/22 06:30 01/31/22 06:30 Temperature Pulse Rate 61 61 Respiratory Rate 17 15 Blood Pressure 136/74 Pulse Oximetry 97 97 Oxygen Delivery Method Oxygen Flow Rate 01/31/22 06:35 01/31/22 06:35 01/31/22 06:40 Temperature Pulse Rate 62 Respiratory Rate 16 Blood Pressure 137/70 132/67 Pulse Oximetry 97 Oxygen Delivery Method Oxygen Flow Rate 01/31/22 06:40 01/31/22 06:45 01/31/22 06:45 Temperature Pulse Rate 61 61 Respiratory Rate 15 15 Blood Pressure 138/68 Pulse Oximetry 97 97 Oxygen Delivery Method Oxygen Flow Rate 01/31/22 06:50 01/31/22 06:50 01/31/22 06:55 Temperature Pulse Rate 61 Respiratory Rate 14 Blood Pressure 137/67 147/68 H Pulse Oximetry 98 Oxygen Delivery Method Oxygen Flow Rate 01/31/22 06:55 01/31/22 07:00 01/31/22 07:00 Temperature Pulse Rate 61 63 Respiratory Rate 16 19 Blood Pressure 127/67 Pulse Oximetry 98 99 Oxygen Delivery Method Oxygen Flow Rate 01/31/22 07:52 01/31/22 08:00 01/31/22 08:30 Temperature Pulse Rate 65 63 62 Respiratory Rate 27 H 16 Blood Pressure Pulse Oximetry 99 99 98 Oxygen Delivery Method Oxygen Flow Rate 01/31/22 09:00 01/31/22 10:45 01/31/22 10:45 Temperature Pulse Rate 61 70 Respiratory Rate 16 Blood Pressure 130/66 Pulse Oximetry 98 98 98 Oxygen Delivery Method Room Air Oxygen Flow Rate 0 0 Oxygen Delivery Method Room Air Oxygen Flow Rate 0 Narrative Exam Narrative: General:? Patient is well developed and well nourished, in no distress at this time. HEENT:? Normocephalic, atraumatic, extraocular muscles intact, oral pharynx is clear and mucous membranes are moist. Neck: supple and symmetric, trachea is midline, no cervical adenopathy. Negative for JVD Chest:? Normal AP diameter and contour without kyphoscoliosis, no tachypnea, equal chest rise bilaterally. Lungs:? CTA b/l no wheezing rhonchi or rales. Cardio:?RRR no m/r/g. Abdomen: S NT ND. No CVA tenderness. Musculoskeletal:? Muscle strength and tone are equal within normal limits, no deformity. Extremities: No edema or joint effusions. No cyanosis or clubbing. Skin:? Pale,? Warm to touch,dry and intact without rashes, ulcerations or pe techiae.? Neuro:? Alert and orientated x3,? sensation to touch intact in all extremities, no gross deficits noted of cranial nerves. Psych:? Patient has a well-kept appearance, appropriate affect, mental status attitude thought context and judgment are appropriate for age. Objective ECG Impression: NSR, TWI aVL only, no other ST or T wave findings. As interpreted by me. Labs Result Diagrams: 01/31/22 04:45 01/31/22 04:45 Labs: Laboratory Results - last 24 hr 01/31/22 01/31/22 01/31/22 04:45 04:45 04:45 WBC 10.1 RBC 4.58 Hgb 13.4 Hct 38.1 MCV 83.3 MCH 29.2 MCHC 35.1 RDW 13.6 Plt Count 244 Neut % (Auto) 75.2 H Lymph % (Auto) 14.8 L [place] % (Auto) 7.0 Eos % (Auto) 1.6 L Baso % (Auto) 1.4 Neut # (Auto) 7600 H Lymph # (Auto) 1500 [place] # (Auto) 700 Eos # (Auto) 200 Baso # (Auto) 100 ESR PT 10.5 INR 0.9 APTT 35 D-Dimer < 215 Sodium 136 L Potassium 4.0 Chloride 103 Carbon Dioxide 27 BUN 17 Creatinine 0.82 Estimated GFR > 60 BUN/Creatinine Ratio 20.7 Glucose 146 H Calcium 9.1 Total Bilirubin 0.4 AST 23 ALT 18 Alkaline Phosphatase 100 Total Creatine Kinase 82 CK-MB (CK-2) TNP CK-MB (CK-2) Rel Index TNP Troponin I < 0.012 C-Reactive Protein NT-Pro-B Natriuret Pep Total Protein 7.2 Albumin 4.1 Globulin 3.1 Albumin/Globulin Ratio 1.3 Lipase 105 SARS-CoV-2 (PCR) 01/31/22 01/31/22 01/31/22 04:45 04:45 04:45 WBC RBC Hgb Hct MCV MCH MCHC RDW Plt Count Neut % (Auto) Lymph % (Auto) [place] % (Auto) Eos % (Auto) Baso % (Auto) Neut # (Auto) Lymph # (Auto) [place] # (Auto) Eos # (Auto) Baso # (Auto) ESR 19 PT INR APTT D-Dimer Sodium Potassium Chloride Carbon Dioxide BUN Creatinine Estimated GFR BUN/Creatinine Ratio Glucose Calcium Total Bilirubin AST ALT Alkaline Phosphatase Total Creatine Kinase CK-MB (CK-2) CK-MB (CK-2) Rel Index Troponin I C-Reactive Protein < 0.5 NT-Pro-B Natriuret Pep 220 H Total Protein Albumin Globulin Albumin/Globulin Ratio Lipase SARS-CoV-2 (PCR) 01/31/22 01/31/22 07:55 09:19 WBC RBC Hgb Hct MCV MCH MCHC RDW Plt Count Neut % (Auto) Lymph % (Auto) [place] % (Auto) Eos % (Auto) Baso % (Auto) Neut # (Auto) Lymph # (Auto) [place] # (Auto) Eos # (Auto) Baso # (Auto) ESR PT INR APTT D-Dimer Sodium Potassium Chloride Carbon Dioxide BUN Creatinine Estimated GFR BUN/Creatinine Ratio Glucose Calcium Total Bilirubin AST ALT Alkaline Phosphatase Total Creatine Kinase CK-MB (CK-2) CK-MB (CK-2) Rel Index Troponin I < 0.012 C-Reactive Protein NT-Pro-B Natriuret Pep Total Protein Albumin Globulin Albumin/Globulin Ratio Lipase SARS-CoV-2 (PCR) Negative Assessment & Plan Assessment & Plan narrative: 1. Chest pain - EKG-isolated TWI, non-specific findings. - Stress testing ordered for today - NPO for now, diet after stress - Depending on results, consider TTE - COVID-19. 2. HTN - Continue home medications 3. HLD - continue home medications 4. DM2 - can continue home medications, glucose 146 on admission. Code: Full, surrogate decision maker is patient's spouse DVT: low risk patient, she is ambulatory Dispo: Admit observation, possible discharge home same day if stress testing is unremarkable. COVID-19 COVID-19 status: Negative Time Spent With Patient Critical Care time: I spent a total of [] minutes of critical care time on this patient's care today; this time is exclusive of procedural time. Quality MIPS - Admit I confirm the patient?s Advance Care Plan is present, Code status is documented, Surrogate decision maker is in patient?s record [If Yes, STOP here]: Yes
--- NOTE | 2022-01-31 12:39 | PC.NURSE ---
Addendum entered by Fara Henderson R.N. 01/31/22 18:32: 1832 - Patient received all discharge teaching by Tej Garzon RN. Taken out of building in wheelchair with all paperwork and belongings by nursing staff. Addendum entered by Fara Henderson R.N. 01/31/22 18:26: 1826 - Received discharge order for patient. Float nurse Tej in with patient doing discharge teaching and paperwork and IV and tele being removed by [facility]. Original Note: Patient brought up from ED to room 227, then taken down for stress test by IR. Brought back to room for admission. Alert and oriented with pleasant affect. Oriented to room and call light. Denies chest pain or cardiac symptoms. Placed on telemetry per orders. Denies needs at this time. Call light within reach.
--- NOTE | 2022-01-31 18:16 | PM.DS.1 ---
History of Present Illness History of Present Illness Date Patient Seen: 01/31/22 Time Patient Seen: 18:16 Date of Onset of Symptoms: 01/31/22 Chief complaint: pain chest and back Narrative: 71 F with PMH of DM2, HTN, HLD who presented to the ER with chest pain. Her pain was substernal and pressure like, constant. Nothing seemed to make it better or worse until arrival in the ER around 4:30 AM with improvement after nitro. There was radiation into her back and neck, but no arm pain. She denied palpitations, nausea, vomiting, diaphoresis. She denies any recent fever, chills, sore throat, nasal congestion, runny nose, decreased smell or taste. She does have some prior GERD in the past, no longer takes PPI. In the ER, patient had negative troponins x2. BP was borderline high but remainder of vitals were unremarakble. CXR was unremarkable. CTA chest for possible dissection was also unremarkable. EKG showed non-specific T-wave inversion only in aVL stable on repeat without dynamic changes. HEART score placed patient at intermediate risk. Patient was admitted for stress testing. Discharge Providers Provider Date of admission: 01/31/22 09:20 Discharge Date: 01/31/22 Primary care physician: Aysha Fuller PA-C Discharge provider: Gary Wagner DO Summary Hospital Course Discharge Diagnosis: 1. Chest pain, globus sensation, possible GERD 2. HTN 3. HLD 4. DM2 Hospital Course: This is a 71 year old female with PMH of HTN, HLD, DM2 who was admitted after an episode of chest pain which improved markedly with nitro administration in the ER. She had intermediate risk based on HEART score and stress testing was performed. Stress testing was deemed low risk. She reported a globus sensation in her throat, and mild difficulty swallowing but was able to tolerate her meal after stress testing. She was started on a trial of pantoprazole and further follow up with her PCP is recommended for globus sensation if this persists. No medication changes are recommended at this time. Exam Vital Signs (past 8 hours): - 01/31/22 10:45 01/31/22 10:45 01/31/22 16:00 Temperature 97.8 F Pulse Rate 70 66 Respiratory Rate 16 18 Blood Pressure 130/66 139/71 Pulse Oximetry 98 98 98 Oxygen Delivery Method Room Air Oxygen Flow Rate 0 0 0 01/31/22 14:45 01/31/22 18:00 Temperature Pulse Rate Respiratory Rate Blood Pressure Pulse Oximetry 98 98 Oxygen Delivery Method Room Air Room Air Oxygen Flow Rate 0 0 Oxygen Delivery Method Room Air Oxygen Flow Rate 0 Narrative Exam Narrative: General:? Patient is well developed and well nourished, in no distress at this time. HEENT:? Normocephalic, atraumatic, extraocular muscles intact, oral pharynx is clear and mucous membranes are moist. Neck: supple and symmetric, trachea is midline, no cervical adenopathy. Negative for JVD Chest:? Normal AP diameter and contour without kyphoscoliosis, no tachypnea, equal chest rise bilaterally. Lungs:? CTA b/l no wheezing rhonchi or rales. Cardio:?RRR no m/r/g. Abdomen: S NT ND. No CVA tenderness. Musculoskeletal:? Muscle strength and tone are equal within normal limits, no deformity. Extremities: No edema or joint effusions. No cyanosis or clubbing. Skin:? Pale,? Warm to touch,dry and intact without rashes, ulcerations or petechiae.? Neuro:? Alert and orientated x3,? sensation to touch intact in all extremities, no gross deficits noted of cranial nerves. Psych:? Patient has a well-kept appearance, appropriate affect, mental status attitude thought context and judgment are appropriate for age. Objective Labs Result Diagrams: 01/31/22 04:45 01/31/22 04:45 Labs: Laboratory Results - last 24 hr 01/31/22 01/31/22 01/31/22 04:45 04:45 04:45 WBC 10.1 RBC 4.58 Hgb 13.4 Hct 38.1 MCV 83.3 MCH 29.2 MCHC 35.1 RDW 13.6 Plt Count 244 Neut % (Auto) 75.2 H Lymph % (Auto) 14.8 L [place] % (Auto) 7.0 Eos % (Auto) 1.6 L Baso % (Auto) 1.4 Neut # (Auto) 7600 H Lymph # (Auto) 1500 [place] # (Auto) 700 Eos # (Auto) 200 Baso # (Auto) 100 ESR PT 10.5 INR 0.9 APTT 35 D-Dimer < 215 Sodium 136 L Potassium 4.0 Chloride 103 Carbon Dioxide 27 BUN 17 Creatinine 0.82 Estimated GFR > 60 BUN/Creatinine Ratio 20.7 Glucose 146 H Calcium 9.1 Total Bilirubin 0.4 AST 23 ALT 18 Alkaline Phosphatase 100 Total Creatine Kinase 82 CK-MB (CK-2) TNP CK-MB (CK-2) Rel Index TNP Troponin I < 0.012 C-Reactive Protein NT-Pro-B Natriuret Pep Total Protein 7.2 Albumin 4.1 Globulin 3.1 Albumin/Globulin Ratio 1.3 Lipase 105 SARS-CoV-2 (PCR) 01/31/22 01/31/22 01/31/22 04:45 04:45 04:45 WBC RBC Hgb Hct MCV MCH MCHC RDW Plt Count Neut % (Auto) Lymph % (Auto) [place] % (Auto) Eos % (Auto) Baso % (Auto) Neut # (Auto) Lymph # (Auto) [place] # (Auto) Eos # (Auto) Baso # (Auto) ESR 19 PT INR APTT D-Dimer Sodium Potassium Chloride Carbon Dioxide BUN Creatinine Estimated GFR BUN/Creatinine Ratio Glucose Calcium Total Bilirubin AST ALT Alkaline Phosphatase Total Creatine Kinase CK-MB (CK-2) CK-MB (CK-2) Rel Index Troponin I C-Reactive Protein < 0.5 NT-Pro-B Natriuret Pep 220 H Total Protein Albumin Globulin Albumin/Globulin Ratio Lipase SARS-CoV-2 (PCR) 01/31/22 01/31/22 07:55 09:19 WBC RBC Hgb Hct MCV MCH MCHC RDW Plt Count Neut % (Auto) Lymph % (Auto) [place] % (Auto) Eos % (Auto) Baso % (Auto) Neut # (Auto) Lymph # (Auto) [place] # (Auto) Eos # (Auto) Baso # (Auto) ESR PT INR APTT D-Dimer Sodium Potassium Chloride Carbon Dioxide BUN Creatinine Estimated GFR BUN/Creatinine Ratio Glucose Calcium Total Bilirubin AST ALT Alkaline Phosphatase Total Creatine Kinase CK-MB (CK-2) CK-MB (CK-2) Rel Index Troponin I < 0.012 C-Reactive Protein NT-Pro-B Natriuret Pep Total Protein Albumin Globulin Albumin/Globulin Ratio Lipase SARS-CoV-2 (PCR) Negative PFSH Medical History Diabetes type 2, controlled Essential hypertension Hyperlipidemia Surgical History No pertinent past surgical history Family History Father Kidney failure CAD (coronary artery disease) Mother Alzheimer's dementia Brother CAD (coronary artery disease) Social History household members: spouse Smoking Status: Never smoker alcohol intake: current Discharge Plan Discharge Plan Patient Disposition: Home Provider Discharge Comment: You were admitted to the hospital with chest pain. This improved with nitro. You underwent stress testing which was normal. You were started on a trial of pantoprazole, which has been sent to [facility]. Try to follow up with your PCP next week to check on your symptoms and review hospitalization. Discharge orders & Medications Prescriptions: New pantoprazole 20 mg tablet,delayed release (DR/EC) 20 mg PO DAILY 30 Days Qty: 30 0RF Continued simvastatin 40 MG tablet 40 mg PO QDAY Qty: 0 sertraline 100 MG tablet 100 mg PO QDAY Qty: 0 amlodipine 5 mg Tablet 5 mg PO DAILY metformin 500 mg Tablet Extended Release 24 Hr 500 mg PO DAILY bupropion HCl 300 mg Tablet Extended Release 24 Hr 300 mg PO QAM Follow up/Referrals: Aysha Fuller, PA-C [Primary Care Provider] - Diet/Activity/Treatments Diet: Diet as Tolerated Activity: As tolerated Discharge Data Primary Care Provider: Aysha Fuller Attending Provider: Gary Wagner MIPS - Admit I confirm the patient?s Advance Care Plan is present, Code status is documented, Surrogate decision maker is in patient?s record [If Yes, STOP here]: Yes
--- NOTE | 2022-01-31 18:56 | DI.NM.S_ITS ---
DATE OF SERVICE: PROCEDURE: Exercise perfusion study. INDICATION: Chest pain with underlying diabetes mellitus, hypertension, and hyperlipidemia. RADIOPHARMACEUTICAL: 27.5 mCi technetium-99m Myoview IV was injected at stress and 9.8 mCi technetium-99m Myoview IV was injected at rest. CARDIAC STRESS: The patient underwent exercise perfusion study under the supervision of an attending staff. The patient walked on Hamlet protocol for 6 minutes and 4 seconds, achieved 93 percent of target heart rate with maximum heart rate 140 beats per minute. Baseline blood pressure 130/70 mmHg. Peak blood pressure 180/90 mmHg. Achieved 7 METs of workload. THIAGO -2 percent. No chest pain. Had some shortness of breath. Baseline rhythm was sinus. During peak exercise, there were some artifacts. However, in immediate recovery, no convincing ischemic changes seen. No significant arrhythmias other than rare PACs. RAW DATA: Breast shadow was seen. Increased subdiaphragmatic activity. GATED STUDY: Stress LV ejection fraction 87 percent without any obvious wall motion abnormalities. Resting end-diastolic volume not calculated; however, stress end-diastolic volume 63 mL. TID ratio 0.70, which is within normal limits. Lung/heart ratio 0.41, which is within normal limits. MYOCARDIAL PERFUSION: Resting supine images revealed a small size, mildly decreased perfusion of basal inferolateral wall and minimally decreased perfusion of anterior apex; however, the stress supine images revealed almost normal myocardial perfusion. No convincing ischemia or infarction pattern. CONCLUSION: I will call this study likely a normal myocardial perfusion study. No convincing ischemia or infarction pattern seen. Fair exercise tolerance. Normal hemodynamic response. Stress left ventricular ejection fraction 87 percent. No anginal symptoms. No significant arrhythmias seen. The patient had a perfusion study in May,; at that time, she had mildly decreased perfusion of apex which got resolved during prone images. At that time, also, she did not have any ischemia or infarction. At that time, she was able to walk on Hamlet protocol for 6 minutes and 1 second. GarrettAmelie - BRAXTON/darrius/SUYAPA doc#: [id number]/job#: [id number] dd: 01/31/2022 17:10:00 dt: 01/31/2022 18:45:00 DICTATING MD/COPIES TO: Naren Zapata MD COPIES MNE: BANDAR;
== END 2022-01-31 18:32 | disposition home or self-care (01) ==
LOC: ED 09:05 → AC 09:20 → ICU 09:39
PROVIDERS: Emergency Medicine; Admitting Provider Internal Medicine; Emergency Provider Emergency Medicine; PCP Student in an Organized Health Care Education/Training Program; Referring Provider Emergency Medicine; Visit Provider Internal Medicine
DX: R07.9 Chest pain, unspecified (principal); I10 Essential (primary) hypertension; E78.5 Hyperlipidemia, unspecified; E11.9 Type 2 diabetes mellitus without complications; Z79.84 Long term (current) use of oral hypoglycemic drugs; Z20.822 Contact with and (suspected) exposure to COVID-19
CPT/HCPCS: 36415; 71045; 71275; 74174; 78452; 80053; 81003; 82550; 82962; 83690; 83880; 84484; 85025; 85379; 85610; 85651; 85730; 86140; 87635; 93005; 93017; 96374; 99284; C9803; G0378; A9502; C9113; Q9967

== ENCOUNTER 2022-05-22 10:45 | Emergency (ER) | payer MEDICARE, OTHER, SELFPAY ==
[2022-01-31 12:27] VITALS: BMI 29.4
[2022-05-22 11:09] VITALS: BP 151/70; PULSE 74; RESP 16; TEMP 37.2; O2SAT 99; BMI 30.1
[2022-05-22 11:42] LABS: Bacteria Urine Many (>30); Culture Indicated Urine Specimen Cultured; RBC Urine 0-1/HPF (0-5/HPF); Squamous Epithelial Cell Urine 1-5 /HPF (0-5/HPF); WBC Urine 1-5/HPF (0-5/HPF)
--- NOTE | 2022-05-22 12:40 | ED.FEMALEGU ---
HPI - Female Genitourinary <David Cutler PA-C - Last Filed: 05/22/22 14:06> General Chief complaint: Upper Respiratory Symptoms Stated complaint: UTI/poss kidney infection lower LT back hurts t-1 Time Seen by Provider: 05/22/22 11:54 Source: patient Mode of arrival: Ambulatory History of Present Illness HPI Narrative: This is a 71-year-old female presents emergency department due to left flank pain onset yesterday. She denies any injury or abnormal bending or twisting. Patient states she is concerned as she has a history of reported pyelonephritis that required admission which initially presented as left flank pain without significant dysuria, hematuria, urinary frequency, or other similar symptoms. Patient states that her urine has appeared more cloudy over the last day. Related Data Home Medications Medication Instructions Recorded Confirmed sertraline 100 mg tablet 100 mg PO QDAY ##0 04/22/11 04/23/22 simvastatin 40 mg tablet 40 mg PO QDAY ##0 04/22/11 04/23/22 amlodipine 5 mg tablet 5 mg PO DAILY 10/22/21 04/23/22 bupropion HCl 300 mg 24 hr tablet, 300 mg PO QAM 10/22/21 04/23/22 extended release metformin 500 mg tablet,extended 500 mg PO DAILY 10/22/21 04/23/22 release 24 hr Allergies Allergy/AdvReac Type Severity Reaction Status Date / Time bacitracin Allergy Intermediate OINTMENT Verified 04/23/22 17:49 USED ON EYE AND CAUSED A RASH LOCALIZED neomycin Allergy Intermediate SKIN Verified 04/23/22 17:49 [From Neosporin + Pain HATFIELD AND Relief] BLISTERS polymyxin B Allergy Intermediate SKIN Verified 04/23/22 17:49 [From Neosporin + Pain HATFIELD AND Relief] BLISTERS pramoxine Allergy Intermediate SKIN Verified 04/23/22 17:49 [From Neosporin + Pain HATFIELD AND Relief] BLISTERS Review of Systems <David Cutler PA-C - Last Filed: 05/22/22 14:06> Review of Systems Narrative: GENERAL: Denies chills, fatigue, malaise, fever, sweats. HEENT: Denies sinus pain, ear pain, sore throat, difficulty swallowing, dizziness. RESPIRATORY: Denies dyspnea, cough, wheezing, hemoptysis, sputum. CARDIOVASCULAR: Denies chest pain, palpitations, orthopnea, edema, GASTROINTESTINAL: Denies nausea, vomiting, abdominal pain, diarrhea, constipation, melena. : Reports cloudy urine, Denies dysuria, frequency, incontinence, hematuria, urinary retention. MUSCULOSKELETAL: Reports left flank pain SKIN: Denies rash, skin lesions, or other NEUROLOGIC: Denies weakness, headache, numbness, change in speech, confusion, seizures, incoordination. PSYCHIATRIC: No concerning psychosocial issues. 12 point review of systems is negative except for those stated above Patient History <David Cutler PA-C - Last Filed: 05/22/22 14:06> Medical History Diabetes type 2, controlled Essential hypertension Hyperlipidemia Surgical History No pertinent past surgical history Family History Father Kidney failure CAD (coronary artery disease) Mother Alzheimer's dementia Brother CAD (coronary artery disease) Substance Use Type: does not use Exam <David Cutler PA-C - Last Filed: 05/22/22 14:06> Narrative Exam Narrative: GENERAL: Well-developed patient, in mild distress. HEAD: Atraumatic. Normocephalic. EYES: Pupils equal round and reactive. Extraocular motions intact. No scleral icterus. No injection or drainage. ENT: Nose without bleeding, purulent drainage. Throat without erythema, tonsillar hypertrophy or exudate. Airway patent. NECK: Trachea midline. Non tender CARDIOVASCULAR: Regular rate and rhythm without murmurs, gallops, or rubs. RESPIRATORY: Clear to auscultation. Breath sounds equal bilaterally. No wheezes, rales, or rhonchi. GASTROINTESTINAL: Abdomen soft, non-tender, nondistended. EXTREMITIES: No edema or joint tenderness. BACK: Nontender without deformity or crepitance. Left-sided CVA tenderness NEURO: AOx3. SKIN: No rash or erythema of visible areas Initial Vital Signs Initial Vital Signs: Vital Signs Temperature 98.9 F 05/22/22 11:09 Pulse Rate 74 05/22/22 11:09 Respiratory Rate 16 05/22/22 11:09 Blood Pressure 151/70 H 05/22/22 11:09 Pulse Oximetry 99 05/22/22 11:09 Oxygen Delivery Method 05/22/22 11:09 <Ailyn Louise DO - Last Filed: 05/27/22 07:15> Initial Vital Signs Initial Vital Signs: Vital Signs Temperature 98.9 F 05/22/22 11:09 Pulse Rate 74 05/22/22 11:09 Respiratory Rate 16 05/22/22 11:09 Blood Pressure 151/70 H 05/22/22 11:09 Pulse Oximetry 99 05/22/22 11:09 Oxygen Delivery Method 05/22/22 11:09 Course <David Cutler PA-C - Last Filed: 05/22/22 14:06> Orders Ordered: ED Orders 05/22/22 10:55 Urine Culture Stat Urine Microscopic Stat 05/22/22 13:00 CBC Auto Diff [Complete Blood Count AUTO DIFF] Stat CMP [Comprehensive Metabolic Panel] Stat Vital Signs Vital signs: Vital Signs - 8 hr 05/22/22 11:09 Temperature 98.9 F Pulse Rate 74 Respiratory Rate 16 Blood Pressure 151/70 H Pulse Oximetry 99 Oxygen Delivery Method Room Air <Ailyn Louise DO - Last Filed: 05/27/22 07:15> Orders Ordered: ED Orders 05/22/22 10:55 Urine Culture Stat Urine Microscopic Stat 05/22/22 13:00 CBC Auto Diff [Complete Blood Count AUTO DIFF] Stat CMP [Comprehensive Metabolic Panel] Stat Vital Signs Vital signs: Vital Signs - 8 hr 05/22/22 11:09 Temperature 98.9 F Pulse Rate 74 Respiratory Rate 16 Blood Pressure 151/70 H Pulse Oximetry 99 Oxygen Delivery Method Room Air MDM - Female Genitourinary <David Cutler PA-C - Last Filed: 05/22/22 14:06> Lab Data Result diagrams: 05/22/22 13:00 05/22/22 13:00 Labs: Lab Results 05/22/22 05/22/22 05/22/22 Range/Units 10:55 13:00 13:00 WBC 8.7 (4.5-11.0) X10^3/uL RBC 4.52 (4.0-5.2) X10^6/uL Hgb 12.7 (12.0-16.0) g/dL Hct 38.1 (36-46) % MCV 84.3 (80-100) fL MCH 28.1 (26-34) PG MCHC 33.3 (30-36) % RDW 14.3 (11.6-14.8) % Plt Count 259 (150-400) X10^3/uL Neut % (Auto) 71.8 (50-75) % Lymph % (Auto) 18.5 L (25-40) % [place] % (Auto) 7.2 (3-14) % Eos % (Auto) 2.1 (2-4) % Baso % (Auto) 0.4 (0-2) % Neut # (Auto) 6200 (2062-7634) /uL Lymph # (Auto) 1600 (6006-5326) /uL [place] # (Auto) 600 (0-900) /uL Eos # (Auto) 200 (0-450) /uL Baso # (Auto) 0 (0-100) /uL Sodium 136 L (137-145) mmol/L Potassium 4.1 (3.4-5.1) mmol/L Chloride 100 (98-107) mmol/L Carbon Dioxide 28 (22-32) mmol/L BUN 19 H (7-17) mg/dL Creatinine 0.91 (0.52-1.04) mg/dL Estimated GFR > 60 (>60) mL/min BUN/Creatinine Ratio 20.9 (6-22) Glucose 114 H (80-110) mg/dL Calcium 8.9 (8.4-10.2) mg/dL Total Bilirubin 0.7 (0.2-1.3) mg/dL AST 27 (14-36) IU/L ALT 23 (<35) IU/L Alkaline Phosphatase 89 (38-126) U/L Total Protein 7.7 (6.3-8.2) g/dL Albumin 4.2 (3.5-5.0) g/dL Globulin 3.5 (1.7-4.1) g/dL Albumin/Globulin Ratio 1.2 (1.0-2.8) Urine RBC 0-1/hpf (0-5/HPF) Urine WBC 1-5/hpf (0-5/HPF) Ur Squamous Epith Cells 1-5 /hpf (0-5/HPF) Urine Bacteria Many (>30) H (None) Ur Culture Indicated? Specimen cultured Urine Dip Bedside Urine Glucose Negative Bedside Urine Bilirubin - Negative Bedside Urine Ketone - Negative Urine Specific [place] 1.01 Bedside Urine Occult Blood +/- Bedside Urine pH 7.0 Bedside Urine Protein - Negative Bedside Urine Urobilinogen - Negative Bedside Urine Nitrite - Negative Bedside Urine Leukocytes + 70 Esterase MDM Narrative Medical decision making narrative: This is a 71-year-old female presents to the emergency department due to left flank pain as well as some foul-smelling urine. UA positive for bacteria leuks. Patient also has a history of hospitalization secondary to pyelonephritis. Will treat with antibiotics to treat possible ascending UTI... CBC and CMP are unremarkable. <Ailyn Louise DO - Last Filed: 05/27/22 07:15> Lab Data Labs: Lab Results 05/22/22 05/22/22 05/22/22 Range/Units 10:55 13:00 13:00 WBC 8.7 (4.5-11.0) X10^3/uL RBC 4.52 (4.0-5.2) X10^6/uL Hgb 12.7 (12.0-16.0) g/dL Hct 38.1 (36-46) % MCV 84.3 (80-100) fL MCH 28.1 (26-34) PG MCHC 33.3 (30-36) % RDW 14.3 (11.6-14.8) % Plt Count 259 (150-400) X10^3/uL Neut % (Auto) 71.8 (50-75) % Lymph % (Auto) 18.5 L (25-40) % [place] % (Auto) 7.2 (3-14) % Eos % (Auto) 2.1 (2-4) % Baso % (Auto) 0.4 (0-2) % Neut # (Auto) 6200 (1719-8281) /uL Lymph # (Auto) 1600 (5652-5464) /uL [place] # (Auto) 600 (0-900) /uL Eos # (Auto) 200 (0-450) /uL Baso # (Auto) 0 (0-100) /uL Sodium 136 L (137-145) mmol/L Potassium 4.1 (3.4-5.1) mmol/L Chloride 100 (98-107) mmol/L Carbon Dioxide 28 (22-32) mmol/L BUN 19 H (7-17) mg/dL Creatinine 0.91 (0.52-1.04) mg/dL Estimated GFR > 60 (>60) mL/min BUN/Creatinine Ratio 20.9 (6-22) Glucose 114 H (80-110) mg/dL Calcium 8.9 (8.4-10.2) mg/dL Total Bilirubin 0.7 (0.2-1.3) mg/dL AST 27 (14-36) IU/L ALT 23 (<35) IU/L Alkaline Phosphatase 89 (38-126) U/L Total Protein 7.7 (6.3-8.2) g/dL Albumin 4.2 (3.5-5.0) g/dL Globulin 3.5 (1.7-4.1) g/dL Albumin/Globulin Ratio 1.2 (1.0-2.8) Urine RBC 0-1/hpf (0-5/HPF) Urine WBC 1-5/hpf (0-5/HPF) Ur Squamous Epith Cells 1-5 /hpf (0-5/HPF) Urine Bacteria Many (>30) H (None) Ur Culture Indicated? Specimen cultured Urine Dip Bedside Urine Glucose Negative Bedside Urine Bilirubin - Negative Bedside Urine Ketone - Negative Urine Specific [place] 1.01 Bedside Urine Occult Blood +/- Bedside Urine pH 7.0 Bedside Urine Protein - Negative Bedside Urine Urobilinogen - Negative Bedside Urine Nitrite - Negative Bedside Urine Leukocytes + 70 Esterase Discharge Plan Departure Patient Disposition: Home Clinical Impression: Acute UTI Instructions: DI for Urinary Tract Infection (UTI) Activity Restrictions/Additional Instructions: Thank you for coming to the [facility] Emergency Department today. Urine shows evidence of UTI. Please take your antibiotics as prescribed. I hope you feel better soon. Prescriptions: No Action simvastatin 40 MG tablet 40 mg PO QDAY Qty: 0 sertraline 100 MG tablet 100 mg PO QDAY Qty: 0 amlodipine 5 mg Tablet 5 mg PO DAILY metformin 500 mg Tablet Extended Release 24 Hr 500 mg PO DAILY bupropion HCl 300 mg Tablet Extended Release 24 Hr 300 mg PO QAM Referrals: Aysha Fuller PA-C [Primary Care Provider] - Visit Report Forms: Patient Portal/API <Ailyn Louise DO - Last Filed: 05/27/22 07:15> Cosign ED Attending Cosignature Attestation: I was immediately available in the department for consultation. Documentation has been reviewed. I agree with assessment and plan.
[2022-05-22 13:16] LABS: Add Manual Diff / Slide Review NO; Basophils Absolute Auto 0 /uL (0-100); Basophils Percent Auto 0.4 % (0-2); Eosinophils Absolute Auto 200 /uL (0-450); Eosinophils Percent Auto 2.1 % (2-4); Hematocrit 38.1 % (36-46); Hemoglobin 12.7 g/dL (12.0-16.0); Lymphocytes Absolute Auto 1600 /uL (1100-4500); Lymphocytes Percent Auto 18.5 % (25-40); Mean Corpuscular HGB Conc 33.3 % (30-36); Mean Corpuscular Hemoglobin 28.1 PG (26-34); Mean Corpuscular Volume 84.3 fL (80-100); Monocytes Absolute Auto 600 /uL (0-900); Monocytes Percent Auto 7.2 % (3-14); Neutrophils Absolute Auto 6200 /uL (1500-7000); Neutrophils Percent Auto 71.8 % (50-75); Platelet Count 259 X10^3/uL (150-400); Red Blood Cell Count 4.52 X10^6/uL (4.0-5.2); Red Cell Distribution Width 14.3 % (11.6-14.8); White Blood Cell Count 8.7 X10^3/uL (4.5-11.0)
[2022-05-22 13:30] LABS: Alanine Aminotransferase 23 IU/L (<35); Albumin 4.2 g/dL (3.5-5.0); Albumin Globulin Ratio 1.2 (1.0-2.8); Alkaline Phosphatase 89 U/L (38-126); Aspartate Aminotransferase 27 IU/L (14-36); BUN Creatinine Ratio 20.9 (6-22); Bilirubin Total 0.7 mg/dL (0.2-1.3); Blood Urea Nitrogen 19 mg/dL (7-17); Calcium 8.9 mg/dL (8.4-10.2); Carbon Dioxide 28 mmol/L (22-32); Chloride 100 mmol/L (98-107); Estimated Glomerular Filt Rate > 60 mL/min (>60); Globulin 3.5 g/dL (1.7-4.1); Glucose 114 mg/dL (80-110); HEMOLYSIS < 15 (0-50); Potassium 4.1 mmol/L (3.4-5.1); Sodium 136 mmol/L (137-145); Total Protein 7.7 g/dL (6.3-8.2)
== END 2022-05-22 14:20 | disposition home or self-care (01) ==
PROVIDERS: Emergency Medicine; Emergency Provider Physician Assistant Medical; PCP Student in an Organized Health Care Education/Training Program
DX: N39.0 Urinary tract infection, site not specified (principal)
CPT/HCPCS: 36415; 80053; 81003; 81015; 85025; 87077; 87086; 87186; 99281; 99282

== ENCOUNTER → 2023-02-24 11:58 | Outpatient (CLI) | payer MEDICARE, OTHER, SELFPAY ==
[2022-01-31 12:27] VITALS: BMI 29.4
== END ==
PROVIDERS: PCP Student in an Organized Health Care Education/Training Program; Visit Provider Physician Assistant
DX: N39.0 Urinary tract infection, site not specified (principal)
CPT/HCPCS: 87077; 87086; 87186

== ENCOUNTER → 2023-06-04 08:40 | Outpatient (CLI) | payer MEDICARE, OTHER, SELFPAY ==
[2022-01-31 12:27] VITALS: BMI 29.4
--- NOTE | 2023-06-04 | DI.MG.S_ITS ---
BILATERAL DIGITAL SCREENING MAMMOGRAM 3D/2D WITH CAD: 06/04/2023 CLINICAL: Routine screening. Comparison is made to exams dated: 07/01/2020 mammogram, 12/30/2018 mammogram - [facility], and 08/06/2017 mammogram - [facility]. There are scattered areas of fibroglandular density in both breasts (category b / 25%-50% glandular tissue). Current study was also evaluated with a Computer Aided Detection (CAD) system. No significant masses, calcifications, or other findings are seen in either breast. There has been no significant interval change. IMPRESSION: NEGATIVE There is no mammographic evidence of malignancy. A 1 year screening mammogram is recommended. Based on the Tyrer Cuzick model (a risk assessment model) the patient's lifetime risk is 4.1% and her 10 year risk is 2.6%. According to the ACR, ACS, and NCCN guidelines, an annual breast MRI exam along with mammogram is recommended if the patient's lifetime risk is 20% or greater. This exam was interpreted at Station ID: [id number]. NOTE: For mammograms, a report in lay terms will be sent to the patient. Approximately 15% of breast malignancies will not be visualized mammographically. In the management of a palpable breast mass, a negative mammogram must not discourage biopsy of a clinically suspicious lesion. Electronically Signed By: Shanta gresham/felipe:06/04/2023 09:15:51 letter sent: Normal Exam ACR BI-RADS Category 1: Negative [id number]
== END ==
PROVIDERS: PCP Student in an Organized Health Care Education/Training Program; Referring Provider Student in an Organized Health Care Education/Training Program; Visit Provider Student in an Organized Health Care Education/Training Program
DX: Z12.31 Encounter for screening mammogram for malignant neoplasm of breast (principal)
CPT/HCPCS: 77063; 77067

== ENCOUNTER → 2023-08-18 10:28 | Outpatient (CLI) | payer MEDICARE, OTHER, SELFPAY ==
[2022-01-31 12:27] VITALS: BMI 29.4
== END ==
PROVIDERS: PCP Student in an Organized Health Care Education/Training Program; Visit Provider Physician Assistant Medical
DX: N39.0 Urinary tract infection, site not specified (principal)
CPT/HCPCS: 87077; 87086; 87186

== ENCOUNTER → 2024-05-03 14:38 | Outpatient (CLI) | payer MEDICARE, OTHER, SELFPAY ==
[2022-01-31 12:27] VITALS: BMI 29.4
== END ==
PROVIDERS: PCP Student in an Organized Health Care Education/Training Program; Visit Provider Nurse Practitioner Family
DX: R30.0 Dysuria (principal)
CPT/HCPCS: 87077; 87086; 87186

== ENCOUNTER → 2024-06-02 11:19 | Outpatient (CLI) | payer MEDICARE, OTHER, SELFPAY ==
[2022-01-31 12:27] VITALS: BMI 29.4
== END ==
PROVIDERS: PCP Student in an Organized Health Care Education/Training Program; Visit Provider Nurse Practitioner Family
DX: R30.0 Dysuria (principal)
CPT/HCPCS: 87077; 87086

== ENCOUNTER → 2024-07-13 13:09 | Outpatient (CLI) | payer MEDICARE, OTHER, SELFPAY ==
[2022-01-31 12:27] VITALS: BMI 29.4
--- NOTE | 2024-07-13 13:11 | DI.MG.S_ITS ---
BILATERAL DIGITAL SCREENING MAMMOGRAM 3D/2D WITH CAD: 07/13/2024 CLINICAL: Routine screening. Comparison is made to exams dated: 06/04/2023 mammogram, 07/01/2020 mammogram, 12/30/2018 mammogram - [facility], 08/06/2017 mammogram, and 06/21/2016 mammogram - [facility]. There are scattered areas of fibroglandular density (category b / 25%-50% glandular tissue). Current study was also evaluated with a Computer Aided Detection (CAD) system. No significant masses, calcifications, or other findings are seen in either breast. There has been no significant interval change. IMPRESSION: NEGATIVE There is no mammographic evidence of malignancy. A 1 year screening mammogram is recommended. Based on the Tyrer Cuzick model (a risk assessment model) the patient's lifetime risk is 3.8% and her 10 year risk is 2.6%. According to the ACR, ACS, and NCCN guidelines, an annual breast MRI exam along with mammogram is recommended if the patient's lifetime risk is 20% or greater. This exam was interpreted at Station ID: [id number]. NOTE: For mammograms, a report in lay terms will be sent to the patient. Approximately 15% of breast malignancies will not be visualized mammographically. In the management of a palpable breast mass, a negative mammogram must not discourage biopsy of a clinically suspicious lesion. Electronically Signed By: Sofi Serrano M.D., Ph.D. cher/felipe:07/14/2024 12:30:04 letter sent: Normal Exam ACR BI-RADS Category 1: Negative
== END ==
PROVIDERS: PCP Physician Assistant; Referring Provider Physician Assistant; Visit Provider Physician Assistant
DX: Z12.31 Encounter for screening mammogram for malignant neoplasm of breast (principal)
CPT/HCPCS: 77063; 77067

== ENCOUNTER → 2024-08-25 15:39 | Outpatient (CLI) | payer MEDICARE, OTHER, SELFPAY ==
[2022-01-31 12:27] VITALS: BMI 29.4
--- NOTE | 2024-08-25 15:41 | DI.US.S_ITS ---
PROCEDURE: US RENAL COMPLETE INDICATIONS: HISTORY OF URINARY TRACT INFECTION TECHNIQUE: Real-time scanning was performed of the kidneys and bladder, with image documentation. COMPARISON: [facility], CT, CT KIDNEY URETER BLADDER (KUB), 11/10/2021, 15:53. FINDINGS: Kidneys: Kidneys are normal in size. Right kidney measures 10.3 cm long; left kidney measures 9.3 cm long. Right renal cortical thickness is 0.7 cm; left renal cortical thickness is 1.2 cm. Moderate pelvocaliectasis is present on the right. Echogenic foci are present within the right kidney measuring 4 mm and 7 mm. There is a somewhat rounded area of echogenicity within the right kidney measuring approximately 9 x 7 x 7 mm. This does not correlate to an abnormality present in 2021. Septated cyst is present within the left kidney measuring 1.1 cm. Bladder: Pre-void bladder volume is 90 mL. Post-void residual is 6 mL. Pre-void images demonstrate no intraluminal masses or stones. On pre-void images, neither ureteral jets are noted with color Doppler interrogation. (Of note, ureteral jets may not be detectable in up to 25% of cases due to insufficient differences in specific gravity between ureteral and bladder urine). Linear focus of increased echogenicity is present near the ureterovesicular junction measuring 3 x 5 mm. Miscellaneous: No free pelvic fluid. Hepatic steatosis. Focus of increased echogenicity is present within the uterus measuring 1.7 cm. IMPRESSION: Moderate pelvocaliectasis is present within the right kidney. Areas of increased echogenicity are present within the kidney suspicious for calcification. Rounded focus of relative increased echogenicity is present within the right kidney which could represent angiomyolipoma. This is not visualized on prior CT. Increased echogenicity is present within the uterus possibly related to calcification. Pelvic ultrasound may be obtained as clinically indicated. Linear focus at the ureterovesicular junction. This could represent a phlebolith or less likely subcentimeter stone. Dictated by: Melodie Rea M.D. on 08/26/2024 at 15:40 Approved by: Melodie Rea M.D. on 08/26/2024 at 15:46
== END ==
PROVIDERS: PCP Physician Assistant; Referring Provider Student in an Organized Health Care Education/Training Program; Visit Provider Student in an Organized Health Care Education/Training Program
DX: Z87.440 Personal history of urinary (tract) infections (principal); Z09 Encounter for follow-up examination after completed treatment for conditions other than malignant neoplasm; N28.89 Other specified disorders of kidney and ureter
CPT/HCPCS: 76770

== ENCOUNTER → 2024-10-11 07:58 | Outpatient (CLI) | payer MEDICARE, OTHER, SELFPAY ==
[2022-01-31 12:27] VITALS: BMI 29.4
--- NOTE | 2024-10-11 08:01 | DI.CT.S_ITS ---
PROCEDURE: CT IVP A/P W/WO INDICATIONS: RENAL MASS TECHNIQUE: Optional 5 mm thick noncontrast images acquired from the diaphragm to the symphysis pubis. After the administration of intravenous contrast, 5 mm thick images acquired from the diaphragm to the symphysis pubis after a 10-minute delay. 2 mm thick coronal and sagittal reformats were then performed of the kidneys and ureters. For radiation dose reduction, the following was used: automated exposure control, adjustment of mA and/or kV according to patient size. COMPARISON: [facility], CT, CT ANGIO CHEST ABDOMEN PELVIS, 01/31/2022, 5:49. [facility], US, US RENAL COMPLETE, 08/25/2024, 16:03. FINDINGS: Image quality: Diagnostic Lower chest: Basal atelectasis. Laii-ks-jzwtphqs hiatal hernia and nonspecific wall thickening at the gastroesophageal junction Liver: Subcentimeter lesions are seen, too small to characterize, usually cysts Gallbladder and biliary system: Unremarkable, nondilated Pancreas: Ftnw-[id number] parenchymal atrophy. No ductal dilation Spleen: Prominent at 13 cm Adrenals: No discrete nodules Kidneys: Subcentimeter lesions are too small to characterize, usually cysts. Left mid region cyst is again seen measuring 1.1 cm. No obstructing calcified stone or hydronephrosis. No solid renal mass is seen. No CT correlate identified for the echogenic finding in the right kidney No suspicious ureter filling defect. Mild pelviectasis bilaterally, with normal diameter ureters. Vessels and lymph nodes: Main portal vein appears patent. No abdominal aortic aneurysm. No lymph nodes enlarged by CT size criteria. Bowel and peritoneum: No small bowel obstruction. No drainable ascites. Colonic diverticulosis. Body wall: Unremarkable. Small fat containing umbilical hernia Pelvis: Mild nonspecific bladder wall thickening. Reproductive organs are unremarkable on limited CT evaluation Bones: No aggressive appearing osseous abnormality IMPRESSION: No solid renal mass identified. No CT correlate identified for the echogenic sonographic finding. Mild bilateral renal pelviectasis with normal diameter ureters, possibly mild chronic UPJ narrowing. Mild nonspecific bladder wall thickening, correlate urinalysis. Consider cystoscopy to evaluate the lower tracts, if clinically indicated. Other findings above. Dictated by: Gt Guerrero M.D. on 10/11/2024 at 13:06 Approved by: Gt Guerrero M.D. on 10/11/2024 at 13:14
[2024-10-11 08:58] LABS: Estimated Glomerular Filt Rate > 60 mL/min (>60)
== END ==
LOC: CT 08:00
PROVIDERS: PCP Physician Assistant; Referring Provider Urology; Visit Provider Urology
DX: N28.89 Other specified disorders of kidney and ureter (principal); N13.30 Unspecified hydronephrosis; J98.11 Atelectasis; K42.9 Umbilical hernia without obstruction or gangrene; K44.9 Diaphragmatic hernia without obstruction or gangrene; K86.89 Other specified diseases of pancreas; K57.30 Diverticulosis of large intestine without perforation or abscess without bleeding
CPT/HCPCS: 36415; 74178; 82565; Q9967